=== PATIENT | female | born 1990 | race Caucasian/White ===

== ENCOUNTER 2017-11-25 13:31 | Inpatient (IN) | payer MEDICARE, MEDICAID ==
[2017-11-25] MEDS ORDERED: LORazepam 2 MG/ML INJ IV STA (14:03)
[2017-11-25] MEDS ORDERED: SODIUM CHLORIDE 0.9% 1,000 ML IV STA (14:04)
[2017-11-25] MEDS ORDERED: SODIUM CHLORIDE 0.9% 500 ML IV STA (14:04)
[2017-11-25] MEDS ORDERED: IBUPROFEN 800 MG TAB PO STA (14:05)
[2017-11-25] MEDS ORDERED: ACETAMINOPHEN TAB 500 MG TAB PO STA (14:05)
[2017-11-25 14:10] LABS: Appearance,Urine Cloudy (Clear); Bacteria,Urine Occasional /hpf; Bilirubin,Urine Negative (Negative); Blood,Urine Negative (Negative); Color,Urine Yellow; Glucose,Urine (UA) Negative (Negative); Ketones,Urine 3+ (Negative); Leukocyte Esterase,Urine Moderate (Negative); Mucus,Urine Many /hpf; Nitrite,Urine Negative (Negative); PH, Urine 6.5 (5.0-8.0); Protein,Urine 2+ (Negative); Specific Gravity,Urine 1.017 (1.001-1.035); Squamous Epithelial Cell,Urine 14 /hpf (0-4); WBC,Urine 30 /hpf (0-5)
[2017-11-25 14:17] LABS: Amphetamine Screen,Urine Not Detected (NotDetected); Benzodiazepines Screen,Urine Not Detected (NotDetected); Cocaine Screen,Urine Not Detected (NotDetected); Methadone Screen, Urine Not Detected (NotDetected); Opiate Screen,Urine Not Detected (NotDetected); Phencyclidine Screen,Urine Not Detected (NotDetected); Tricyclic Antidepressant,Urine Not Detected (NotDetected); Urn Cannabinoid Scrn Not Detected (NotDetected)
[2017-11-25 14:18] LABS: Barbiturate Screen,Urine Not Detected (NotDetected); Oxycodone Screen, Urine Not Detected (NotDetected)
[2017-11-25 14:22] LABS: Basophils % (A) 0 %; Eosinophils # (A) 0.1 k/uL (0-0.7); Eosinophils % (A) 1 %; HCT 38.1 % (34.0-46.0); Lymphocytes % (A) 21 %; MCH 32.3 pg (25.0-35.0); MCHC 34.1 g/dL (31.0-37.0); MCV 94.7 fL (80.0-100.0); Mean Platelet Volume 7.1; Monocytes # (A) 0.8 k/uL (0-1.0); Monocytes % (A) 8 %; Neutrophils # (A) 6.6 k/uL (1.3-7.7); Neutrophils % (A) 69 %; Platelet Count 186 k/uL (150-450); RBC 4.03 m/uL (3.80-5.40); RDW 14.2 % (11.5-15.5); WBC 9.6 k/uL (3.8-10.6)
--- NOTE | 2017-11-25 14:23 | ED ---
General Adult HPI - General Source: patient, RN notes reviewed, old records reviewed Mode of arrival: ambulatory Limitations: no limitations <Jones Corrigan - Last Filed: 11/25/17 14:22> <Tre Washburn - Last Filed: 11/25/17 18:25> - General Chief complaint: Psychiatric Symptoms Stated complaint: Mental health Time Seen by Provider: 11/25/17 13:36 - History of Present Illness Initial comments: This is a 19-year-old female to the ER for evaluation. She presents today for evaluation of psychiatric illness, patient was found at [facility] earlier today wandering around with very pressured speech and altered mental state, not acting appropriate. Patient's brought in by her former counselor at [facility] as she has never seen in this behavior before. Patient's poor strain secondary to current clinical condition (Jones Corrigan) - Related Data Home Medications Medication Instructions Recorded Confirmed No Known Home Medications [No 11/25/17 11/25/17 Known Home Medications] Allergies Allergy/AdvReac Type Severity Reaction Status Date / Time bee pollen Allergy Unknown Verified 11/25/17 14:28 ciprofloxacin [From Cipro] Allergy Unknown Verified 11/25/17 14:28 ciprofloxacin HCl Allergy Unknown Verified 11/25/17 14:28 [From Cipro] lactose Allergy Unknown Verified 11/25/17 14:28 latex Allergy Rash/Hives Verified 11/25/17 14:28 Review of Systems ROS Other: All systems not noted in ROS Statement are negative. <Jones Corrigan - Last Filed: 11/25/17 14:22> ROS Other: All systems not noted in ROS Statement are negative. <Tre Washburn - Last Filed: 11/25/17 18:25> ROS Statement: Those systems with pertinent positive or pertinent negative responses have been documented in the HPI. Past Medical History Past Medical History: Asthma History of Any Multi-Drug Resistant Organisms: None Reported Past Surgical History: No Surgical Hx Reported Additional Past Surgical History / Comment(s): Myringotomy with tube placement Past Psychological History: ADD/ADHD, Anxiety, Depression, Schizoaffective Disorder Smoking Status: Current every day smoker Past Alcohol Use History: Occasional Past Drug Use History: None Reported - Past Family History Father Family Medical History: Hypertension <Jones Corrigan - Last Filed: 11/25/17 14:22> General Exam Limitations: no limitations General appearance: alert, in no apparent distress Head exam: Present: atraumatic, normocephalic, normal inspection Eye exam: Present: normal appearance, PERRL, EOMI. Absent: scleral icterus, conjunctival injection, periorbital swelling ENT exam: Present: normal exam, mucous membranes moist Neck exam: Present: normal inspection. Absent: tenderness, meningismus, lymphadenopathy Respiratory exam: Present: normal lung sounds bilaterally. Absent: respiratory distress, wheezes, rales, rhonchi, stridor Cardiovascular Exam: Present: regular rate, normal rhythm, normal heart sounds. Absent: systolic murmur, diastolic murmur, rubs, gallop, clicks GI/Abdominal exam: Present: soft, normal bowel sounds. Absent: distended, tenderness, guarding, rebound, rigid Extremities exam: Present: normal inspection, full ROM, normal capillary refill. Absent: tenderness, pedal edema, joint swelling, calf tenderness Back exam: Present: normal inspection Neurological exam: Present: alert, oriented X3, CN II-XII intact Psychiatric exam: Present: normal affect, normal mood Skin exam: Present: warm, dry, intact, normal color. Absent: rash <Jones Corrigan - Last Filed: 11/25/17 14:22> Vital Signs 11/25/17 11/25/17 13:38 16:58 Temperature 100.3 F H 99.2 F Pulse Rate 128 H 92 Respiratory 18 18 Rate Blood Pressure 158/70 138/64 O2 Sat by Pulse 99 99 Oximetry Medical Decision Making <Jones Corrigan - Last Filed: 11/25/17 14:22> - Lab Data Result diagrams: 11/25/17 14:10 11/25/17 14:10 <Tre Washburn - Last Filed: 11/25/17 18:25> - Medical Decision Making Patient evaluated by EPS, she does meet inpatient psychiatric treatment. She will be admitted to this institution. Patient's urine does have signs of infection, this is contaminated urine. Urine culture will be obtained. Patient is started on Keflex that she is currently . Patient is uncertain how far along she was provided ultrasound will be obtained. She denies any vaginal bleeding or vaginal discharge. Ultrasound shows 12 week 3 day gestation, no complications. Patient will be admitted for inpatient psychiatric care. (Tre Washburn) - Lab Data Lab Results 11/25/17 11/25/17 11/25/17 Range/Units 13:48 13:48 13:48 WBC (3.8-10.6) k/uL RBC (3.80-5.40) m/uL Hgb (11.4-16.0) gm/dL Hct (34.0-46.0) % MCV (80.0-100.0) fL MCH (25.0-35.0) pg MCHC (31.0-37.0) g/dL RDW (11.5-15.5) % Plt Count (150-450) k/uL Neutrophils % % Lymphocytes % % Monocytes % % Eosinophils % % Basophils % % Neutrophils # (1.3-7.7) k/uL Lymphocytes # (1.0-4.8) k/uL Monocytes # (0-1.0) k/uL Eosinophils # (0-0.7) k/uL Basophils # (0-0.2) k/uL Sodium (137-145) mmol/L Potassium (3.5-5.1) mmol/L Chloride (98-107) mmol/L Carbon Dioxide (22-30) mmol/L Anion Gap mmol/L BUN (7-17) mg/dL Creatinine (0.52-1.04) mg/dL Est GFR (MDRD) Af Amer (>60 ml/min/1.73 sqM) Est GFR (MDRD) Non-Af (>60 ml/min/1.73 sqM) Glucose (74-99) mg/dL Calcium (8.4-10.2) mg/dL Total Bilirubin (0.2-1.3) mg/dL AST (14-36) U/L ALT (9-52) U/L Alkaline Phosphatase (38-126) U/L Total Protein (6.3-8.2) g/dL Albumin (3.5-5.0) g/dL Urine Color Yellow Urine Appearance Cloudy H (Clear) Urine pH 6.5 (5.0-8.0) Ur Specific [place] 1.017 (1.001-1.035) Urine Protein 2+ H (Negative) Urine Glucose (UA) Negative (Negative) Urine Ketones 3+ H (Negative) Urine Blood Negative (Negative) Urine Nitrite Negative (Negative) Urine Bilirubin Negative (Negative) Urine Urobilinogen 2.0 (<2.0) mg/dL Ur Leukocyte Esterase Moderate H (Negative) Urine WBC 30 H (0-5) /hpf Ur Squamous Epith Cells 14 H (0-4) /hpf Urine Bacteria Occasional H (None) /hpf Urine Mucus Many H (None) /hpf Urine HCG, Qual Detected (Not Detectd) Salicylates mg/dL Urine Opiates Screen Not Detected (NotDetected) Ur Oxycodone Screen Not Detected (NotDetected) Urine Methadone Screen Not Detected (NotDetected) Ur Propoxyphene Screen Not Detected (NotDetected) Acetaminophen ug/mL Ur Barbiturates Screen Not Detected (NotDetected) U Tricyclic Antidepress Not Detected (NotDetected) Ur Phencyclidine Scrn Not Detected (NotDetected) Ur Amphetamines Screen Not Detected (NotDetected) U Methamphetamines Scrn Not Detected (NotDetected) U Benzodiazepines Scrn Not Detected (NotDetected) Urine Cocaine Screen Not Detected (NotDetected) U Marijuana (THC) Screen Not Detected (NotDetected) Serum Alcohol mg/dL 11/25/17 11/25/17 11/25/17 Range/Units 14:10 14:10 14:10 WBC 9.6 (3.8-10.6) k/uL RBC 4.03 (3.80-5.40) m/uL Hgb 13.0 (11.4-16.0) gm/dL Hct 38.1 (34.0-46.0) % MCV 94.7 (80.0-100.0) fL MCH 32.3 (25.0-35.0) pg MCHC 34.1 (31.0-37.0) g/dL RDW 14.2 (11.5-15.5) % Plt Count 186 (150-450) k/uL Neutrophils % 69 % Lymphocytes % 21 % Monocytes % 8 % Eosinophils % 1 % Basophils % 0 % Neutrophils # 6.6 (1.3-7.7) k/uL Lymphocytes # 2.0 (1.0-4.8) k/uL Monocytes # 0.8 (0-1.0) k/uL Eosinophils # 0.1 (0-0.7) k/uL Basophils # 0.0 (0-0.2) k/uL Sodium 137 (137-145) mmol/L Potassium 3.9 (3.5-5.1) mmol/L Chloride 106 (98-107) mmol/L Carbon Dioxide 20 L (22-30) mmol/L Anion Gap 11 mmol/L BUN 8 (7-17) mg/dL Creatinine 0.65 (0.52-1.04) mg/dL Est GFR (MDRD) Af Amer >60 (>60 ml/min/1.73 sqM) Est GFR (MDRD) Non-Af >60 (>60 ml/min/1.73 sqM) Glucose 87 (74-99) mg/dL Calcium 9.4 (8.4-10.2) mg/dL Total Bilirubin 0.4 (0.2-1.3) mg/dL AST 36 (14-36) U/L ALT 26 (9-52) U/L Alkaline Phosphatase 47 (38-126) U/L Total Protein 6.7 (6.3-8.2) g/dL Albumin 3.8 (3.5-5.0) g/dL Urine Color Urine Appearance (Clear) Urine pH (5.0-8.0) Ur Specific [place] (1.001-1.035) Urine Protein (Negative) Urine Glucose (UA) (Negative) Urine Ketones (Negative) Urine Blood (Negative) Urine Nitrite (Negative) Urine Bilirubin (Negative) Urine Urobilinogen (<2.0) mg/dL Ur Leukocyte Esterase (Negative) Urine WBC (0-5) /hpf Ur Squamous Epith Cells (0-4) /hpf Urine Bacteria (None) /hpf Urine Mucus (None) /hpf Urine HCG, Qual (Not Detectd) Salicylates <1.0 mg/dL Urine Opiates Screen (NotDetected) Ur Oxycodone Screen (NotDetected) Urine Methadone Screen (NotDetected) Ur Propoxyphene Screen (NotDetected) Acetaminophen <10.0 ug/mL Ur Barbiturates Screen (NotDetected) U Tricyclic Antidepress (NotDetected) Ur Phencyclidine Scrn (NotDetected) Ur Amphetamines Screen (NotDetected) U Methamphetamines Scrn (NotDetected) U Benzodiazepines Scrn (NotDetected) Urine Cocaine Screen (NotDetected) U Marijuana (THC) Screen (NotDetected) Serum Alcohol <10 mg/dL Disposition <Jones Corrigan - Last Filed: 11/25/17 14:22> Decision to Admit Reason: Admit from EC Decision Date: 11/25/17 Decision Time: 17:24 <Tre Washburn - Last Filed: 11/25/17 18:25> Clinical Impression: Psychosis, Acute psychosis Disposition: ADMITTED IP TO THIS HOSP
[2017-11-25 14:34] LABS: Acetaminophen <10.0 ug/mL; Alcohol <10 mg/dL; Salicylate <1.0 mg/dL
[2017-11-25] MEDS ORDERED: CEPHALEXIN 500 MG CAP PO STA (17:28)
[2017-11-25 17:50] LABS: ALT 26 U/L (9-52); AST 36 U/L (14-36); Albumin 3.8 g/dL (3.5-5.0); Alkaline Phosphatase 47 U/L (38-126); Anion Gap 11 mmol/L; Blood Urea Nitrogen 8 mg/dL (7-17); Calcium 9.4 mg/dL (8.4-10.2); Carbon Dioxide 20 mmol/L (22-30); Chloride 106 mmol/L (98-107); Glucose 87 mg/dL (74-99); Potassium 3.9 mmol/L (3.5-5.1); Sodium 137 mmol/L (137-145); Total Bilirubin 0.4 mg/dL (0.2-1.3); Total Protein 6.7 g/dL (6.3-8.2)
--- NOTE | 2017-11-25 18:20 | US ---
EXAMINATION TYPE: US OB <= 14 wk fetus DATE OF EXAM: 11/25/2017 COMPARISON: NONE CLINICAL HISTORY: Pain. EXAM PERFORMED: Transabdominal (TA) EXAM MEASUREMENTS: GESTATIONAL AGE / DATING Physician Established: Not yet established Dates by LMP: (12 weeks/5 days) EDC: 06/04/2018 Dates by First Scan: No previous this is first scan Dates by Current Scan for: (12 weeks/3 days) EDC: 06/06/2018 MATERNAL ANATOMY Uterus: 13.6 x 8.0 x 9.9 cm Right Ovary: 2.1 x 1.6 x 2.1 cm Left Ovary: 3.2 x 1.5 x 2.1 cm Post CDS / Adnexa: wnl Presence of free fluid: no Presence of corpus luteal cyst: no Presence of subchorionic bleed: no GESTATION / SURVEY CRL: 5.9cm (12 weeks/3 days) Heart Rate: 168 bpm Rhythm: Normal IUP: Viable IUP Date of LMP: 08/28/2017 Beta HcG (if available): Not available at this time Viable IUP 12w3d KAREN 06/06/2018 HR 168 BPM IMPRESSION: No complicating process seen. This is the first exam.
[2017-11-25] MEDS ORDERED: ACETAMINOPHEN TAB 325 MG TAB PO PRN (22:38)
[2017-11-25] MEDS ORDERED: SODIUM CHLORIDE 0.9% 1,000 ML IV SCH (22:45)
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
[2017-11-26] MEDS: CEPHALEXIN 500 MG CAP PO SCH ×2 (08:46→20:28)
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
[2017-11-26] MEDS ORDERED: DOCUSATE 100 MG CAP PO PRN (10:23)
[2017-11-26] MEDS ORDERED: CALCIUM CARBONATE 500 MG CHEWABLE PO PRN (10:23)
[2017-11-26] MEDS: ARIPiprazole 10 MG TAB PO SCH (10:44)
--- NOTE | 2017-11-26 11:15 | P.PN ---
Subjective Progress Note Date: 11/26/17 Principal diagnosis: Patient is a 27-year-old female who is and is seen on the psychiatric unit after being referred from [facility] for abnormal behaviors. In the ER she was found to have a positive urine test and dates by ultrasound show 12 weeks 3 days, dates by last period showed 12 weeks 5 days. Also found to have a urinary tract infection with fever and tachycardia. Tachycardia may be due more to her than actual sepsis. She clinically does not appear septic. Patient seen and examined. She would not leave the hallway to talk or be seen. She is having word salad and jumping thought process. Her thinking is tangential and she is unable to answer questions. She is demonstrating palilalia. We are unable to have a meaningful conversation. Objective - Vital Signs Vital signs: Vital Signs Temp 98.3 F 11/26/17 07:14 Pulse 87 11/26/17 07:14 Resp 16 11/26/17 07:14 BP 119/56 11/26/17 07:14 Pulse Ox 99 11/25/17 16:58 Intake & Output 11/25/17 11/26/17 11/26/17 18:59 06:59 18:59 Intake Total 1000 Balance 1000 Weight 99.79 kg 97.1 kg Intake: IV 1000 Invasive Line 1 1000 - Exam General: non toxic, no distress, appears at stated age Derm: warm, dry Head: atraumatic, normocephalic, symmetric Eyes: EOMI, no lid lag, anicteric sclera Cardiovascular: S1S2 reg, no murmur Psych: Alert, oriented to self, anxious, flight of ideas - Labs CBC & Chem 7: 11/25/17 14:10 11/25/17 14:10 Labs: Abnormal Lab Results - Last 24 Hours (Table) 11/25/17 11/25/17 Range/Units 13:48 14:10 Carbon Dioxide 20 L (22-30) mmol/L Urine Appearance Cloudy H (Clear) Urine Protein 2+ H (Negative) Urine Ketones 3+ H (Negative) Ur Leukocyte Esterase Moderate H (Negative) Urine WBC 30 H (0-5) /hpf Ur Squamous Epith Cells 14 H (0-4) /hpf Urine Bacteria Occasional H (None) /hpf Urine Mucus Many H (None) /hpf Microbiology - Last 24 Hours (Table) 11/25/17 14:10 Urine Culture - Preliminary Urine,Voided Assessment and Plan Assessment: Intrauterine 12 weeks 3 days - vitamin - will need to see an UNDERGROUND [facility]ER after discharge, may need MFM with use of antipsychotics Probable UTI - Keflex - Await urine culture Psychosis - your psych management Will plan to follow urine culture daily, will attempt to re-eval once more coherent to determine plan of care for .
[2017-11-26] MEDS: PRENATAL VIT-IRON-FOLIC ACID 1 EACH CAP PO SCH (12:00)
[2017-11-27] MEDS: CEPHALEXIN 500 MG CAP PO SCH ×2 (09:52→21:33)
[2017-11-27] MEDS: ARIPiprazole 10 MG TAB PO SCH (09:52)
[2017-11-27] MEDS: PRENATAL VIT-IRON-FOLIC ACID 1 EACH CAP PO SCH (12:56)
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
[2017-11-28] MEDS: CEPHALEXIN 500 MG CAP PO SCH ×2 (09:51→21:41)
[2017-11-28] MEDS: ARIPiprazole 10 MG TAB PO SCH (09:51)
--- NOTE | 2017-11-28 10:54 | P.PN ---
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 She then said "Sorry I can't do this". Said sorry multiple times and walked away with tears. Then in the kline speaking nonsensically. Will attempt to follow-up again in a few days. If she is unable to converse about this may need to have social work d/w family about pernatal care. Nayely Medina, DO
[2017-11-28] MEDS ORDERED: diphenhydrAMINE 50 MG CAP PO PRN (13:01)
[2017-11-28] MEDS: PRENATAL VIT-IRON-FOLIC ACID 1 EACH CAP PO SCH (13:31)
--- NOTE | 2017-11-28 15:24 | PN ---
PROGRESS NOTE DATE OF SERVICE: 11/28/2017 INTERVAL HISTORY: Patient is seen in cross coverage today for Dr. Lord. She is seen with female nursing staff present. Her thought processes are very disorganized during the session. She was seen earlier during the day on the unit banging against the nurses station door. MENTAL STATUS EXAM: She is alert, cooperative with coming to the interview room with nursing staff. Her thought processes are very disorganized and tangential. She does not make any statements about harm to self or others. She does not show any significant agitation during this time. She does make motions with her hands. PLAN: Will maintain Abilify as current. Monitor for any medication side effects. Monitor her ongoing response. Benadryl p.r.n. has been ordered in case there is any significant agitation. Dr. Lord to resume care of this patient starting tomorrow. MMNELIL / IJFelix: [id number] /
[2017-11-29] MEDS: ARIPiprazole 10 MG TAB PO SCH (08:26)
[2017-11-29] MEDS ORDERED: ARIPiprazole 5 MG TAB PO ONE (10:54)
--- NOTE | 2017-11-29 10:59 | P.PN ---
Progress Note - Text Interval history: The patient is found in the hallway she follows me to an interview room. She is seated in the chair but frequently moves. She has frequent odd gesturing of her hands and arms. She has spontaneous speech that is pressured and her thought process is quite disorganized. She does not answer any questions in a linear fashion. Staff report that the patient remains confused and demonstrated symptoms of edward and psychosis. Mental status exam: The patient is a female appearing her stated age. She is wearing eyeglasses. She is dressed in hospital gowns. She continues to demonstrate symptoms of edward with psychosis. Insight and judgment are poor. She demonstrates no verbal or physical aggressiveness. Eventually she is directable in the session. She answers no questions regarding cognitive testing. A full psychiatric review of systems could not be completed. Plan: The patient has been compliant with the Abilify we will titrate to 15 mg daily. Vital signs reviewed. Internal medicine has attempted to meet with the patient. We will continue to monitor the patient for safety we will monitor her by mouth intake. She requires continued psychiatric hospitalization due to her symptoms of edward and psychosis. She requires use of an antipsychotic medication to stabilize her symptoms.
[2017-11-29] MEDS: PRENATAL VIT-IRON-FOLIC ACID 1 EACH CAP PO SCH (12:43)
[2017-11-29] MEDS ORDERED: diphenhydrAMINE 50 MG CAP PO PRN (17:17)
[2017-11-29] MEDS: diphenhydrAMINE 50 MG/ML 1 ML VIAL IM PRN (17:19)
[2017-11-30] MEDS: diphenhydrAMINE 50 MG/ML 1 ML VIAL IM PRN (06:30)
[2017-11-30] MEDS: ARIPiprazole 15 MG TAB PO SCH (09:11)
[2017-11-30] MEDS: PRENATAL VIT-IRON-FOLIC ACID 1 EACH CAP PO SCH (11:17)
--- NOTE | 2017-11-30 12:01 | P.PN ---
Progress Note - Text Interval history: The patient is found in her room she follows me to an interview room. Staff reports that the patient had difficulty sleeping last night she has demonstrated some agitated behavior being physically aggressive with staff. The patient's is seated in the chair she has nonstop speech. She demonstrates flight of ideas. She answers no questions in a relevant fashion. Metal status exam: The patient is an alert female she seated in the chair she is wrapped in a blanket. She has a disheveled appearance. Eye contact is staring in nature. Speech is fluent spontaneous and is pressured. She does not speak in a loud tone during our session. Thought process demonstrates flight of ideas. There is no discernible link between topics she discusses. She speaks of paranoid and persecutory themes. Insight and judgment are poor. She does not answer any questions regarding cognitive testing. Plan: The patient remains manic with symptoms of psychosis. We have increased the Abilify. She did receive Benadryl last evening for agitation. Vital signs reviewed. We will continue to monitor her for safety and encourage appropriate participation in the milieu. Reality orientation is provided when possible. She requires continued hospitalization.
[2017-11-30] MEDS ORDERED: CALCIUM CARBONATE 500 MG CHEWABLE PO ONE (23:52)
[2017-12-01] MEDS ORDERED: HALOPERIDOL LACTATE 5 MG/ML 1 ML VIAL ONE ×2 (01:57→02:00)
[2017-12-01] MEDS: ARIPiprazole 15 MG TAB PO SCH (09:15)
[2017-12-01] MEDS: PRENATAL VIT-IRON-FOLIC ACID 1 EACH CAP PO SCH (09:15)
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
--- NOTE | 2017-12-01 15:56 | US ---
EXAMINATION TYPE: US OB <= 14 wk fetus DATE OF EXAM: 12/01/2017 COMPARISON: NONE CLINICAL HISTORY: Viability due to possible vaginal bleeding. . bleeding, no pain EXAM PERFORMED: Transabdominal (TA) EXAM MEASUREMENTS: GESTATIONAL AGE / DATING Dates by LMP: (13 weeks/4 days) EDC: 06/04/2018 Dates by Current Scan for: (13 weeks/5 days) EDC: 06/03/2018 MATERNAL ANATOMY Uterus: 13.6 x 10.1 x 7.8 cm Right Ovary: 2.9 x 2.2 x 2.2 cm Left Ovary: Not visualized Post CDS / Adnexa: wnl, no free fluid Presence of free fluid: no Presence of corpus luteal cyst: right ovarian hypoechoic lesion with internal debris = 1.9 x 1.6 x 1. 6 cm Presence of subchorionic bleed: Hypoechoic lesion seen in fundal region at tip of placenta = 3.4 x 3. 8 x 1.2 cm GESTATION / SURVEY CRL: 7.7 cm (13 weeks/5 days) MSD: Seen, not measured Yolk Sac (normal less than 6mm): Not seen Heart Rate: 149 bpm Rhythm: Normal IUP: Viable IUP Date of LMP: 08/28/2017 Live single IUP measuring 13 weeks 5 days. IMPRESSION: Single viable intrauterine corresponding to an ultrasound age of 13 weeks 5 days with estim ated date of delivery 06/03/2018. There is a probable subchorionic hemorrhage as described.
[2017-12-01] MEDS ORDERED: diphenhydrAMINE 50 MG CAP PO SCH (19:00)
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
[2017-12-02] MEDS: PRENATAL VIT-IRON-FOLIC ACID 1 EACH CAP PO SCH (11:13)
[2017-12-02] MEDS: diphenhydrAMINE 50 MG CAP PO SCH (19:19)
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
[2017-12-03 10:13] LABS: HCT 37.7 % (34.0-46.0); HGB 12.9 gm/dL (11.4-16.0); MCH 31.9 pg (25.0-35.0); MCHC 34.1 g/dL (31.0-37.0); MCV 93.4 fL (80.0-100.0); Mean Platelet Volume 6.8; Platelet Count 212 k/uL (150-450); RBC 4.04 m/uL (3.80-5.40); WBC 9.3 k/uL (3.8-10.6)
[2017-12-03 11:24] LABS: Lymphocytes # (M) 1.95 k/uL (1.0-4.8); Monocytes # (M) 0.19 k/uL (0-1.0); Neutrophils # (M) 7.25 k/uL (1.3-7.7); Neutrophils % (M) 78 %; Nucleated Red Blood Cells 0 /100 WBC (0-0); Total Cells Counted 200
[2017-12-03] MEDS: PRENATAL VIT-IRON-FOLIC ACID 1 EACH CAP PO SCH (11:45)
--- NOTE | 2017-12-03 12:25 | PN ---
PROGRESS NOTE DATE OF SERVICE: 12/03/2017 CHIEF COMPLAINT: The patient was admitted due to edward with psychosis. She had pressured speech, incoherent thoughts, mood swings, and disorganized thoughts. INTERVAL HISTORY: Patient has been doing fair. She had a quiet evening last night. She slept 5 hours. Today she has been up. She wanders about. She has not been taking her Abilify. She did have some difficulty yesterday and received Benadryl which seemed to help calm her. She has not been attending groups. Mostly she wanders the unit. She will make odd statements. Her mood is moderately elevated. She has disorganized thoughts. She was seen by Dr. Whiteside for OB consultation. She was assessed as a 14-week intrauterine with a small subchronic bleed that was clinically stable. There were no further recommendations from her general OB status. She had been tolerating her psychotropic medication. MENTAL STATUS: Patient was wandering. She made a few comments that were disconnected. She had a faint smile on her face. Her affect was constricted. Her mood appeared somewhat elevated. It was difficult to say if she was distressed. ASSESSMENT: I will continue the current diagnosis and treatment plan. We will continue to encourage her to get restarted on Abilify. Will continue to focus on stabilization and discharge planning. STONEL / LITON: [id number] /
[2017-12-03 17:40] LABS: HIV AB P24 Non-Reactive (Non-Reactive); HIV P24 AG Non-Reactive (Non-Reactive)
[2017-12-03] MEDS: diphenhydrAMINE 50 MG CAP PO SCH (19:11)
[2017-12-04] MEDS ORDERED: HALOPERIDOL 5 MG TAB PO SCH (11:00)
[2017-12-04] MEDS: PRENATAL VIT-IRON-FOLIC ACID 1 EACH CAP PO SCH (11:14)
--- NOTE | 2017-12-04 13:08 | PN ---
PROGRESS NOTE DATE OF SERVICE: 12/04/2017 CHIEF COMPLAINT: The patient was admitted due to edward with psychosis. She had pressured speech, incoherent thoughts, mood swings and disorganized thoughts. INTERVAL HISTORY: The patient has been doing fair. She wandered about last evening. She slept about 5 hours. She said she did not sleep very well last night. She wanders about the unit. She will interact a little with others. She continues to be disorganized in her thoughts. She will make random comments to people around her. She does not attend groups. She says she has been having problems with anxiety. She continues to have disorganized thoughts and intense and racing thoughts at times, flight of ideas, elevated mood. She has been refusing to take Abilify which had been prescribed. She is focused on medications that Dr. Allen had prescribed through [facility]. She has not had change in her general health. She tolerates her psychotropic medications. MENTAL STATUS: Patient gave fair eye contact. She was restless. She tended to ramble. Her thoughts at times were disorganized. Her affect was somewhat intense, her mood expansive. It was difficult to say if she was distressed. ASSESSMENT: I will continue the current diagnosis and treatment plan. I had an extensive discussion with the patient regarding treatment options. It is noted that she previously had been on Prolixin Decanoate 25 mg IM back in August. I discussed use of first generation versus second generation antipsychotics. The patient was willing to get restarted on an anti-psychotic/anti-manic medication. I will start the patient on Zyprexa 5 mg 3 times a day. I would reference 2 journal articles relating to antipsychotics in . The first is J Alcoholism and Drug Dependency, reference 13. J Psychiatry PRACT noting that olanzapine, risperidone and quetiapine are the 3 most common anti-psychotic medications prescribed in . The second reference BMJ 20 Mar 2015; a study of 52,000 women with 1323 women on anti-psychotic medications which noted no significant increase in -related problems with use of second generation anti-psychotics. MMODL / IJN: [id number] / MTDD
[2017-12-04] MEDS: OLANZapine 5 MG TAB PO SCH ×2 (16:45→21:45)
[2017-12-04] MEDS: diphenhydrAMINE 50 MG CAP PO SCH (18:59)
[2017-12-05] MEDS: OLANZapine 5 MG TAB PO SCH ×3 (08:11→20:48)
[2017-12-05] MEDS: PRENATAL VIT-IRON-FOLIC ACID 1 EACH CAP PO SCH (12:29)
--- NOTE | 2017-12-05 13:12 | PN ---
PROGRESS NOTE DATE OF SERVICE: 12/05/2017. CHIEF COMPLAINT: The patient was admitted due to edward with psychosis. She had pressured speech and coherent thoughts, mood swings and disorganized thoughts. She is with date of LMP 08/28/2017. INTERVAL HISTORY: Patient has been doing fair. She had a quiet evening last night. She slept fair today. She has been up early in the morning. She was quite distressed, was not exactly clear what was bothering her. She was making statements about the paperwork and court issues. She seemed a little disorganized in her thoughts. As the morning went on that seemed to clear and her mood evened out. She says that she does tend to have some down mood in the morning time that typically seems to go better as the day goes on. When I saw her she had a calm manner. She was interactive. She was out in the day area. She continues to make some odd statements and is a little disconnected from things going on around her. She has not had change in her general health. She tolerates her psychotropic medications. MENTAL STATUS: Patient gave fair eye contact. Psychomotor activity was a little restless. Speech was generally clear though her thoughts were vague and somewhat tangential. Her affect was a little constricted. She smiled some. Her mood was quiet. She did not appear to be distressed. ASSESSMENT: I will continue the current diagnosis and treatment plan. I will continue psychotropic medications the same. We will focus on stabilization and discharge planning. ADIS / MICHELL: [id number] /
[2017-12-05] MEDS: diphenhydrAMINE 50 MG CAP PO SCH (18:20)
[2017-12-06] MEDS: OLANZapine 5 MG TAB PO SCH ×3 (10:27→21:52)
[2017-12-06] MEDS: PRENATAL VIT-IRON-FOLIC ACID 1 EACH CAP PO SCH (12:11)
--- NOTE | 2017-12-06 13:56 | PN ---
PROGRESS NOTE DATE OF SERVICE: 12/06/2017 CHIEF COMPLAINT: The patient was admitted due to edward with psychosis. She had pressured speech, incoherent thoughts, mood swings and disorganized thoughts. She is with a date of LMP 08/28/2017. INTERVAL HISTORY: Patient has been doing fair. She had a quiet evening last night. She slept fairly well today. She has been up. Staff note that overall she seems to be clearer in her thoughts. She communicates more appropriately. She has been able to talk about some discharge issues with clear thoughts and appropriate planning. She tends to wonder about the unit in the day. She will interact a little with others, though mostly keeps to herself. She goes to group activities sporadically. She does say that she feels better in her mood. She also says that her thoughts seem more organized. She was able to talk about needing to get in touch with the landlord and work out a plan for returning to her apartment. She has not had change in her general health. She tolerates his psychotropic medications. MENTAL STATUS: Patient gave good eye contact. Psychomotor activity was a little restless. Her speech was clear. She answered questions with direct responses. She was just mildly loosen some of her associations. Her affect was in a reasonable range. Her mood was somewhat expansive. She did not appear to be distressed. ASSESSMENT: I will continue the current diagnosis and treatment plan, continue psychotropic medications the same. Patient appears to be making progress. We will aim to discharge the patient hopefully by the end of the week. MMPJ / LITON: [id number] /
[2017-12-06] MEDS: diphenhydrAMINE 50 MG CAP PO SCH (19:01)
[2017-12-07] MEDS: OLANZapine 5 MG TAB PO SCH ×3 (09:28→21:23)
[2017-12-07] MEDS: PRENATAL VIT-IRON-FOLIC ACID 1 EACH CAP PO SCH (11:56)
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
[2017-12-07 15:55] VITALS: BMI 34.0
[2017-12-07] MEDS: diphenhydrAMINE 50 MG CAP PO SCH (21:24)
[2017-12-08] MEDS: OLANZapine 5 MG TAB PO SCH ×3 (09:42→21:39)
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
[2017-12-08] MEDS: PRENATAL VIT-IRON-FOLIC ACID 1 EACH CAP PO SCH (11:13)
[2017-12-08] MEDS: diphenhydrAMINE 50 MG CAP PO SCH (18:19)
[2017-12-09] MEDS: OLANZapine 5 MG TAB PO SCH ×3 (08:46→21:19)
--- NOTE | 2017-12-09 11:11 | P.PN ---
Progress Note - Text Interval history: The patient is found in her room she follows me to an interview room. She reports that she is stabilizing her mood is improving. She feels that her thinking is more clear. Staff report that the patient is in fact improving each day. She does have court scheduled for tomorrow and we again discussed the reasons for the hearing and her questions were answered. She continues to comply with the Zyprexa. She asks that the Benadryl no longer be scheduled in the afternoon and that we just keep it as needed. Mental status exam: The patient is alert she is dressed in her own clothing hygiene grooming is adequate. She is pleasant and cooperative she is directable. Her symptoms of edward continue to improve each day. She is no longer pressured she is verbose but is easily directable in the conversation. She is reporting no suicidal or homicidal ideation intent or plan. She is endorsing no auditory or visual hallucinations she is endorsing no specific delusions. Her thinking does appear to be much more objective. She still is circumstantial at times less frequently tangential. She demonstrates no loose associations or flight of ideas today. She demonstrates no verbal or physical aggressiveness. She demonstrates no abnormal involuntary movements. Plan: The patient will continue on her current medication we will monitor her for safety. We will consider possibly discharging her in the next 1-2 days depending on her continued clinical progress/stability. She does have a court hearing scheduled for tomorrow. Vital signs reviewed.
[2017-12-09] MEDS: PRENATAL VIT-IRON-FOLIC ACID 1 EACH CAP PO SCH (11:52)
[2017-12-10 06:34] VITALS: BP 102/51; PULSE 81; RESP 16; TEMP 98.6
[2017-12-10] MEDS: OLANZapine 5 MG TAB PO SCH (08:32)
[2017-12-10] MEDS: PRENATAL VIT-IRON-FOLIC ACID 1 EACH CAP PO SCH (10:41)
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
== END 2017-12-10 14:04 | disposition home or self-care (01) | DRG 781 ==
LOC: EC 13:31 → 3MHU 18:14
PROVIDERS: ADMIT Psychiatry & Neurology Psychiatry; ATTEND Psychiatry & Neurology Psychiatry
DX: O99.341 Other mental disorders complicating pregnancy, first trimester (principal); F25.0 Schizoaffective disorder, bipolar type; O23.41 Unspecified infection of urinary tract in pregnancy, first trimester; F23 Brief psychotic disorder; J45.909 Unspecified asthma, uncomplicated; R45.1 Restlessness and agitation; F11.11 Opioid abuse, in remission; O34.81 Maternal care for other abnormalities of pelvic organs, first trimester; O99.331 Smoking (tobacco) complicating pregnancy, first trimester; F17.210 Nicotine dependence, cigarettes, uncomplicated; N83.10 Corpus luteum cyst of ovary, unspecified side; O99.511 Diseases of the respiratory system complicating pregnancy, first trimester; F41.9 Anxiety disorder, unspecified; F90.9 Attention-deficit hyperactivity disorder, unspecified type; R00.0 Tachycardia, unspecified; R48.8 Other symbolic dysfunctions; Z71.41 Alcohol abuse counseling and surveillance of alcoholic; Z3A.12 12 weeks gestation of pregnancy; Z82.49 Family history of ischemic heart disease and other diseases of the circulatory system; Z91.5 Personal history of self-harm; Z91.030 Bee allergy status; Z91.040 Latex allergy status; Z91.011 Allergy to milk products; Z88.1 Allergy status to other antibiotic agents; Z79.899 Other long term (current) drug therapy; Z71.51 Drug abuse counseling and surveillance of drug abuser
CPT/HCPCS: 36415; 76801; 80053; 80306; 80320; 81001; 81025; 82075; 83520; 84443; 85025; 86762; 86780; 86850; 86900; 86901; 87086; 87340; 87390; 96361; 96374; 99285

== ENCOUNTER 2017-12-16 00:06 | Inpatient (IN) | payer MEDICARE, MEDICAID ==
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
[2017-12-16 01:27] LABS: Amphetamine Screen,Urine Not Detected (NotDetected); Barbiturate Screen,Urine Not Detected (NotDetected); Benzodiazepines Screen,Urine Not Detected (NotDetected); Cocaine Screen,Urine Not Detected (NotDetected); Methadone Screen, Urine Not Detected (NotDetected); Opiate Screen,Urine Not Detected (NotDetected); Oxycodone Screen, Urine Not Detected (NotDetected); Phencyclidine Screen,Urine Not Detected (NotDetected); Tricyclic Antidepressant,Urine Not Detected (NotDetected); Urn Cannabinoid Scrn Not Detected (NotDetected)
[2017-12-16] MEDS ORDERED: OLANZapine ODT 10 MG TAB PO STA (02:04)
[2017-12-16] MEDS ORDERED: MAG HYDROX/AL HYDROX/SIMETH 30 ML CUP PO PRN (02:58)
[2017-12-16] MEDS ORDERED: MAGNESIUM HYDROXIDE 2,400 MG/10 ML CUP PO PRN (02:58)
[2017-12-16] MEDS ORDERED: ACETAMINOPHEN TAB 325 MG TAB PO PRN (02:58)
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
[2017-12-16] MEDS: PRENATAL VIT-IRON-FOLIC ACID 1 EACH CAP PO SCH (09:19)
[2017-12-16] MEDS: OLANZapine ODT 5 MG TAB PO SCH ×3 (09:30→21:47)
[2017-12-16] MEDS ORDERED: diphenhydrAMINE 50 MG CAP PO PRN (09:51)
[2017-12-16] MEDS ORDERED: diphenhydrAMINE 50 MG/ML 1 ML VIAL IM PRN (09:52)
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
[2017-12-17] MEDS: OLANZapine ODT 5 MG TAB PO SCH ×2 (09:15→22:12)
[2017-12-17] MEDS: PRENATAL VIT-IRON-FOLIC ACID 1 EACH CAP PO SCH (09:15)
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
[2017-12-17] MEDS ORDERED: HALOPERIDOL LACTATE 5 MG/ML 1 ML VIAL IM STA (21:52)
[2017-12-18] MEDS: PRENATAL VIT-IRON-FOLIC ACID 1 EACH CAP PO SCH (09:10)
--- NOTE | 2017-12-18 11:54 | P.PN ---
Progress Note - Text interval history: The patient is found in the hallway she follows me to an interview room. Staff and forming last evening the patient was refusing her scheduled dose of Zyprexa. She subsequently received an injection of Haldol as she is on a court order. Staff reported the patient did seem to get more agitated in the evening even before bedtime. Previously she had responded well to receiving Benadryl around dinnertime. Vital signs reviewed. The patient continues to have some disorganization of her thought. She is hoping to be discharged soon. Mental status exam: The patient is alert she is dressed in her own clothing she is wearing her eyeglasses. She has a disheveled appearance. She has spontaneous speech she is verbose. She is directable during the session. She demonstrates tangential thinking and loose associations. She is reporting no suicidal or homicidal ideation. She does continue to have features of edward. She does appear to have some disorganized delusional thoughts. She demonstrates no verbal or physical aggressiveness with me. There is some lability of affect as she is smiling throughout the session and then becomes tearful. Insight and judgment are impaired. Plan: The patient will continue on the prescribed dose of Zyprexa. She is encouraged to comply with the medication as written. As she is on a court order she will receive an injection if she refuses oral medication. She is encouraged to participate in the milieu we provide reality orientation when possible. She requires continued psychiatric hospitalization.
[2017-12-18] MEDS: OLANZapine ODT 5 MG TAB PO SCH (20:54)
[2017-12-19] MEDS: PRENATAL VIT-IRON-FOLIC ACID 1 EACH CAP PO SCH (08:38)
--- NOTE | 2017-12-19 12:16 | P.PN ---
Progress Note - Text Interval history: The patient is found in her room she follows me to an interview room. She did comply with the Zyprexa last evening and is taking her vitamin. She states that she is feeling better. She voices a willingness to comply with the medication further. She asks relevant questions regarding her participation in a community mental health intake appointment here on the mental health unit. She has no questions or concerns regarding medication. Mental status exam: The patient is alert she is dressed in her own clothing eye contact is appropriate speech is fluent spontaneous nonpressured. Her thought process is more organized today. She can be tangential at times but there was no evidence of loose associations or flight of ideas during our session. She is reporting no suicidal or homicidal ideation. She reports feeling safe here in the hospital. He spontaneously discusses some of her concerns regarding future planning after discharge. She demonstrates no abnormal involuntary movements. Affect is constricted but demonstrate some limited range. Plan: The patient will be continued on her current medication we will monitor her for safety. She is encouraged to fully participate in the milieu. As she continues to stabilize anticipate she will be appropriate for discharge sometime this week.
[2017-12-19] MEDS: OLANZapine ODT 5 MG TAB PO SCH (20:27)
[2017-12-20] MEDS: PRENATAL VIT-IRON-FOLIC ACID 1 EACH CAP PO SCH (09:48)
--- NOTE | 2017-12-20 09:49 | P.PN ---
Progress Note - Text Interval history: The patient is found at the telephone. She follows me to an interview room. She complied with the Zyprexa last evening and continues to take the vitamin. She reports that her thought process is becoming more organized. She expresses concern for her father whom she believes is that [facility] and her mother who was also medically ill. The patient reports she is eating well she states she slept well last night staff recorded she slept 8 hours. We discussed the importance of compliance with the Zyprexa and she is agreeable. She is scheduled to have an intake with [facility] here on the mental health unit today. Mental status exam: The patient is alert she is dressed in her own clothing she seated calmly. Eye contact is appropriate. Speech is fluent she is verbose but nonpressured and she is easily directed in the session. It appears that her thought process is becoming more organized each day. She is reporting no suicidal or homicidal ideation intent or plan. She is endorsing no auditory or visual hallucinations or specific delusions. Insight and judgment improving. She is oriented to person place and date. She demonstrates no verbal or physical aggressiveness she demonstrates no abnormal involuntary movements. Affect is congruent to reported mood and she demonstrates an appropriate range. Circumstantial thinking is reducing she demonstrates no tangential thinking loose associations or flight of ideas. Plan: The patient will continue on her current medications. I will anticipate discharging her tomorrow if she demonstrates continued stability and improvement. Again compliance with medication was emphasized. We will monitor her for safety. She will undergo the [facility] intake today.
[2017-12-20] MEDS: OLANZapine ODT 5 MG TAB PO SCH (20:35)
[2017-12-21 06:02] VITALS: BP 99/48; PULSE 56; RESP 14; TEMP 98.7
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
[2017-12-21] MEDS: PRENATAL VIT-IRON-FOLIC ACID 1 EACH CAP PO SCH (12:50)
== END 2017-12-21 12:50 | disposition home or self-care (01) | DRG 781 ==
LOC: EC 00:06 → 3MHU 02:20
PROVIDERS: ADMIT Psychiatry & Neurology Psychiatry; ATTEND Psychiatry & Neurology Psychiatry
DX: O99.342 Other mental disorders complicating pregnancy, second trimester (principal); F25.0 Schizoaffective disorder, bipolar type; F30.9 Manic episode, unspecified; F90.9 Attention-deficit hyperactivity disorder, unspecified type; O99.332 Smoking (tobacco) complicating pregnancy, second trimester; O26.892 Other specified pregnancy related conditions, second trimester; O99.512 Diseases of the respiratory system complicating pregnancy, second trimester; J45.909 Unspecified asthma, uncomplicated; F12.90 Cannabis use, unspecified, uncomplicated; Z3A.15 15 weeks gestation of pregnancy; Z72.89 Other problems related to lifestyle; Z79.899 Other long term (current) drug therapy; Z88.8 Allergy status to other drugs, medicaments and biological substances; Z88.1 Allergy status to other antibiotic agents; Z91.030 Bee allergy status
CPT/HCPCS: 80306; 81025; 82075; 99285

== ENCOUNTER 2018-05-22 17:35 | Outpatient (CLI) | payer MEDICARE, OTHER ==
[2018-05-22 18:50] VITALS: BP 124/76; PULSE 74; RESP 16; TEMP 97.9
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
== END 2018-05-22 18:16 | disposition home or self-care (01) ==
LOC: FBPOP 17:35
PROVIDERS: ATTEND Obstetrics & Gynecology
DX: Z33.1 Pregnant state, incidental (principal)
CPT/HCPCS: 59025; G0463; 99213

== ENCOUNTER 2018-05-25 16:41 | Outpatient (CLI) | payer MEDICARE, OTHER ==
[2018-05-25 17:40] VITALS: BP 129/85; PULSE 69; RESP 16; TEMP 97.3
--- NOTE | 2018-06-08 19:32 | P.MSEPDOC ---
Presenting Problems - Arrival Data Date of Arrival on Unit: 05/25/18 Time of Arrival on Unit: 16:45 Mode of Transport: Wheelchair - Complaint OB-Reason for Admission/Chief Complaint: NST Comment: sent from office for nst r/t low baseline and nonreactive nst in office Medical History - Information : 2 Para: 1 Term: 1 : 0 Abortions: Spontaneous or Elective: 0 Number of Living Children: 1 - Gestational Age Gestational Age by KAREN (wks/days): 38 Weeks and 4 Days - History Complications: Smoker Review of Systems - Review of Systems Constitutional: No problems Breast: No problems ENT: No problems Cardiovascular: No problems Respiratory: No problems Gastrointestinal: No problems Genitourinary: No problems Musculoskeletal: No problems Neurological: No problems Skin: No problems Vital Signs - Temperature Temperature: 97.3 F Temperature Source: Temporal Artery Scan - Pulse Right Brachial Pulse Rate: 69 Pulse Assessment Method: Automatic Cuff - Respirations Respiratory Rate: 16 Oxygen Delivery Method: Room Air - Blood Pressure Right Arm Blood Pressure: 129/85 Blood Pressure Mean: 99 Blood Pressure Source: Automatic Cuff Medical Screen Scoring (Pre) - Cervical Exam Dilation: Exam Deferred Effacement: Exam Deferred - Uterine Contractions Frequency: N/A Duration: N/A Intensity: N/A - Maternal Vital Signs Maternal Temperature: N/A Maternal Blood Pressure: N/A Signs of Preeclampsia: N/A Maternal Respirations: N/A - Maternal Trauma Maternal Trauma: N/A - Assessment Baseline FHR: 120 Heart Rate - NICHD Category: Category I (Normal) = 0 NST: Reactive Position: N/A Station: N/A - Total Score Total Score (Pre): 0 - Level of Risk Level of Risk: Low (0-5) Physician Notification (Pre) - Physician Notified Physician Notified Date: 05/25/18 Physician Notified Time: 17:14 Physician/Practitioner Notifed:: anthony Spoke With: anthony New Order Received: Yes - Notification Comment Comment: if reactive in 20 minutes, pt may be discharged home Disposition - Disposition OB Disposition: Discharge to home Discharge Date: 05/25/18 Discharge Time: 17:40 I agree with the RN Medical Screening Exam: Yes Risk & Benefit of care provided described in d/c instruction: Yes Diagnosis: DECREASED MOVEMENTS, THIRD TRIMESTER, UNSP
== END 2018-05-25 17:40 | disposition home or self-care (01) ==
LOC: FBPOP 16:41
PROVIDERS: ATTEND Obstetrics & Gynecology Obstetrics
DX: O36.8130 Decreased fetal movements, third trimester, not applicable or unspecified (principal); Z3A.38 38 weeks gestation of pregnancy
CPT/HCPCS: 59025; G0463; 99213

== ENCOUNTER 2018-05-26 17:14 | Inpatient (IN) | payer MEDICARE, OTHER ==
[2018-05-26] MEDS ORDERED: TERBUTALINE 1 MG/ML VIAL SQ PRN (18:30)
[2018-05-26] MEDS ORDERED: PENICILLIN G POTASSIUM 5,000,000 UNIT in DEXTROSE 5% IN WATER 100 ML IVPB STA ×2 (18:30)
[2018-05-26] MEDS ORDERED: OXYTOCIN 10 UNIT/ML 1 ML VIAL IM PRN (18:30)
[2018-05-26] MEDS ORDERED: CARBOPROST TROMETHAMINE 250 MCG/ML 1 ML AMP IM PRN (18:30)
[2018-05-26] MEDS ORDERED: LIDOCAINE 1% (PF) 10 MG/ML (30 ML SDV) SQ PRN (18:30)
[2018-05-26] MEDS ORDERED: METHYLERGONOVINE 0.2 MG/ML 1 ML AMP IM PRN (18:30)
[2018-05-26] MEDS ORDERED: OXYTOCIN 20 UNITS/1000 ML NS 1,000 ML IV SCH (18:30)
[2018-05-26 19:13] LABS: Basophils % (A) 0 %; Eosinophils # (A) 0.1 k/uL (0-0.7); Eosinophils % (A) 1 %; HCT 39.5 % (34.0-46.0); HGB 13.8 gm/dL (11.4-16.0); Lymphocytes # (A) 2.9 k/uL (1.0-4.8); Lymphocytes % (A) 23 %; MCH 34.1 pg (25.0-35.0); MCV 97.5 fL (80.0-100.0); Monocytes # (A) 0.5 k/uL (0-1.0); Monocytes % (A) 4 %; Neutrophils # (A) 8.7 k/uL (1.3-7.7); Neutrophils % (A) 70 %; Platelet Count 252 k/uL (150-450); RBC 4.05 m/uL (3.80-5.40); RDW 13.6 % (11.5-15.5); WBC 12.4 k/uL (3.8-10.6)
[2018-05-26] MEDS: LACTATED RINGERS 1,000 ML IV SCH ×2 (19:21→21:11)
[2018-05-26 19:34] VITALS: BMI 37.4
[2018-05-26] MEDS ORDERED: fentaNYL (PF) 50 MCG/ML 5 ML AMP ONE (20:39)
[2018-05-26] MEDS ORDERED: SODIUM CHLORIDE 0.9% 100 ML BAG ONE (20:39)
[2018-05-26] MEDS ORDERED: ROPIVACAINE 5MG/ML 20ML VIAL ONE (20:39)
[2018-05-27] MEDS ORDERED: SIMETHICONE 80 MG CHEWABLE PO PRN ×2 (04:57→07:01)
[2018-05-27] MEDS ORDERED: BENZOCAINE/MENTHOL SPRAY 1 GM/SPRAY AEROSOL TOPICAL PRN ×2 (04:57→07:01)
[2018-05-27] MEDS ORDERED: HYDROCORTISONE 2.5% RECTAL CREAM 30 GM TUBE RECTAL PRN ×2 (04:57→07:01)
[2018-05-27] MEDS ORDERED: diphenhydrAMINE 50 MG/ML 1 ML VIAL IVP PRN ×4 (04:57→07:01)
[2018-05-27] MEDS ORDERED: LANOLIN CREAM 5 GM TUBE TOPICAL PRN ×2 (04:57→07:01)
[2018-05-27] MEDS ORDERED: diphenhydrAMINE 25 MG CAP PO PRN ×2 (04:57→07:01)
[2018-05-27] MEDS ORDERED: diphenhydrAMINE 50 MG CAP PO PRN ×2 (04:57→07:01)
[2018-05-27] MEDS ORDERED: ZOLPIDEM 5 MG TAB PO PRN ×2 (04:57→07:01)
[2018-05-27] MEDS ORDERED: WITCH HAZEL 1 EACH MED..PAD TOPICAL PRN ×2 (04:57→07:01)
[2018-05-27] MEDS ORDERED: Rhogam IMMUNE GLOBULIN 1,500 UNIT/1 ML IM ONE (04:57)
[2018-05-27] MEDS ORDERED: OXYTOCIN 20 UNITS/1000 ML NS 1,000 ML IV SCH (05:00)
[2018-05-27] MEDS: PENICILLIN G POTASSIUM 2,500,000 UNIT in DEXTROSE 5% IN WATER 100 ML IVPB SCH ×2 (05:10)
[2018-05-27] MEDS ORDERED: ACETAMINOPHEN TAB 325 MG TAB PO PRN (07:01)
[2018-05-27] MEDS ORDERED: IBUPROFEN 600 MG TAB PO PRN (07:01)
[2018-05-27] MEDS ORDERED: SENNOSIDES-DOCUSATE SODIUM 1 EACH TAB PO SCH (08:00)
[2018-05-27] MEDS: IBUPROFEN 600 MG TAB PO PRN ×2 (08:14→17:27)
[2018-05-27] MEDS: SENNOSIDES-DOCUSATE SODIUM 1 EACH TAB PO SCH ×2 (08:15→23:56)
[2018-05-27] MEDS: ACETAMINOPHEN TAB 325 MG TAB PO PRN (21:38)
[2018-05-28 00:35] LABS: Amphetamine Screen,Urine Not Detected (NotDetected); Barbiturate Screen,Urine Not Detected (NotDetected); Benzodiazepines Screen,Urine Not Detected (NotDetected); Cocaine Screen,Urine Not Detected (NotDetected); Methadone Screen, Urine Not Detected (NotDetected); Opiate Screen,Urine Not Detected (NotDetected); Oxycodone Screen, Urine Not Detected (NotDetected); Phencyclidine Screen,Urine Not Detected (NotDetected); Tricyclic Antidepressant,Urine Not Detected (NotDetected); Urn Cannabinoid Scrn Not Detected (NotDetected)
[2018-05-28] MEDS: ACETAMINOPHEN TAB 325 MG TAB PO PRN ×2 (05:17→08:19)
[2018-05-28 07:57] LABS: Basophils % (A) 0 %; Eosinophils # (A) 0.1 k/uL (0-0.7); Eosinophils % (A) 1 %; HGB 12.2 gm/dL (11.4-16.0); Lymphocytes # (A) 2.9 k/uL (1.0-4.8); Lymphocytes % (A) 33 %; MCH 33.3 pg (25.0-35.0); MCV 97.9 fL (80.0-100.0); Mean Platelet Volume 7.2; Monocytes # (A) 0.5 k/uL (0-1.0); Monocytes % (A) 6 %; Neutrophils % (A) 57 %; Platelet Count 235 k/uL (150-450); RBC 3.67 m/uL (3.80-5.40); RDW 13.5 % (11.5-15.5); WBC 8.7 k/uL (3.8-10.6)
[2018-05-28 08:26] VITALS: BP 128/68; PULSE 59; RESP 16; TEMP 98.4
--- NOTE | 2018-05-28 09:10 | P.DS ---
Providers Date of admission: 05/26/18 18:18 Expected date of discharge: 05/28/18 Attending physician: Sreedhar Smith Primary care physician: Stated None Hospital Course: This is a 27 -year-old 2 para 1001 EDC 06/04/2018 at 38-5/7 weeks' gestation. Patient presents with spontaneous amniorrhexis, clear fluid. She was judged to be in active labor and admitted. history is significant for maternal history of psychotic disorder and schizophrenia, stable on medications at home. Blood type O-, rubella status immune, group B strep cultures positive. Please see dictated history and physical for details. Patient progressed through labor and went on to deliver vaginally a liveborn female infant with scores of 9 and 9 at one and 5 minutes respectively. Infant weighed 6 lbs. 9 oz. or 2965 g. No lacerations were encountered, no suturing necessary. Please see dictated delivery note for details. resident services supervisor consult has been obtained and is following the case. His morning the patient is doing well, she is voiding, and bleeding, passing flatus. Lochia rubra is minimal to moderate. Pain is well-controlled. Breast- feeding is going well. Patient has no psychotic disorders or signs or symptoms this morning, she is well oriented and alert and appropriate. In my judgment she is in good condition for discharge home. She is reminded no intercourse, tampons or douching. She will call the office with any fevers shakes or chills, foul smelling or copious lochia, with the passage of large blood clots, with any pain not alleviated by [id number] products, or indeed with any difficulties issues or concerns. She will resume her home medication. resident services supervisor will make a decision regarding status. I briefly discussed with her options for contraception and she will discuss this further with Dr. Smith in the office. Patient Condition at Discharge: Good Plan - Discharge Summary Discharge Rx Participant: No New Discharge Prescriptions: No Action Yea-Agst-Fhbct Acid [-U Capsule (formulary)] 1 cap PO DAILY OLANZapine [ZyPREXA] 15 mg PO HS #30 tablet Discharge Medication List Wcj-Vvjy-Akxxn Acid [-U Capsule (formulary)] 1 cap PO DAILY 06/25 [History] OLANZapine [ZyPREXA] 15 mg PO HS #30 tablet 12/21/17 [Rx] Follow up Appointment(s)/Referral(s): Sreedhar Smiht MD [STAFF PHYSICIAN] - 6 Weeks
== END 2018-05-28 10:45 | disposition home or self-care (01) | DRG 775 ==
LOC: FBPOP 17:14 → 4FBP 18:18
PROVIDERS: ADMIT Obstetrics & Gynecology; ATTEND Obstetrics & Gynecology
PROC: 00HU33Z Insertion of Infusion Device into Spinal Canal, Percutaneous Approach (ICD-10-PCS; principal; 2018-05-26)
PROC: 10E0XZZ Delivery of Products of Conception, External Approach (ICD-10-PCS; 2018-05-26)
PROC: 3E0R3NZ Introduction of Analgesics, Hypnotics, Sedatives into Spinal Canal, Percutaneous Approach (ICD-10-PCS; 2018-05-26)
PROC: 10D07Z8 Extraction of Products of Conception, Other, Via Natural or Artificial Opening (ICD-10-PCS; 2018-05-26)
DX: O69.89X0 Labor and delivery complicated by other cord complications, not applicable or unspecified (principal); O99.334 Smoking (tobacco) complicating childbirth; Z37.0 Single live birth; F17.210 Nicotine dependence, cigarettes, uncomplicated; O99.344 Other mental disorders complicating childbirth; F20.9 Schizophrenia, unspecified; O99.824 Streptococcus B carrier state complicating childbirth; F29 Unspecified psychosis not due to a substance or known physiological condition; Z3A.38 38 weeks gestation of pregnancy; Z79.899 Other long term (current) drug therapy
CPT/HCPCS: 59025; 80306; 85025; 85461; 99213

== ENCOUNTER 2018-07-12 21:04 | Inpatient (IN) | payer MEDICARE, MEDICAID ==
[2018-07-13 03:00] LABS: Basophils # (A) 0.1 k/uL (0-0.2); Basophils % (A) 1 %; Eosinophils # (A) 0.2 k/uL (0-0.7); Eosinophils % (A) 3 %; HCT 38.9 % (34.0-46.0); HGB 13.3 gm/dL (11.4-16.0); Lymphocytes # (A) 2.8 k/uL (1.0-4.8); Lymphocytes % (A) 46 %; MCH 33.9 pg (25.0-35.0); MCHC 34.2 g/dL (31.0-37.0); MCV 99.1 fL (80.0-100.0); Mean Platelet Volume 6.9; Monocytes # (A) 0.3 k/uL (0-1.0); Monocytes % (A) 5 %; Neutrophils # (A) 2.5 k/uL (1.3-7.7); Neutrophils % (A) 41 %; Platelet Count 273 k/uL (150-450); RBC 3.93 m/uL (3.80-5.40); RDW 12.5 % (11.5-15.5); WBC 6.1 k/uL (3.8-10.6)
[2018-07-13 03:10] LABS: Anion Gap 17 mmol/L; Blood Urea Nitrogen 9 mg/dL (7-17); Calcium 9.3 mg/dL (8.4-10.2); Carbon Dioxide 16 mmol/L (22-30); Chloride 107 mmol/L (98-107); Glucose 56 mg/dL (74-99); Potassium 3.9 mmol/L (3.5-5.1); Sodium 140 mmol/L (137-145)
[2018-07-13 03:18] LABS: Amphetamine Screen,Urine Not Detected (NotDetected); Barbiturate Screen,Urine Not Detected (NotDetected); Benzodiazepines Screen,Urine Not Detected (NotDetected); Cocaine Screen,Urine Not Detected (NotDetected); Methadone Screen, Urine Not Detected (NotDetected); Opiate Screen,Urine Not Detected (NotDetected); Oxycodone Screen, Urine Not Detected (NotDetected); Phencyclidine Screen,Urine Not Detected (NotDetected); Tricyclic Antidepressant,Urine Not Detected (NotDetected); Urn Cannabinoid Scrn Not Detected (NotDetected)
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
[2018-07-13] MEDS ORDERED: HALOPERIDOL LACTATE 5 MG/ML 1 ML VIAL IM STA (18:10)
[2018-07-13] MEDS ORDERED: diphenhydrAMINE 50 MG/ML 1 ML VIAL IM STA (18:10)
[2018-07-13] MEDS ORDERED: LORazepam 2 MG/ML INJ IM STA (18:11)
[2018-07-14] MEDS ORDERED: MAG HYDROX/AL HYDROX/SIMETH 30 ML CUP PO PRN (12:13)
[2018-07-14] MEDS ORDERED: LORazepam 1 MG TAB PO PRN (12:13)
[2018-07-14] MEDS ORDERED: MAGNESIUM HYDROXIDE 2,400 MG/10 ML CUP PO PRN (12:13)
[2018-07-14] MEDS ORDERED: ZIPRASIDONE 20 MG VIAL IM PRN (12:13)
[2018-07-14] MEDS ORDERED: ACETAMINOPHEN TAB 325 MG TAB PO PRN (12:13)
--- NOTE | 2018-07-14 15:23 | P.HP ---
Psychiatric H&P - . H&P Date: 07/14/18 History & Physical: Allergies Allergy/AdvReac Type Severity Reaction Status Date / Time bee pollen Allergy Unknown Verified 07/12/18 22:06 ciprofloxacin [From Cipro] Allergy Unknown Verified 07/12/18 22:06 ciprofloxacin HCl Allergy Unknown Verified 07/12/18 22:06 [From Cipro] Vital Signs Temp 97.8 F 07/13/18 02:46 Pulse 70 07/14/18 12:05 Resp 16 07/14/18 12:05 BP 126/74 07/14/18 12:05 Pulse Ox 98 07/14/18 12:05 IDENTIFYING DATA: The patient is 28-year-old single female admitted to the psychiatric unit involuntarily. She is on a one year and a involuntary treatment order. HISTORY OF PRESENT ILLNESS: She was unable to explain the reason for this hospitalization. She alleged that she was outside playing with her daughter on the lawn and somebody "became concerned" and called the police. According to the EPS nurse the EMS brought her to the emergency room accompanied by police. The police received several complaints regarding the care of her 6-week-old daughter. The neighbors observed her baby holding the baby in a swing with the baby's neck supported and the baby naked and facedown on the grass while the patient was pouring water over the baby to "calm her down ". The neighbor also alleged to have seen the patient strangling the baby. She was also observed trying to feed the baby with a straw. She is enrolled with the ACT program under a one-year involuntary treatment order due to chronic problems with noncompliance with mental health treatment. The ACT team does not believe that she has been taking her psychiatric medication and she told the EPS nurse the last time she took the medication was "when I felt like I needed them." Her management in the ER required IM medications and one episode of restraint due to severity of her agitation. She denied feeling depressed, anxious or having thoughts of or suicide. She denied use of alcohol or drugs. She denied all psychotic symptoms including auditory, visual or olfactory hallucinations, ideas reference, thought insertion, thought broadcasting or thought control. PAST PSYCHIATRIC HISTORY: This is her third admission to this psychiatric unit. She had to 6 days apart and December 2017. Her first admission was 2017 through 12/10/17. She was readmitted on 12/16/2017. According to discharge summary she did not obtain her discharge prescription of olanzapine 5 mg 3 times a day and rapidly decompensated. According to the last admission history she has had 6 or 7 other psychiatric admissions. She has no known history of suicide attempts but history of self-injurious behaviors in the form cutting. She been treated with multiple other psychotropic medications include Abilify, Seroquel, Celexa and trazodone.. PAST MEDICAL HISTORY: She has no chronic medical illnesses ALLERGIES: Ciprofloxacin. SUBSTANCE USE HISTORY: She denied a history of alcohol or drug use. Urine drug screen was negative. His history of past use of alcohol and marijuana. FAMILY PSYCHIATRIC/SUBSTANCE USE HISTORY: Unknown. LEGAL HISTORY: She denied history of legal problems. SOCIAL HISTORY: She gave a disjointed answers to questions about her social history an upbringing. She graduated high school. She alleged that she lives alone in an apartment with her son and infant. While the record indicates that older child is in foster care. She is unemployed and receives supplemental income. MENTAL STATUS EXAM: She presented as a casually groomed 28-year-old female who was pleasant on approach. She made eye contact and appeared to attend to interview. She had no distinguishing features or prominent physical abnormalities. She had a blunted facial expression. She is alert and oriented to person, place and time. She showed psychomotor retardation but no abnormal movements. She had long delays and response to questions. Her speech was not spontaneous and had decreased rate and rhythm. She had no articulation difficulties. Her affect was blunted but stable and appropriate. She appeared confused or perplexed. She denied suicidal ideation or wishes. She denied homicidal ideation. She denied feelings of hopelessness, helplessness or worthlessness. She ruminated about the circumstances that led to this hospitalization. She did not express clear ideas reference paranoid ideation or delusions. Her thinking was not organized, coherent or goal directed. Her answers to questions were tangential. Although she denied hallucinations she appeared to be responding to internal stimuli. Global impression of intellect is average. She has limited understanding of her illness and need for mental health treatment. STRENGTHS: Good physical health, engagement with assertive mental health treatment. WEAKNESSES: Poor compliance with psychiatric medications, lack of insight or understanding of need for mental health treatment. IMPRESSION: She is a 28-year-old female who has a history of a schizophrenia. She is on a one-year probate order for involuntary mental health treatment due to history of poor compliance with mental health care. Her community treatment team report a gradual decline in her functioning. Neighbors called the police concerned about the appropriateness of her care of her 6-week-old . She has no insight or understanding of her illness or the reason for this psychiatric hospitalization. She denies all mental health symptoms but her thinking is not organized. She has difficulty comprehending simple questions and appears to be responding to internal stimuli. Her community mental health team suspects that she has not been compliant with oral medications. She should be treated inpatient basis with combination of multimodal therapy and antipsychotic medications. Consider transitioning to a long-acting injectable antipsychotic. PRINCIPLE DIAGNOSIS: Schizophrenia, poor compliance with psychotropic medications RECOMMENDATION: Admitted to the inpatient psychiatric unit. Consult medicine for initial physical exam and medical history. social service worker completed initial psychosocial assessment. Resume olanzapine 10 mg at bedtime and monitor for compliance. Lorazepam 1 mg 3 times a day when necessary for agitation or anxiety and Geodon 20 mg IM twice a day when necessary for agitation acute psychosis. Obtain medical records from [facility]. Encourage participation in therapeutic groups and activities. Evaluate clinical status and response to treatment daily basis. Laboratory Last Values WBC 6.1 k/uL (3.8-10.6) 07/13/18 02:41 RBC 3.93 m/uL (3.80-5.40) 07/13/18 02:41 Hgb 13.3 gm/dL (11.4-16.0) 07/13/18 02:41 Hct 38.9 % (34.0-46.0) 07/13/18 02:41 MCV 99.1 fL (80.0-100.0) 07/13/18 02:41 MCH 33.9 pg (25.0-35.0) 07/13/18 02:41 MCHC 34.2 g/dL (31.0-37.0) 07/13/18 02:41 RDW 12.5 % (11.5-15.5) 07/13/18 02:41 Plt Count 273 k/uL (150-450) 07/13/18 02:41 Neutrophils % 41 % 07/13/18 02:41 Lymphocytes % 46 % 07/13/18 02:41 Monocytes % 5 % 07/13/18 02:41 Eosinophils % 3 % 07/13/18 02:41 Basophils % 1 % 07/13/18 02:41 Neutrophils # 2.5 k/uL (1.3-7.7) 07/13/18 02:41 Lymphocytes # 2.8 k/uL (1.0-4.8) 07/13/18 02:41 Monocytes # 0.3 k/uL (0-1.0) 07/13/18 02:41 Eosinophils # 0.2 k/uL (0-0.7) 07/13/18 02:41 Basophils # 0.1 k/uL (0-0.2) 07/13/18 02:41 Sodium 140 mmol/L (137-145) 07/13/18 02:41 Potassium 3.9 mmol/L (3.5-5.1) 07/13/18 02:41 Chloride 107 mmol/L (98-107) 07/13/18 02:41 Carbon Dioxide 16 mmol/L (22-30) L 07/13/18 02:41 Anion Gap 17 mmol/L 07/13/18 02:41 BUN 9 mg/dL (7-17) 07/13/18 02:41 Creatinine 0.70 mg/dL (0.52-1.04) 07/13/18 02:41 Est GFR (CKD-EPI)AfAm >90 (>60 ml/min/1.73 sqM) 07/13/18 02:41 Est GFR (CKD-EPI)NonAf >90 (>60 ml/min/1.73 sqM) 07/13/18 02:41 Glucose 56 mg/dL (74-99) L 07/13/18 02:41 Calcium 9.3 mg/dL (8.4-10.2) 07/13/18 02:41 Urine HCG, Qual Not Detected (Not Detectd) 07/12/18 21:53 Urine Opiates Screen Not Detected (NotDetected) 07/12/18 21:53 Ur Oxycodone Screen Not Detected (NotDetected) 07/12/18 21:53 Urine Methadone Screen Not Detected (NotDetected) 07/12/18 21:53 Ur Propoxyphene Screen Not Detected (NotDetected) 07/12/18 21:53 Ur Barbiturates Screen Not Detected (NotDetected) 07/12/18 21:53 U Tricyclic Antidepress Not Detected (NotDetected) 07/12/18 21:53 Ur Phencyclidine Scrn Not Detected (NotDetected) 07/12/18 21:53 Ur Amphetamines Screen Not Detected (NotDetected) 07/12/18 21:53 U Methamphetamines Scrn Not Detected (NotDetected) 07/12/18 21:53 U Benzodiazepines Scrn Not Detected (NotDetected) 07/12/18 21:53 Urine Cocaine Screen Not Detected (NotDetected) 07/12/18 21:53 U Marijuana (THC) Screen Not Detected (NotDetected) 07/12/18 21:53 07/14/18 15:00
[2018-07-14] MEDS: OLANZapine 10 MG TAB PO SCH (20:20)
[2018-07-15 13:33] LABS: Hemoglobin A1C 5.3 % (4.0-6.0)
--- NOTE | 2018-07-15 14:16 | P.MDCNMH ---
History of Present Illness H&P Date: 07/15/18 Chief Complaint: Acute psychosis Patient is a [age] female with a known history of asthma, schizophrenia noncompliance with medications and currently everyday smoker was brought to the hospital by ambulance for psychiatric evaluation.Police had been called to investigate possible child endangerment. It was reported that they found Mrs. Marquez engaged and possible dangerous behavior for the child. It was reported that the child had been placed in a swing that was age inappropriate, and that the child's head was not supported and was lolling forward and backward with the swinging. The child had also been placed facedown on the grass and Ms. Marquez was pouring water on the child's back. The baby is one month and 16 days of age. Ms. Marquez denies any intent to harm the child. Patient says that she's been wrongly diagnosed with schizophrenia. Patient has not been taking her medications at all. Otherwise denied any chest pain or shortness of breath. No nausea vomiting or abdominal pain. No headache or dizziness or lightheadedness. No dysuria or hematuria. No other active issues otherwise. Patient continues smoking everyday. Review of Systems Constitutional: Patient denies any fever or chills . No generalized weakness or weight loss. Abdomen: Patient denied nausea vomiting and diarrhea and abdominal pain. Cardiovascular: Patient denies any chest pain or short of breath no palpitations. Respiratory: patient denied any cough is from production. No shortness of breath Neurologic: Patient denied any numbness or tingling headache. Musculoskeletal: Patient denies any complaints of joint swelling or deformity. Skin: Negative Psychiatric: Denied suicidal ideation Endocrine: No heat or cold intolerance. No recent weight gain. Genitourinary: No dysuria or hematuria. All other 14 point ROS negative except the above Past Medical History Past Medical History: Asthma History of Any Multi-Drug Resistant Organisms: None Reported Past Surgical History: No Surgical Hx Reported Additional Past Surgical History / Comment(s): Myringotomy with tube placement Smoking Status: Current every day smoker - Past Family History Father Family Medical History: Hypertension Medications and Allergies Home Medications Medication Instructions Recorded Confirmed Type OLANZapine [ZyPREXA] 10 mg PO HS 07/12/18 07/12/18 History Allergies Allergy/AdvReac Type Severity Reaction Status Date / Time bee pollen Allergy Unknown Verified 07/12/18 22:06 ciprofloxacin [From Cipro] Allergy Unknown Verified 07/12/18 22:06 ciprofloxacin HCl Allergy Unknown [facility]12[facility]18 [facility] Physical Exam Vitals: Vital Signs Temp Pulse Resp BP Pulse Ox 07/15/18 07:20 97.6 F 72 18 102/53 98 PHYSICAL EXAMINATION: Patient is lying in the bed comfortably, no acute distress, awake alert and oriented.. HEENT: Normocephalic. Neck is supple. Pupils reactive. Nostrils clear. Oral cavity is moist. Ears reveal no drainage. Neck reveals no JVD, carotid bruits, or thyromegaly. CHEST EXAMINATION: Trachea is central. Symmetrical expansion. Lung mcgee clear to auscultation and percussion. CARDIAC: Normal S1, S2 with no gallops. No murmurs ABDOMEN: Soft. Bowel sounds normal. No organomegaly. No abdominal bruits. Extremities: reveal no edema. No clubbing or cyanosis Neurologically awake, alert, oriented x3 with well-coordinated movements. No focal deficits noted Skin: No rash or skin lesions. Psychiatric: Coperative. Blunt affect Musculoskeletal: No joint swelling or deformity. Normal range of motion. Cranial Nerve Examination - Cranial Nerves Cranial Nerve I- Olfactory: Intact Cranial Nerve II- Optic: Intact Cranial Nerve III- Oculomotor: Intact Cranial Nerve IV- Trochlear: Intact Cranial Nerve V- Trigeminal: Intact Cranial Nerve - Abducens: Intact Cranial Nerve VII- Facial: Intact Cranial Nerve VIII- Auditory: Intact Cranial Nerve IX- Glossopharyngeal: Intact Cranial Nerve X- Vagus: Intact Cranial Nerve XI- Accessory: Intact Cranial Nerve XII- Hypoglossal: Intact Results CBC & Chem 7: 07/13/18 02:41 07/13/18 02:41 Assessment and Plan Assessment: Acute psychosis with non-compliance with medications use Asthma stable. Currently everyday smoker. Smoking cessation has been counseled extensively DVT prophylaxis with early ambulation Plan: Patient will be continued on current psychiatric medications. Albuterol inhalation 2 puffs every 6 when necessary for shortness of breath. We will continue to follow closely and further recommendations based on the clinical course. Thank you for your consult Past Medical History: Asthma History of Any Multi-Drug Resistant Organisms: None Reported Past Surgical History: No Surgical Hx Reported Additional Past Surgical History / Comment(s): Myringotomy with tube placement Smoking Status: Current every day smoker - Past Family History Father Family Medical History: Hypertension Medications and Allergies Time with Patient: Greater than 30
--- NOTE | 2018-07-15 15:39 | P.PN ---
Progress Note - Text Progress Note Date: 07/15/18 Clinical Problems: Schizophrenia, poor compliance with psychotropic medications Interim history: I reviewed the medical record, interviewed the patient and discussed her treatment and treatment plan during team meeting. Medical consultation appreciated. Her only concern was discharge. She stated that she is "feeling much better" and wishes to return home. She clarified that her 2 children are in foster care and she expects to have the children return to her when she is discharged from the hospital. She denied such psychotic symptoms such as auditory, visual or olfactory hallucinations, ideas of reference, thought insertion etc. She denied feeling depressed or having thoughts of or suicide. She denied subjective and somatic symptoms of anxiety. She has been compliant with olanzapine 10 mg at bedtime. Mental status exam: She presented as a casually groomed 28-year-old female who was pleasant on approach. She made eye contact and attended the interview. She had a blunted but bright facial expression. She showed slight psychomotor retardation but no abnormal movements. Her speech was spontaneous with normal rate and rhythm. She had difficulty concentrating and attending to the interview. Her affect was blunted but bright, stable and appropriate. She denied suicidal ideations, wishes or homicidal ideation. She denied such depressive cognitions as hopelessness, helplessness or worthlessness. She did not express ideas reference, paranoid ideation or delusional beliefs. Her thinking was concrete and Associates at times not appeared logical coherent. She denied hallucinations but at times appeared to be responding to internal stimuli. Assessment: She is chronically and severely mentally ill and appears much improved from admission. Plan: Continue inpatient hospitalization. Continue safety precautions. Continue olanzapine 10 mg at bedtime. Coordinate discharge and aftercare with the ACT team. Encourage continued participation in therapeutic groups and activities. Evaluate clinical status response to treatment daily basis.
[2018-07-15] MEDS: OLANZapine 10 MG TAB PO SCH (20:16)
--- NOTE | 2018-07-16 14:31 | P.PN ---
Progress Note - Text Progress Note Date: 07/16/18 Interval history: Patient seen in [facility] today. She does not voice any adverse side effects with the Zyprexa. Says she slept approximately 8 hours last night. Her appetite seems to be doing well. Mental status exam: She is alert and cooperative with the interview. Her answers are pretty brief. She does show some range of affect. She seems to describe her mood is doing well. She denies any thoughts of harm to self or others. She does not verbalize any tc delusions. She denies any hallucinations. She does not show any agitation. Plan: We'll maintain current psychotropic medication regimen. Continue to monitor for any psychotropic medication side effects and monitor her ongoing her ongoing response to treatment. We'll continue to cover this patient through the weekend.
[2018-07-16] MEDS: OLANZapine 10 MG TAB PO SCH (20:26)
--- NOTE | 2018-07-17 11:43 | P.PN ---
Progress Note - Text Progress Note Date: 07/17/18 Interval history: Patient is seen in cross coverage today. She says she slept the whole night. She does not voice any adverse psychotropic medication side effects. She has not been needing to take the Ativan. She seems to be eating fine. Mental status exam: She is alert and cooperative with the interview. Her affect does show range. Her mood seems to be doing well. She denies any thoughts of harm to self or others. She does not verbalize any hallucinations or tc delusional thoughts. She does not show any agitation. Plan: Patient will be maintained on current psychotropic medication regimen. Continue to monitor for any medication side effects monitor her ongoing response to treatment
[2018-07-17] MEDS: OLANZapine 10 MG TAB PO SCH (21:15)
--- NOTE | 2018-07-18 15:42 | P.PN ---
Progress Note - Text Progress Note Date: 07/18/18 Clinical Problems: Schizophrenia, poor compliance with psychotropic medications. Interim history: I reviewed the medical record, interviewed the patient and discussed her treatment and treatment plan during team meeting. She was without complaint and only concern was discharge. She denied side effects to olanzapine. She denied that she had been noncompliant with the medication. She continues to maintain that this admission was a result of a misunderstanding. She appeared unconcerned about the status of her 2 children. She is unaware whether she will lose parental rights of the infant. She maintained that "all is good" with regard to the children. She alleges that she becomes "too anxious" in the group setting and therefore avoids therapeutic groups and activities. Mental status exam: She presented as neatly dressed and casually groomed young female who is moderately obese. She made eye contact and attended to the interview. She was superficially pleasant and cooperative. She was guarded and suspicious and often question the purpose of our interview. She denied all symptoms and denied the need for continued hospitalization. Her speech was spontaneous with normal rate and rhythm. She had no articulation difficulties. She was anxious. She denied suicidal ideation or wishes. She denied feeling hopeless, helpless or worthless. She did not express clear ideas reference, paranoid ideation or delusions. Her thinking was concrete. Associations were not fully coherent, logical goal-directed. She did not appear to be responding to internal stimuli. She has limited insight or understanding of her illness and need for treatment. Assessment: She is compliant with prescribed medications and denies all psychiatric symptoms. However she is guarded, suspicious and anxious. She has no insight or understanding of her mental illness. Plan: Continue inpatient hospitalization. Continue safety precautions. Continue Zyprexa 10 mg daily. graphic pre press trades worker to call coordinate discharge and aftercare. She will follow up with the ACT team after discharge. Encourage participation as tolerated with therapeutic groups and activities. Evaluate clinical status response to treatment daily basis.
[2018-07-18] MEDS: OLANZapine 10 MG TAB PO SCH (20:43)
--- NOTE | 2018-07-19 14:33 | P.PN ---
Progress Note - Text Progress Note Date: 07/19/18 Clinical Problems: Schizophrenia, poor compliance with mental health treatment Interim history: I reviewed the medical record, interviewed the patient and discussed her treatment and treatment plan during team meeting. She denied problems or concerns other than discharge. She denied side effects to the current dose of olanzapine. She denied experiencing psychotic symptoms such as hallucinations, ideas reference, thought insertion etc. She did not appear as guarded and suspicious as she did during prior interviews. I asked about her daughter because nursing staff informed the treatment team that the has been admitted to [facility] for evaluation of a brain bleed. Kristin stated that her daughter was referred to the hospital for "additional tests" and "all is well." She alleged that her daughter was an injured and the medical evaluations proved that she had not been injured. However, she is unaware of her daughter's current whereabouts. Mental status exam: She presented as a casually dressed and groomed young female who was pleasant on approach. She made eye contact and appeared to attend to the interview. She had a bright facial expression. She showed slight psychomotor retardation but no abnormal movements. Her speech was spontaneous with normal rate and rhythm. She demonstrated poverty of content speech. Her affect was blunted but stable and appropriate. She denied suicidal ideation, wishes or homicidal ideation. She denied feeling hopeless, helpless or worthless. She expressed no phobias, ideas reference, paranoid ideation or clear to occasional thoughts. Her thinking was concrete but her associations appeared coherent. He did not demonstrate perseverations or neologisms. She appeared to have some thought blocking. She denied hallucinations and did not appear to be responding to internal stimuli. Assessment: Overall she appears moderately mentally ill and markedly improve from admission. He questioned whether she may face charges of child abuse for child endangerment. Plan: Continue inpatient hospitalization. Continue safety precautions. Continue olanzapine 10 mg daily. Consider an alternate antipsychotic medication that is available is a long acting injectable. farrowing worker to coordinate discharge and aftercare services. Encouraged continued participation in therapeutic groups and activities tolerated. Evaluate clinical status response to treatment daily basis.
[2018-07-19] MEDS: OLANZapine 10 MG TAB PO SCH (20:44)
--- NOTE | 2018-07-20 12:10 | P.PN ---
Progress Note - Text Progress Note Date: 07/20/18 Interim history: I reviewed the medical record, interviewed the patient and discussed her treatment and treatment plan during team meeting. She denied problems or concerns other than discharge. She denied side effects to the current dose of olanzapine. She denied experiencing psychotic symptoms such as hallucinations, ideas reference, thought insertion etc. She did not appear as guarded and suspicious as she did during prior interviews. I asked about her daughter because nursing staff informed the treatment team that the has been admitted to [facility] for evaluation of a brain bleed. Kristin stated that her daughter was referred to the hospital for "additional tests" and "all is well." She alleged that her daughter was an injured and the medical evaluations proved that she had not been injured. However, she is unaware of her daughter's current whereabouts. Mental status exam: She presented as a casually dressed and groomed young female who was pleasant on approach. She made eye contact and appeared to attend to the interview. She had a bright facial expression. She showed slight psychomotor retardation but no abnormal movements. Her speech was spontaneous with normal rate and rhythm. She demonstrated poverty of content speech. Her affect was blunted but stable and appropriate. She denied suicidal ideation, wishes or homicidal ideation. She denied feeling hopeless, helpless or worthless. She expressed no phobias, ideas reference, paranoid ideation or clear to occasional thoughts. Her thinking was concrete but her associations appeared coherent. He did not demonstrate perseverations or neologisms. She appeared to have some thought blocking. She denied hallucinations and did not appear to be responding to internal stimuli. Assessment: Overall she appears moderately mentally ill and markedly improve from admission. He questioned whether she may face charges of child abuse for child endangerment. Plan: Continue inpatient hospitalization. Continue safety precautions. [facility] wants the patient on prolixin and deconate before she is discharged. Consider an alternate antipsychotic medication that is available is a long acting injectable. day care worker to coordinate discharge and aftercare services. Encouraged continued participation in therapeutic groups and activities tolerated. Evaluate clinical status response to treatment daily basis. RECOMMENDATION: Admitted to the inpatient psychiatric unit. day care worker completed initial psychosocial assessment. [facility] wants to stop olanzapine 10 mg at bedtime and change to 2 mg po prolixin and monitor for compliance. Lorazepam 1 mg 3 times a day when necessary for agitation or anxiety and Geodon 20 mg IM twice a day when necessary for agitation acute psychosis. Encourage participation in therapeutic groups and activities. Evaluate clinical status and response to treatment daily basis.
--- NOTE | 2018-07-21 10:40 | P.PN ---
Progress Note - Text Progress Note Date: 07/21/18 Progress Note - Text Progress Note Date: 07/21/18 Interim history: I reviewed the medical record, interviewed the patient and discussed her treatment and treatment plan during team meeting. She denied problems or concerns other than discharge. She denied experiencing psychotic symptoms such as hallucinations, ideas reference, thought insertion etc. She did not appear as guarded and suspicious as she did during prior interviews.Highly guarded. I asked about her infant daughter because nursing staff informed the treatment team that the infant has been admitted to [facility] for evaluation of a brain bleed. Kristin stated that her daughter was referred to the hospital for "additional tests" and "all is well." She alleged that her daughter was an injured and the medical evaluations proved that she had not been injured. However, she is aware of her daughter's current whereabouts. Mental status exam: She presented as a casually dressed and groomed young female who was pleasant on approach. She made eye contact and appeared to attend to the interview. She had a bright facial expression. She showed slight psychomotor retardation but no abnormal movements. Her speech was spontaneous with normal rate and rhythm. She demonstrated poverty of content speech. Her affect was blunted but stable and appropriate. She denied suicidal ideation, wishes or homicidal ideation. She denied feeling hopeless, helpless or worthless. She expressed no phobias, ideas reference, paranoid ideation or clear to occasional thoughts. Her thinking was concrete but her associations appeared coherent. He did not demonstrate perseverations or neologisms. She appeared to have some thought blocking. She denied hallucinations and did not appear to be responding to internal stimuli. Assessment: Overall she appears moderately mentally ill and markedly improve from admission. He questioned whether she may face charges of child abuse for child endangerment. Plan: Continue inpatient hospitalization. Continue safety precautions. [facility] wants the patient on prolixin and deconate before she is discharged. Consider an alternate antipsychotic medication that is available is a long acting injectable. aircraft layout worker to coordinate discharge and aftercare services. Encouraged continued participation in therapeutic groups and activities tolerated. Evaluate clinical status response to treatment daily basis. RECOMMENDATION: Admitted to the inpatient psychiatric unit. aircraft layout worker completed initial psychosocial assessment. [facility] wants to stop olanzapine 10 mg at bedtime and change to 4 mg po prolixin and monitor for compliance. Lorazepam 1 mg 3 times a day when necessary for agitation or anxiety and Geodon 20 mg IM twice a day when necessary for agitation acute psychosis. Encourage participation in therapeutic groups and activities. Evaluate clinical status and response to treatment daily basis. Possible discharge Wednesday. Encouraged to go social work group, recreational group and interacting with nursing staff. Plan is to one more day increase of Prolixin and will start Prolixin Decanoate. She tolerates this well on Wednesday she will be discharged on Wednesday morning.
--- NOTE | 2018-07-22 12:13 | P.PN ---
Progress Note - Text Progress Note Date: 07/22/18 Interim history: I reviewed the medical record, interviewed the patient and discussed her treatment and treatment plan during team meeting. She denied experiencing psychotic symptoms such as hallucinations, ideas reference, thought insertion etc. She did not appear as guarded and suspicious as she did during prior interviews.Highly guarded. I asked about her daughter because nursing staff informed the treatment team that the has been admitted to [facility] for evaluation of a brain bleed. Kristin stated that her daughter was referred to the hospital for "additional tests" and "all is well." She alleged that her daughter was an injured and the medical evaluations proved that she had not been injured. However, she is aware of her daughter's current whereabouts. Mental status exam: She presented as a casually dressed and groomed young female who was pleasant on approach. She made eye contact and appeared to attend to the interview. She had a bright facial expression. She showed slight psychomotor retardation but no abnormal movements. Her speech was spontaneous with normal rate and rhythm. She demonstrated poverty of content speech. Her affect was blunted but stable and appropriate. She denied suicidal ideation, wishes or homicidal ideation. She denied feeling hopeless, helpless or worthless. She expressed no phobias, ideas reference, paranoid ideation or clear to occasional thoughts. Her thinking was concrete but her associations appeared coherent. He did not demonstrate perseverations or neologisms. She appeared to have some thought blocking. She denied hallucinations and did not appear to be responding to internal stimuli. Assessment: schizoaffective disorder Plan: Continue inpatient hospitalization. Continue safety precautions. [facility] wants the patient on prolixin and deconate before she is discharged. Consider an alternate antipsychotic medication that is available is a long acting injectable. acid conditioning worker to coordinate discharge and aftercare services. Encouraged continued participation in therapeutic groups and activities tolerated. Evaluate clinical status response to treatment daily basis. RECOMMENDATION: Admitted to the inpatient psychiatric unit. [facility] wants to stop olanzapine 10 mg at bedtime and change to 5 mg po prolixin and monitor for compliance. Lorazepam 1 mg 3 times a day when necessary for agitation or anxiety and Geodon 20 mg IM twice a day when necessary for agitation acute psychosis. Encourage participation in therapeutic groups and activities. Evaluate clinical status and response to treatment daily basis. Possible discharge Wednesday. Encouraged to go social work group, recreational group and interacting with nursing staff. Plan is to one more day increase of Prolixin and will start Prolixin Decanoate. She tolerates this well on Wednesday and Wednesday with prolixin 12.5 mg deconate she will be discharged on Wednesday morning if there no side effects face to face 20 minutes
--- NOTE | 2018-07-23 19:40 | PN ---
PROGRESS NOTE The patient is seen, interviewed in detail. The patient gave a detailed account of how she ended up here. She reports she was petitioned here by police and she said she was doing nothing wrong. She was out wandering with her baby. She said she is concerned about her well-being and she denies hearing voices, seeing things. She reports that she has been off her medication, which were prescribed by Dr. Allen and she was getting a little confused, but denies having any auditory or visual hallucinations. She reports that she has been diagnosed with schizoaffective disorder. Lately, her mood has been better. She is back on medications. Denies any side effects from the medications. Did sleep good last night. Behavior well controlled. MENTAL STATUS EXAM: Patient alert and oriented x4. Has fair eye contact. Speech few word sentences. Mood euthymic. Flat affect. Denies suicidal or homicidal ideation. No symptoms of psychosis seen other than some thought blocking. Attention was somewhat poor. Insight and judgment improving slowly and gradually. ASSESSMENT: Schizoaffective disorder, depressed type. PLAN: Continue to adjust medications accordingly. Encouraged to attend groups and meetings. Support therapy provided. MMNELIL / MICHELL: [id number] /
[2018-07-24] MEDS ORDERED: fluPHENAZine DECANOATE 25 MG/ML 5ML MDV IM ONE (09:00)
--- NOTE | 2018-07-24 13:17 | PN ---
PROGRESS NOTE The patient is seen, interviewed. She reports she is doing a lot better. She did receive Prolixin intramuscular shot today. It did not hurt. She said she wants to stay on the shot so that she should stay stable on her medication. She denies hearing voices, seeing things. She is concerned about her children. Behavior well controlled. Going to groups and meetings. MENTAL STATUS EXAMINATION: Patient is alert, oriented x4. Has fair eye contact. Speech few word sentences. Mood euthymic with flat affect. Denies suicidal ideation. I did not see her responding to internal stimuli. No paranoid delusions. Insight, judgment improving slowly and gradually. ASSESSMENT: Schizoaffective disorder, depressed type. PLAN: Continue to adjust medications accordingly. Encouraged to attend groups and meetings. Possible discharge home in couple of days. MMODL / IJN: [id number] /
--- NOTE | 2018-07-25 11:43 | P.PN ---
Progress Note - Text Progress Note Date: 07/25/18 Interim history: I reviewed the medical record, interviewed the patient and discussed her treatment and treatment plan during team meeting. She denied experiencing psychotic symptoms such as hallucinations, ideas reference, thought insertion etc. She did not appear as guarded and suspicious as she did during prior interviews.Highly guarded. I asked about her daughter because nursing staff informed the treatment team that the has been admitted to [facility] for evaluation of a brain bleed. However, she is not aware of her daughter's current whereabouts. Mental status exam: She presented as a casually dressed and groomed young female who was pleasant on approach. She made eye contact and appeared to attend to the interview. She had a bright facial expression. She showed slight psychomotor retardation but no abnormal movements. Her speech was spontaneous with normal rate and rhythm. She demonstrated poverty of content speech. Her affect was blunted but stable and appropriate. She denied suicidal ideation, wishes or homicidal ideation. She denied feeling hopeless, helpless or worthless. She expressed no phobias, ideas reference, paranoid ideation or clear to occasional thoughts. Her thinking was concrete but her associations appeared coherent. He did not demonstrate perseverations or neologisms. She appeared to have some thought blocking. She denied hallucinations and did not appear to be responding to internal stimuli. Assessment: schizoaffective disorder, mild Plan: Continue inpatient hospitalization. Continue safety precautions. [facility] wants the patient on prolixin and deconate before she is discharged. Consider an alternate antipsychotic medication that is available is a long acting injectable. hot mill worker to coordinate discharge and aftercare services. Encouraged continued participation in therapeutic groups and activities tolerated. Evaluate clinical status response to treatment daily basis. RECOMMENDATION: Admitted to the inpatient psychiatric unit. [facility] wants to stop olanzapine 10 mg at bedtime and change to 5 mg po prolixin and monitor for compliance which has been completed today. Lorazepam 1 mg 3 times a day when necessary for agitation or anxiety and Geodon 20 mg IM twice a day when necessary for agitation acute psychosis. Encourage participation in therapeutic groups and activities. Evaluate clinical status and response to treatment daily basis. Possible discharge Wednesday. Encouraged to go social work group, recreational group and interacting with nursing staff. Plan is to one more day increase of Prolixin and will start Prolixin Decanoate. She tolerates this well on Wednesday and Wednesday with prolixin 12.5 mg deconate she will be discharged on Wednesday morning if there no side effects. So far at 11:40 am. face to face 20 minutes
--- NOTE | 2018-07-25 15:06 | P.DS ---
Providers Date of admission: 07/14/18 11:48 Expected date of discharge: 07/25/18 Attending physician: Kevin Askew DO Consults: 07/14/18 12:13 Consult Physician Routine Consulting Provider: Keily Powers Consult Reason/Comments: History and physical Do you want consulting provider notified?: Yes Primary care physician: Ken Howe Charbal - Discharge Diagnosis(es) (1) Acute psychosis Current Visit: Yes Status: Acute Priority: Low (2) Manic episode Current Visit: Yes Status: Acute Priority: Low Hospital Course: IDENTIFYING DATA: The patient is 28-year-old single female admitted to the psychiatric unit involuntarily. She is on a one year and a involuntary treatment order. HISTORY OF PRESENT ILLNESS: She was unable to explain the reason for this hospitalization. She alleged that she was outside playing with her daughter on the lawn and somebody "became concerned" and called the police. She was taken off her previous medication placed on Prolixin titrated to an injectable 12.5 mg injection on 07/25/2018. She has a typical schizotypal affect were distant interactions with other patients on the unit. She was evaluated her hospitalization including initial psychiatric and interaction with mental health worker clue that we have appropriate medications would be helpful to her. Evaluation was done by internal medicine and no acute medical concerns were seen. Evaluation of CBC CMP and urine. Drug screen without abnormalities. She appears to be at baseline and functioning and stable. Risk factor is what happened her child and she has not communicated with her mother regarding. There may be other consequences waiting for when she is discharged Mental status exam: She presented as a casually dressed and groomed young female who was pleasant on approach. She made eye contact and appeared to attend to the interview. She had a bright facial expression. She showed slight psychomotor retardation but no abnormal movements. Her speech was spontaneous with normal rate and rhythm. She demonstrated poverty of content speech. Her affect was blunted but stable and appropriate. She denied suicidal ideation, wishes or homicidal ideation. She denied feeling hopeless, helpless or worthless. She expressed no phobias, ideas reference, paranoid ideation or clear to occasional thoughts. Her thinking was concrete but her associations appeared coherent. He did not demonstrate perseverations or neologisms. She appeared to have some thought blocking. She denied hallucinations and did not appear to be responding to internal stimuli. Assessment: schizoaffective disorder, mild Plan: Discharge hospitalization. [facility] wants the patient on prolixin and deconate before she is discharged. car worker helper to coordinate discharge and aftercare services. Encouraged continued participation in therapeutic groups and activities tolerated. RECOMMENDATION: Admitted to the inpatient psychiatric unit. [facility] wants to stop olanzapine 10 mg at bedtime and change to 5 mg po prolixin and monitor for compliance which has been completed today. Encourage participation in therapeutic groups and activities. Evaluate clinical status and response to treatment daily basis. Possible discharge Wednesday. Encouraged to go social work group, recreational group and interacting with nursing staff. Plan is to one more day increase of Prolixin and will start Prolixin Decanoate. She tolerates this well on Wednesday and Wednesday with prolixin 12.5 mg deconate she will be discharged on 07/25/2018. She was given Prolixin 12.5 mg decanoate this morning she's had no abnormal adverse reactions to it will be discharged to [facility] a prescription for Prolixin until she gets into [facility]. Patient Condition at Discharge: Stable Plan - Discharge Summary Discharge Rx Participant: No New Discharge Prescriptions: New fluPHENAZine [Prolixin] 5 mg PO HS tab Discontinued OLANZapine [ZyPREXA] 10 mg PO HS Discharge Medication List fluPHENAZine [Prolixin] 5 mg PO HS tab 07/25/18 [Rx] Follow up Appointment(s)/Referral(s): Rosemarie Rogers MD [Primary Care Provider] - 1-2 days Discharge Disposition: HOME SELF-CARE
[2018-07-26 06:43] VITALS: BP 100/59; PULSE 55; RESP 20; TEMP 97.9
[2018-07-26] MEDS ORDERED: fluPHENAZine DECANOATE 25 MG/ML 5ML MDV IM ONE (14:37)
== END 2018-07-26 15:06 | disposition home or self-care (01) | DRG 885 ==
LOC: EC 21:04 → 3MHU 07-14 11:48
PROVIDERS: ADMIT Psychiatry & Neurology Psychiatry; ATTEND Psychiatry & Neurology Psychiatry
DX: F25.1 Schizoaffective disorder, depressive type (principal); F17.200 Nicotine dependence, unspecified, uncomplicated; Z82.49 Family history of ischemic heart disease and other diseases of the circulatory system; Z91.19 Patient's noncompliance with other medical treatment and regimen; Z88.1 Allergy status to other antibiotic agents; Z91.030 Bee allergy status; Z78.1 Physical restraint status
CPT/HCPCS: 36415; 80048; 80061; 80306; 81025; 82075; 83036; 84443; 85025; 96372; 99285

== ENCOUNTER 2020-01-17 15:21 | Inpatient (IN) | payer MEDICARE, MEDICAID ==
--- NOTE | 2020-01-17 16:15 | ED ---
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 please excuse any grammatical, word or spelling errors. Chief Complaint: 29-year-old female brought in by [facility] for petition. History of Present Illness: He-year-old female she was brought in by [facility] for petition. Patient denies any suicidal or homicidal thoughts. Patient reports that she is paranoid. She is a limited historian. He has any pain complaints. No shortness of breath. She does not know why she is here today. The ROS documented in this emergency department record has been reviewed and confirmed by me. Those systems with pertinent positive or negative responses have been documented in the HPI. All other systems are other negative and/or noncontributory. PHYSICAL EXAM: General Impression: Alert and oriented x3, not in acute distress HEENT: Normocephalic atraumatic, extra-ocular movements intact, pupils equal and reactive to light bilaterally, mucous membranes moist. Cardiovascular: Heart regular rate and rhythm, S1&S2 audible, no murmurs, rubs or gallops Chest: Bilateral breath sounds Musculoskeletal: no peripheral edema Motor: no focal deficits noted Neurological: CN II-XII grossly intact, no focal motor or sensory deficits noted Skin: Intact with no visualized rashes Psych: Tangential speech ED course: 29 yo Female presents with petition by [facility]. As upon arrival are within acceptable limits. Patient is psychiatric history denies. Admitted to psychiatric. Patient has a history of schizophrenia. Patient has no medical complaints. Patient clear for EPS evaluation.Patient has positive test. Patient given vitamins. Patient will be admitted to inpatient psychiatry. Patient allegedly knows about her . She is uncooperative, and when asked she says "it's none of your business." - Related Data Previous Rx's Medication Instructions Recorded fluPHENAZine DECANOATE [Prolixin 12.5 mg IM ONCE 1 Days #1 ml 07/26/18 Decanoate] fluPHENAZine [Prolixin 5MG] 5 mg PO DAILY 30 Days #30 tablet 07/26/18 Allergies Allergy/AdvReac Type Severity Reaction Status Date / Time bee pollen Allergy Unknown Verified 01/17/20 15:33 ciprofloxacin [From Cipro] Allergy Unknown Verified 01/17/20 15:33 ciprofloxacin HCl Allergy Unknown Verified 01/17/20 15:33 [From Cipro] Review of Systems ROS Statement: Those systems with pertinent positive or pertinent negative responses have been documented in the HPI. ROS Other: All systems not noted in ROS Statement are negative. Past Medical History Past Medical History: No Reported History History of Any Multi-Drug Resistant Organisms: None Reported Past Surgical History: No Surgical Hx Reported Additional Past Surgical History / Comment(s): Myringotomy with tube placement Past Psychological History: ADD/ADHD, Anxiety, Depression, Schizoaffective Disorder Smoking Status: Current every day smoker Past Alcohol Use History: Occasional Past Drug Use History: None Reported - Past Family History Father Family Medical History: Hypertension General Exam Limitations: no limitations Course Vital Signs 01/17/20 15:30 Temperature 98.6 F Pulse Rate 89 Respiratory 18 Rate Blood Pressure 115/81 O2 Sat by Pulse 98 Oximetry Medical Decision Making - Lab Data Lab Results 01/17/20 01/17/20 Range/Units 18:11 18:11 Urine HCG, Qual Detected (Not Detectd) Urine Opiates Screen Not Detected (NotDetected) Ur Oxycodone Screen Not Detected (NotDetected) Urine Methadone Screen Not Detected (NotDetected) Ur Propoxyphene Screen Not Detected (NotDetected) Ur Barbiturates Screen Not Detected (NotDetected) U Tricyclic Antidepress Not Detected (NotDetected) Ur Phencyclidine Scrn Not Detected (NotDetected) Ur Amphetamines Screen Not Detected (NotDetected) U Methamphetamines Scrn Not Detected (NotDetected) U Benzodiazepines Scrn Not Detected (NotDetected) Urine Cocaine Screen Not Detected (NotDetected) U Marijuana (THC) Screen Not Detected (NotDetected) Disposition Clinical Impression: Psychosis, Disposition: ADMITTED IP TO THIS HOSP Decision Time: 20:46
[2020-01-17 18:56] LABS: Amphetamine Screen,Urine Not Detected (NotDetected); Barbiturate Screen,Urine Not Detected (NotDetected); Benzodiazepines Screen,Urine Not Detected (NotDetected); Cocaine Screen,Urine Not Detected (NotDetected); Methadone Screen, Urine Not Detected (NotDetected); Opiate Screen,Urine Not Detected (NotDetected); Oxycodone Screen, Urine Not Detected (NotDetected); Phencyclidine Screen,Urine Not Detected (NotDetected); Tricyclic Antidepressant,Urine Not Detected (NotDetected); Urn Cannabinoid Scrn Not Detected (NotDetected)
[2020-01-17] MEDS ORDERED: PRENATAL VIT-IRON-FOLIC ACID 1 EACH CAP PO STA (19:23)
[2020-01-17] MEDS ORDERED: ZIPRASIDONE 20 MG VIAL IM PRN (20:35)
[2020-01-17 20:57] LABS: Appearance,Urine Cloudy (Clear); Bacteria,Urine Occasional /hpf; Bilirubin,Urine Negative (Negative); Blood,Urine Negative (Negative); Color,Urine Yellow; Glucose,Urine (UA) Negative (Negative); Ketones,Urine 2+ (Negative); Leukocyte Esterase,Urine Large (Negative); Mucus,Urine Rare /hpf; Nitrite,Urine Negative (Negative); PH, Urine 5.5 (5.0-8.0); Protein,Urine Negative (Negative); RBC,Urine 3 /hpf (0-5); Specific Gravity,Urine 1.009 (1.001-1.035); Squamous Epithelial Cell,Urine 4 /hpf (0-4); Urobilinogen,Urine <2.0 mg/dL (<2.0); WBC,Urine 23 /hpf (0-5)
[2020-01-18] MEDS: PRENATAL VIT-IRON-FOLIC ACID 1 EACH CAP PO SCH (08:26)
[2020-01-18] MEDS ORDERED: HALOPERIDOL LACTATE 5 MG/ML 1 ML VIAL IM PRN (10:41)
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
[2020-01-18] MEDS: NICOTINE POLACRILEX 2 MG GUM BUCCAL PRN ×2 (14:17→19:08)
[2020-01-18] MEDS: CEPHALEXIN 500 MG CAP PO SCH ×2 (20:23→20:53)
[2020-01-18] MEDS: risperiDONE ODT 2 MG TAB PO SCH (20:53)
[2020-01-18] MEDS: MELATONIN 3 MG TABLET PO SCH (20:53)
[2020-01-18] MEDS ORDERED: risperiDONE ODT 1 MG TAB PO SCH (21:00)
--- NOTE | 2020-01-18 23:26 | CONS ---
CONSULTATION DATE OF SERVICE: 01/18/2020 REASON FOR CONSULTATION: Advice regarding opportunistic infection and other multiple medical issues, requested by Psychiatry. HISTORY OF PRESENT ILLNESS: This 29-year-old woman with a past medical history of multiple medical problems, including history of ADD, ADHD, anxiety, depression, suicidal disorder, apparently was not compliant with medications. Patient follows with Dr. Rsos in the outpatient setting. The patient is complaining of some cough at this time. There is no significant sputum, no history of fever, rigor or chills. No history of headache, , nausea or sore throat, either. No history of recent travel or any history of contact with any infected person, either. The patient was also found to have a test positive in the ER apparently. PAST MEDICAL HISTORY: History of ADD, ADHD, history of anxiety, depression, schizoaffective disorder. History of nicotine dependence. MEDICATIONS: Medications prior to admission include vitamins. ALLERGIES: BEE POLLEN, CIPRO. FAMILY HISTORY: History of hypertension in the family. SOCIAL HISTORY: History of smoking, continued, ongoing. REVIEW OF SYSTEMS: ENT: As mentioned earlier. CARDIOVASCULAR SYSTEM: No angina or palpitations. RESPIRATORY SYSTEM: As mentioned earlier. GI: No nausea, vomiting. : No dysuria, retention. NERVOUS SYSTEM: No numbness or weakness. ALLERGY/IMMUNOLOGY: No asthma or hayfever. MUSCULOSKELETAL: As mentioned earlier. HEMATOLOGY/ONCOLOGY: No history of anemia. ENDOCRINE: No diabetes or hypothyroidism. CONSTITUTIONAL: As mentioned earlier. DERMATOLOGY: Negative. RHEUMATOLOGIC: Negative. PSYCHIATRIC: As mentioned earlier. PHYSICAL EXAMINATION: Alert and oriented times three. Pulse 89, blood pressure 127/86, respirations 16, temperature 98.6, pulse ox 98% on room air. HEENT: Conjunctivae normal. NECK: No jugular venous distention. CARDIOVASCULAR: S1, S2 muffled. No S3. No S4. RESPIRATORY: Breath sounds diminished in the bases. No rhonchi. No crackles. ABDOMEN: Soft, nontender. No mass palpable. LEGS: No edema, no swelling. NERVOUS SYSTEM: No focal deficit. Higher functions, cranial nerves II to XII grossly intact. Eye movements are full in all directions. No nystagmus. No diplopia. No asymmetry of the face. Moves all 4 limbs. Gait normal. Power is normal. No sensory abnormalities. LYMPHATICS: No lymph node palpable in neck, axillae or groin. JOINTS: No active deforming arthropathy. LABS: Labs at this time show UA with possible UTI. ASSESSMENT: 1. Possible opportunistic infection. 2. Possible urinary tract infection, present on admission. 3. Attention deficit disorder, attention deficit hyperactivity disorder. 4. Anxiety and depression. 5. Schizoaffective disorder. 6. History of continued ongoing nicotine dependence. RECOMMENDATIONS AND DISCUSSION: In this 29-year-old woman who presented with multiple medical issues, at this time I recommend to continue the current medications, continue with symptomatic treatment. I recommend a course of antibiotics. Otherwise, I recommend repeat labs. Baseline lines. Resume the home medications. Will follow the patient closely with you. Patient may be asked to follow up with Dr. Rogers regarding the above-mentioned multiple medical issues. Further recommendations to follow. AUTHORIZATION REP evaluation also has been sought. Thank you, Martin, for letting us participate in the care of this patient. MMODL / IJN: [id number] / [email or web address]
[2020-01-19] MEDS: CEPHALEXIN 500 MG CAP PO SCH ×3 (08:57→22:21)
[2020-01-19] MEDS: PRENATAL VIT-IRON-FOLIC ACID 1 EACH CAP PO SCH (08:58)
[2020-01-19] MEDS: risperiDONE ODT 2 MG TAB PO SCH (08:58)
[2020-01-19] MEDS ORDERED: HALOPERIDOL LACTATE 5 MG/ML 1 ML VIAL IM PRN (11:07)
--- NOTE | 2020-01-19 11:20 | P.PN ---
Progress Note - Text Progress Note Date: 01/19/20 Interval History: Patient was seen [wandering the hallways] and was directable and agreeable to speak with feature writer in the office. Patient initially was calm and polite and continues to minimize her symptoms. Patient began being argumentative and confrontational as soon as feature writer asked patient about her medications and how she is refusing them. Patient states that feature writer is not an "expert on " and goes on to tell him that "you don't know what the court order is". Patient continues to have poor insight and judgment and is irritable. She continues to claim that she will refuse medications even though she is court ordered. Patient claims that her mood is "fine" however she has an incongruent angry affect and labile. She is continuing to focus on discharge and is guarded/evasive. Patient did not sleep well last night and has fair energy. At this time patient denies any suicidal or homical ideations, intent or plan. Patient denies any auditory, visual hallucinations and denies any paranoia or delusions. Mental Status Exam: General Appearance: Patient appears to be stated age is alert, hostile confrontational and paranoid. Patient appears to have poor hygiene and grooming. Behavior: Patient is seated without any agitated behavior. Hostile/argumentative and paranoid. Speech: Patient's speech is fluent and nonpressured. Mood/Affect: Patient reports their mood is "fine", affect is incongruent and labile. Suicidality/Homicidality: Patient denies having any homicidal ideation intent or plan. Denies any suicidal ideations intent or plan Perceptions: Patient denies any visual hallucinations and denies any auditory hallucinations Though content/process: Patient is paranoid and hostile/argumentative. Guarded and evasive. Memory and concentration: AOX3, grossly intact for the purposes of this session. Can spell "WORLD" backwards Judgment and insight: poor/impulsive Assessment Schizoaffective disorder, bipolar type Nicotine dependence Plan: -Patient is admitted to MHU for stabilization of psychiatric symptoms and safety. Patient is currently on a court order treatment which expires in 03/21/2020. Patient refused to sign for medication consent and was placed in patient's chart. -Medications: We'll continue with Risperdal 1 mg twice a day for psychosis/mood stabilization. As patient is under court order, If patient refuses by mouth Risperdal then she is to receive IM Haldol. We'll attempt to minimize psychiatric medication as best as possible and explained to patient the risks versus benefits of treatment for psychosis as she is currently and the possible risks to the fetus. The plan will be to transition patient onto long- acting injection as the risks of patient being noncompliant and psychotic outweigh the risks of possible teratogenicity to the baby. -Awaiting DIETARY INTERNSHIP consult and will appreciate recommendations. Patient is declining blood work at this time. -NRT - Guru wade -SW on board for discharge planning. Encouraged the patient to participate in milieu. Informatics Specialist spoke with Dr. Allen yesterday over the phone who claims that patient did not receive her long-acting Abilify injection since October that patient has gradually deteriorated and is now . He recommended that patient be placed back on a long-acting injection to ensure compliance as patient has decompensated significantly and has a significant history of poor insight judgment and impulsivity which do require medication/treatment.
--- NOTE | 2020-01-19 11:49 | P.CON ---
Consult Note - . Consult date: 01/19/20 Assessment/Plan:: This is a 29-year-old white female 3 para 2001 who was admitted on 01/17/2020 with a diagnosis of schizophrenia and psychosis to the psychiatric floor of our hospital. Patient was found to have a positive test, and an obstetrical consultation was requested. She denies vaginal bleeding or spotting. She does not know the first day of her last menstrual period, but states that she believes her due date is in June. She is feeling movement. The father of this baby is her current partner with whom she states she has a good relationship. He is a different father from her previous children. Past medical history is significant for mental health issues. Past surgical history eustachian tubes in the ears as a child. ALLERGIES bee stings, no known medical ALLERGIES reviewed Current medications melatonin daily, Nicorette gum daily, risperidone ordered, but patient is refusing to take. Social history patient is single, she does not work, she is a tobacco smoker but denies alcohol or drug use. Obstetric history is significant for normal spontaneous vaginal deliveries, 2, on remarkable. On exam patient is 5 foot 6 inches, 170 pounds, vital signs are stable and she is afebrile. The general physical exam is within normal limits. The patient is slightly confused upon history taking, she is rather argumentative and is basically refusing full physical examination. She is consenting to ultrasound exam. The fundus appears to be at approximately the umbilical level. Extremities reveal no edema. Chest is clear in all mcgee. Impression: 3 para 2 with unknown dates, approximately 20+ weeks gestation, currently admitted for psychiatric care. Plan: At this time I will order all labs. We will obtain an ultrasound to verify patient's EDC. She states she does not plan on delivering at this hospital but is unclear as to whether she might proceed with her obstetrical care. Thank you for the consultation.
[2020-01-19] MEDS: risperiDONE ODT 1 MG TAB PO SCH ×2 (11:52→21:20)
[2020-01-19] MEDS: NICOTINE POLACRILEX 2 MG GUM BUCCAL PRN ×2 (12:35→19:15)
--- NOTE | 2020-01-19 16:05 | US ---
EXAMINATION TYPE: US OB >= 14 wk fetus DATE OF EXAM: 01/19/2020 COMPARISON: None CLINICAL HISTORY: anatomy and EDC TECHNIQUE: Transabdominal (TA) GESTATIONAL AGE / DATING Physician Established: Not yet established Dates by LMP: Unknown Dates by First Scan: No previous Dates by Current Scan: (16 weeks/0 days) EDC: 07/05/20 Beta HCG (if available): SURVEY IUP: Single PLACENTA: Posterior PREVIA: No Previa DARRICK: wnl cm CERVICAL LENGTH (transabdominal: norm > 3.0cm): 3.8 cm BIOMETRY PRESENTATION: Vertex LIE: Longitudinal BPD: 3.3 cm 16 weeks / 2 days HC: 11.6 cm 15 weeks / 5 days AC: 9.7 cm 15 weeks / 6 days FL: 2.1 cm 16 weeks / 1 days ESTIMATED WEIGHT IN GRAMS: 140.3 grams ESTIMATED WEIGHT IN LBS/OZ: lbs. 5 oz. WEIGHT PERCENTAGE BASED ON ESTABLISHED DATES: Not obtained HC/AC: 1.2 Normal FL/AC: 21.1 Normal HEART RATE: 133 bpm RHYTHM: Normal IMPRESSION: Limited exam. Exam abruptly terminated by patient who stated she no longer felt comfortab le having an ultrasound. In the visualized portions of the exam there is a single live intrauterine p regnancy with a sonographic age of 16 weeks and 0 days and estimated date of delivery of 07/05/2020.
[2020-01-19] MEDS: MELATONIN 3 MG TABLET PO SCH (21:21)
[2020-01-20] MEDS: PRENATAL VIT-IRON-FOLIC ACID 1 EACH CAP PO SCH ×2 (08:37→08:39)
[2020-01-20] MEDS: CEPHALEXIN 500 MG CAP PO SCH ×3 (08:37→21:29)
[2020-01-20] MEDS: risperiDONE ODT 1 MG TAB PO SCH ×2 (08:37→21:29)
--- NOTE | 2020-01-20 12:08 | P.PN ---
Progress Note - Text Progress Note Date: 01/20/20 Interval History: Patient was seen [wandering the hallways] and was directable and agreeable to speak with scientific technical writer in the office. Patient initially was calm and polite during the interview and continues to be superficially cooperative. She continues to minimize her symptoms and has poor insight and judgment. Patient read about different goals that she has when she leaves the hospital and then includes to go get paperwork filed a [employer] and to go to several appointments. Patient spoke about taking her medications now and states that her RECORDIST doctor approved of it. Patient continues to be focused on discharge. She states that she slept around 3-4 hours last night and has not been taking her melatonin was encouraged to do so. Patient claims that her mood is "fine" and appeared to be calmer today. Patient has fair energy. At this time patient denies any suicidal or homical ideations, intent or plan. Patient denies any auditory, visual hallucinations and denies any paranoia or delusions. Mental Status Exam: General Appearance: Patient appears to be stated age is alert, less c onfrontational and paranoid. Patient appears to have improving hygiene and grooming. Behavior: Patient is seated without any agitated behavior. Superficially cooperative. Speech: Patient's speech is fluent and nonpressured. Mood/Affect: Patient reports their mood is "fine", affect is incongruent Suicidality/Homicidality: Patient denies having any homicidal ideation intent or plan. Denies any suicidal ideations intent or plan Perceptions: Patient denies any visual hallucinations and denies any auditory hallucinations Though content/process: Goal oriented, poverty of content. Logical and more organized today. Memory and concentration: AOX3, grossly intact for the purposes of this session. Can spell "WORLD" backwards Judgment and insight: Chronically poor, mildly improving. Assessment Schizoaffective disorder, bipolar type Nicotine dependence Plan: -Patient is admitted to MHU for stabilization of psychiatric symptoms and safety. Patient is currently on a court order treatment which expires in 03/21/2020. Patient refused to sign for medication consent and was placed in patient's chart. -Medications: We'll continue with Risperdal 1 mg twice a day for psychosis/mood stabilization. As patient is under court order, If patient refuses by mouth Risperdal then she is to receive IM Haldol. We'll attempt to minimize psychiatric medication as best as possible and explained to patient the risks versus benefits of treatment for psychosis as she is currently and the possible risks to the fetus. The plan will be to transition patient onto long- acting injection as the risks of patient being noncompliant and psychotic outweigh the risks of possible teratogenicity to the baby. -RECORDIST consult completed inpatient recommendations. Patient had ultrasound done yesterday which was a limited study and showed a 16 week intrauterine , likely due date and of June. We'll attempt to confirm with RECORDIST about antipsychotic medication and whether patient is a good candidate for long-acting injection. -NRT - Nicorette gum -SW on board for discharge planning. Encouraged the patient to participate in milieu.
[2020-01-20] MEDS: NICOTINE POLACRILEX 2 MG GUM BUCCAL PRN (13:35)
[2020-01-20] MEDS: MELATONIN 3 MG TABLET PO SCH (23:00)
[2020-01-21] MEDS: PRENATAL VIT-IRON-FOLIC ACID 1 EACH CAP PO SCH (10:02)
[2020-01-21] MEDS: CEPHALEXIN 500 MG CAP PO SCH ×3 (10:03→20:45)
[2020-01-21] MEDS: risperiDONE ODT 1 MG TAB PO SCH ×2 (10:04→20:45)
--- NOTE | 2020-01-21 10:20 | P.PN ---
Progress Note - Text Progress Note Date: 01/21/20 Interval History: Patient was seen wandering the hallways and was directable and agreeable to sp eak with senior grant writer in the office. Patient was calmer today and more polite with senior grant writer during interview. Patient claims that she feels the medication is helping her feel calmer and helping her mood. Patient was less argumentative with senior grant writer today. Spread Cutter spoke about patient's ultrasound results and patient appeared to be happy that she will be expecting the baby in late June. She continues to minimize her symptoms and has poor insight and judgment however patient has been taking her medications at this time and following unit protocol. Patient continues to be focused on discharge. She states that she slept around 3-4 hours last night and offered no complaints. Patient claims that her mood is "fine" today. Patient has fair energy. At this time patient denies any suicidal or homical ideations, intent or plan. Patient denies any auditory, visual hallucinations and denies any paranoia or delusions. Mental Status Exam: General Appearance: Patient appears to be stated age is alert, less confrontational. Patient appears to have improving hygiene and grooming. Behavior: Patient is seated without any agitated behavior. More cooperative. Speech: Patient's speech is fluent and nonpressured. Mood/Affect: Patient reports their mood is "fine", affect is incongruent Suicidality/Homicidality: Patient denies having any homicidal ideation intent or plan. Denies any suicidal ideations intent or plan Perceptions: Patient denies any visual hallucinations and denies any auditory hallucinations Though content/process: Goal oriented, poverty of content. Logical and more organized today. Memory and concentration: AOX3, grossly intact for the purposes of this session. Can spell "WORLD" backwards Judgment and insight: Chronically poor, mildly improving. Assessment Schizoaffective disorder, bipolar type Nicotine dependence Plan: -Patient is admitted to MHU for stabilization of psychiatric symptoms and safety. Patient is currently on a court order treatment which expires in 03/21/2020. Patient refused to sign for medication consent and was placed in patient's chart. -Medications: We'll continue with Risperdal 1 mg twice a day for psychosis/mood stabilization. As patient is under court order, If patient refuses by mouth Risperdal then she is to receive IM Haldol. We'll attempt to minimize psychiatric medication as best as possible and explained to patient the risks versus benefits of treatment for psychosis as she is currently and the possible risks to the fetus. The plan will be to transition patient onto long- acting injection as the risks of patient being noncompliant and psychotic outweigh the risks of possible teratogenicity to the baby. -FISHERMAN HELPER consult completed inpatient recommendations. Patient had ultrasound done on 01/20/2020 which was a limited study and showed a 16 week intrauterine , likely due date and of June. -We'll attempt to confirm with FISHERMAN HELPER about antipsychotic medication and whether patient is a good candidate for long-acting injection. -NRT - Nicorette gum -SW on board for discharge planning. Encouraged the patient to participate in milieu. Likely discharge sometime this coming week once housing is confirmed and patient is placed on long-acting injection.
--- NOTE | 2020-01-21 11:13 | P.PN ---
Progress Note - Text Progress Note Date: 01/21/20 Late entry from 01/20/2020: I reviewed with the patient her limited obstetrical ultrasound. She has an estimated due date of 07/05/2020 which makes her 16 weeks . The patient terminated the exam in the ultrasound unit prior to having a full anatomic survey completed. Today she reports she is feeling well but also tells me she does not specifically want to speak about her . I did provide her with her due date and wrote that down for her. She is uncertain who she will seek care with following discharge from the hospital. She is encouraged to follow up at [facility] for her care if she is unable to establish somewhere else. She again indicated she was not comfortable speaking about the on the unit when I attempted to give her some basic counseling regarding healthy habits, her current medications etc. I would recommend close obstetrical evaluation and follow-up following discharge from the hospital within 1-2 weeks. Please state contact me should she have any further questions regarding her care.
[2020-01-21] MEDS: NICOTINE POLACRILEX 2 MG GUM BUCCAL PRN ×2 (11:18→16:22)
[2020-01-21] MEDS: MELATONIN 3 MG TABLET PO SCH (21:33)
[2020-01-22] MEDS: risperiDONE ODT 1 MG TAB PO SCH (08:33)
[2020-01-22] MEDS: PRENATAL VIT-IRON-FOLIC ACID 1 EACH CAP PO SCH (08:34)
[2020-01-22] MEDS: NICOTINE POLACRILEX 2 MG GUM BUCCAL PRN ×2 (08:35→22:18)
--- NOTE | 2020-01-22 12:08 | P.PN ---
Progress Note - Text Progress Note Date: 01/22/20 Interval History: Patient was seen wandering the hallways and was directable and agreeable to sp eak with technical proposal writer in the office. Patient was initially calmer today and more polite with technical proposal writer during interview. Patient answered most questions appropriately however appear to show disorganized thinking and continued poor judgment and insight. Patient was argumentative with technical proposal writer today about her medications and continues to be focused on discharge. She states that she has been going to some groups however feels that "the unit is not a good environment for me" and spoke about the "lack of stimulation". She states that she slept around 4 hours last night and offered no complaints. Patient claims that her mood is "fine" today however had an incongruent affect and began to be more argumentative as interview progressed. Patient did state that she was okay with being put on a long-acting antipsychotic as per the court order. Patient has fair energy. At this time patient denies any suicidal or homical ideations, intent or plan. Patient denies any auditory, visual hallucinations and denies any paranoia or delusions. Mental Status Exam: General Appearance: Patient appears to be stated age is alert, confrontational and argumentative. Patient appears to have improving hygiene and grooming. Behavior: Patient is seated without any agitated behavior. Argumentative today. Speech: Patient's speech is fluent and nonpressured. Mood/Affect: Patient reports their mood is "fine", affect is incongruent and superficial. Suicidality/Homicidality: Patient denies having any homicidal ideation intent or plan. Denies any suicidal ideations intent or plan Perceptions: Patient denies any visual hallucinations and denies any auditory hallucinations Though content/process: Goal oriented, poverty of content. Logical and more organized today. Poor insight and judgment. Focused on her medication and discharged. Memory and concentration: AOX3, grossly intact for the purposes of this session. Can spell "WORLD" backwards Judgment and insight: Chronically poor, mildly improving. Assessment: Schizoaffective disorder, bipolar type Nicotine dependence Plan: -Patient is admitted to MHU for stabilization of psychiatric symptoms and safety. Patient is currently on a court order treatment which expires in 03/21/2020. Patient refused to sign for medication consent and was placed in patient's chart. -Medications: We'll continue with Risperdal 1 mg twice a day for psychosis/mood stabilization and consider increasing dose. As patient is under court order, If patient refuses by mouth Risperdal then she is to receive IM Haldol. We'll attempt to minimize psychiatric medication as best as possible and explained to patient the risks versus benefits of treatment for psychosis as she is currently and the possible risks to the fetus. The plan will be to transition patient onto long-acting injection as the risks of patient being noncompliant and psychotic outweigh the risks of possible teratogenicity to the baby. Currently attempting to coordinate with pharmacy and FISCAL ECONOMIST for best suited/least risk of teratogenicity long-acting antipsychotic for the patient. -FISCAL ECONOMIST consult completed inpatient recommendations. Patient had ultrasound done on 01/20/2020 which was a limited study and showed a 16 week intrauterine , likely due date and of June. -We'll attempt to confirm with FISCAL ECONOMIST about antipsychotic medication and whether patient is a good candidate for long-acting injection. -NRT - Nicorette gum -SW on board for discharge planning. Encouraged the patient to participate in milieu. Likely discharge sometime this coming week once housing is confirmed and patient is placed on long-acting injection.
[2020-01-22] MEDS ORDERED: PALIPERIDONE IM 234 MG/1.5 ML SYG IM STA (13:51)
[2020-01-22] MEDS ORDERED: risperiDONE ODT 2 MG TAB PO SCH (21:00)
[2020-01-22] MEDS: MELATONIN 3 MG TABLET PO SCH (22:10)
[2020-01-23] MEDS ORDERED: risperiDONE ODT 1 MG TAB PO SCH (09:00)
[2020-01-23] MEDS: PRENATAL VIT-IRON-FOLIC ACID 1 EACH CAP PO SCH (09:31)
[2020-01-23 12:11] LABS: Basophils % (A) 0 %; Eosinophils # (A) 0.2 k/uL (0-0.7); Eosinophils % (A) 2 %; HCT 37.6 % (34.0-46.0); HGB 12.7 gm/dL (11.4-16.0); Lymphocytes # (A) 1.6 k/uL (1.0-4.8); Lymphocytes % (A) 15 %; MCH 32.6 pg (25.0-35.0); MCHC 33.9 g/dL (31.0-37.0); MCV 96.3 fL (80.0-100.0); Mean Platelet Volume 7.7; Monocytes # (A) 0.4 k/uL (0-1.0); Monocytes % (A) 4 %; Neutrophils # (A) 8.1 k/uL (1.3-7.7); Neutrophils % (A) 77 %; Platelet Count 196 k/uL (150-450); RDW 12.6 % (11.5-15.5); WBC 10.5 k/uL (3.8-10.6)
[2020-01-23 12:15] LABS: ALT 11 U/L (4-34); AST 17 U/L (14-36); African American GFR (CKD) >90 (>60 ml/min/1.73 sqM); Albumin 3.3 g/dL (3.5-5.0); Alkaline Phosphatase 39 U/L (38-126); Anion Gap 3 mmol/L; Blood Urea Nitrogen 13 mg/dL (7-17); Carbon Dioxide 24 mmol/L (22-30); Chloride 106 mmol/L (98-107); Glucose 77 mg/dL (74-99); Non-African American GFR(CKD) >90 (>60 ml/min/1.73 sqM); Potassium 4.2 mmol/L (3.5-5.1); Sodium 133 mmol/L (137-145); Total Bilirubin 0.2 mg/dL (0.2-1.3); Total Protein 5.8 g/dL (6.3-8.2)
[2020-01-23] MEDS: NICOTINE POLACRILEX 2 MG GUM BUCCAL PRN ×2 (13:22→21:31)
--- NOTE | 2020-01-23 14:06 | P.PN ---
Progress Note - Text Progress Note Date: 01/23/20 Interval History: Patient was seen coming out of her room this morning and was directable and ag reeable to speak with data analyst report writer in the office. Patient appeared to be lethargic and was coughing and say that she had a sore throat. She denied any fevers at all or any chills. She states that she slept well last night however continues to cough. She states that she was not sure about taking her Risperdal at 2 mg at night and did not know why it was increased. Director Of Database Marketing explained why and that patient will be titrated off by mouth Risperdal as she is getting switched onto Invega Sustenna long-acting. Patient was calmer today and more polite with data analyst report writer during interview. Patient answered most questions appropriately and appeared to have slightly improved judgment and insight today. Patient was more onboard with her treatment plan today. She states that she has been going to some groups however continues to focus on discharge. Patient claims that her mood is "good" today. At this time patient denies any suicidal or homical ideations, intent or plan. Patient denies any auditory, visual hallucinations and denies any paranoia or delusions. Mental Status Exam: General Appearance: Patient appears to be stated age is alert, less confrontational/argumentative today. Patient appears to have improving hygiene and grooming. Behavior: Patient is seated without any agitated behavior. More cooperative Today. Speech: Patient's speech is fluent and nonpressured. Mood/Affect: Patient reports their mood is "alright", affect is congruent and superficial. Suicidality/Homicidality: Patient denies having any homicidal ideation intent or plan. Denies any suicidal ideations intent or plan Perceptions: Patient denies any visual hallucinations and denies any auditory hallucinations Though content/process: Goal oriented. Logical and more organized today. Improving insight and judgment. Focused on discharged. Memory and concentration: AOX3, grossly intact for the purposes of this session. Can spell "WORLD" backwards Judgment and insight: Chronically poor, mildly improving. Assessment: Schizoaffective disorder, bipolar type Nicotine dependence Plan: -Patient is admitted to MHU for stabilization of psychiatric symptoms and safety. Patient is currently on a court order treatment which expires in 03/21/2020. Patient refused to sign for medication consent and was placed in patient's chart. -Medications: We'll continue with Risperdal 1 mg twice a day for psychosis/mood stabilization and gradually titrate patient off this week. Patient received Invega Sustenna 234 mg IM on 01/22/2020 and tolerated well. As patient is under court order, If patient refuses by mouth Risperdal then she is to receive IM Haldol. We'll attempt to minimize psychiatric medication as best as possible and explained to patient the risks versus benefits of treatment for psychosis as she is currently and the possible risks to the fetus. Continue with transition patient onto long-acting injection as the risks of patient being noncompliant and psychotic outweigh the risks of possible teratogenicity to the baby. Spoke with Dr. Whiteside FOREIGN LANGUAGE STENOGRAPHER about patient's medication and Invega Sustenna is a category C for and therefore the benefits outweigh the risks at this time. -FOREIGN LANGUAGE STENOGRAPHER consult completed inpatient recommendations. Patient had ultrasound done on 01/20/2020 which was a limited study and showed a 16 week intrauterine , likely due date and of June. -NRT - Nicorette gum -SW on board for discharge planning. Encouraged the patient to participate in milieu. Likely discharge Wednesday after patient receives her second dose of Invega Sustenna. Social work to confirm patient's housing situation.
[2020-01-23] MEDS: risperiDONE ODT 1 MG TAB PO SCH (21:31)
[2020-01-23] MEDS: MELATONIN 3 MG TABLET PO SCH (21:35)
[2020-01-24 01:52] VITALS: TEMP 98.3
[2020-01-24] MEDS: PRENATAL VIT-IRON-FOLIC ACID 1 EACH CAP PO SCH ×2 (08:17→08:19)
[2020-01-24] MEDS: risperiDONE ODT 1 MG TAB PO SCH (08:17)
[2020-01-24] MEDS: NICOTINE POLACRILEX 2 MG GUM BUCCAL PRN ×2 (08:18→17:14)
--- NOTE | 2020-01-24 10:20 | P.PN ---
Progress Note - Text Progress Note Date: 01/24/20 Interval History: Patient was seen laying in her bed in her room this morning and was directable and agreeable to speak with telegraphic typewriter operator chief in the office. Patient appeared to be continuing to cough this morning however states that her cough and cold symptoms have improved since yesterday. She states that she had a difficult time sleeping last night due to her symptoms initially and states that she woke up late this morning. She denied any fevers at all or any chills, patient does not have a white count at this time and no fever, vitals reviewed. Patient appeared to be more cooperative and polite with telegraphic typewriter operator chief and more future oriented. Patient was logical and appropriate during conversation. She is continuing to be agreeable to take the second long-acting injection on Wednesday and be discharged after. Patient appeared to have slightly improved judgment and insight today. She states that she has been going to some groups however continues to focus on discharge. Patient claims that her mood is "good" today. At this time patient denies any suicidal or homical ideations, intent or plan. Patient denies any auditory, visual hallucinations and denies any paranoia or delusions. Mental Status Exam: General Appearance: Patient appears to be stated age is alert, more cooperative today. Patient appears to have improving hygiene and grooming. Behavior: Patient is seated without any agitated behavior. More cooperative Speech: Patient's speech is fluent and nonpressured. Mood/Affect: Patient reports their mood is "good", affect is congruent and superficial. Suicidality/Homicidality: Patient denies having any homicidal ideation intent or plan. Denies any suicidal ideations intent or plan Perceptions: Patient denies any visual hallucinations and denies any auditory hallucinations Though content/process: Goal oriented. Logical and more organized today. Improving insight and judgment. Memory and concentration: AOX3, grossly intact for the purposes of this session. Can spell "WORLD" backwards Judgment and insight: Chronically poor, mildly improving. Assessment: Schizoaffective disorder, bipolar type Nicotine dependence Plan: -Patient is admitted to MHU for stabilization of psychiatric symptoms and safety. Patient is currently on a court order treatment which expires in . Patient refused to sign for medication consent and was placed in patient's chart. -Medications: We'll continue decreasing Risperdal 1 mg daily for psychosis/mood stabilization and gradually titrate patient off this week. Patient received Invega Sustenna 234 mg IM on 01/22/2020 and tolerated well and will be due for her next dose of 156 mg on Wednesday. As patient is under court order, If patient refuses by mouth Risperdal then she is to receive IM Haldol. We'll attempt to minimize psychiatric medication as best as possible and explained to patient the risks versus benefits of treatment for psychosis as she is currently and the possible risks to the fetus. Continue with transition patient onto long-acting injection as the risks of patient being noncompliant and psychotic o utweigh the risks of possible teratogenicity to the baby. Spoke with Dr. Whiteside OCCUPATIONAL HEALTH PROFESSIONAL about patient's medication and Invega Sustenna is a category C for and therefore the benefits outweigh the risks at this time. -OCCUPATIONAL HEALTH PROFESSIONAL consult completed inpatient recommendations. Patient had ultrasound done on 01/20/2020 which was a limited study and showed a 16 week intrauterine , likely due date and of June. -NRT - Nicorette gum -SW on board for discharge planning. Encouraged the patient to participate in milieu. Likely discharge Wednesday after patient receives her second dose of Invega Sustenna. Social work to confirm patient's housing situation.
[2020-01-24 13:20] VITALS: BMI 28.3
[2020-01-24] MEDS: MELATONIN 3 MG TABLET PO SCH (17:14)
[2020-01-25] MEDS: NICOTINE POLACRILEX 2 MG GUM BUCCAL PRN ×3 (05:10→18:16)
[2020-01-25 05:17] VITALS: BP 116/57; PULSE 77; RESP 14
[2020-01-25] MEDS ORDERED: risperiDONE ODT 1 MG TAB PO SCH (09:00)
[2020-01-25] MEDS: PRENATAL VIT-IRON-FOLIC ACID 1 EACH CAP PO SCH (10:10)
--- NOTE | 2020-01-25 10:28 | P.PN ---
Progress Note - Text Progress Note Date: 01/25/20 Interval History: Patient was seen laying in her bed in her room this morning and was directable and agreeable to speak with feature writer. Patient appeared to be more awake this morning and claims that she is feeling better. She states that she was able to sleep throughout the night and claims that her cough has been getting better. She offered no particular complaints and states that she has been going to groups and trying to work on her coping skills. She continues to be focused on discharge however was more polite today to feature writer and continues to be on board with the plan to receive her second injection dose tomorrow prior to discharge. She states that she spoke with her landlord and claims that she is excited to go home tomorrow. She denied any fevers at all or any chills, patient does not have a white count at this time and no fever, vitals reviewed. Patient was logical and appropriate during conversation. Patient claims that her mood is "alright" today. At this time patient denies any suicidal or homical ideations, intent or plan. Patient denies any auditory, visual hallucinations and denies any paranoia or delusions. Mental Status Exam: General Appearance: Patient appears to be stated age is alert, more cooperative today. Patient appears to have improving hygiene and grooming. Behavior: Patient is seated without any agitated behavior. More cooperative/polite. Speech: Patient's speech is fluent and nonpressured. Mood/Affect: Patient reports their mood is "alright", affect is congruent and superficial. Suicidality/Homicidality: Patient denies having any homicidal ideation intent or plan. Denies any suicidal ideations intent or plan Perceptions: Patient denies any visual hallucinations and denies any auditory hallucinations Though content/process: Goal oriented. Logical and more organized today. Improving insight and judgment. Memory and concentration: AOX3, grossly intact for the purposes of this session. Can spell "WORLD" backwards Judgment and insight: Chronically poor, mildly improving. Assessment: Schizoaffective disorder, bipolar type Nicotine dependence Plan: -Patient is admitted to MHU for stabilization of psychiatric symptoms and safety. Patient is currently on a court order treatment which expires in 03/21/2020. Patient refused to sign for medication consent and was placed in patient's chart. -Medications: We'll discontinue Risperdal by mouth for tomorrow. Patient received Invega Sustenna 234 mg IM on 01/22/2020 and tolerated well and will be due for her next dose of 156 mg tomorrow. As patient is under court order, If patient refuses by mouth Risperdal then she is to receive IM Haldol. We'll attempt to minimize psychiatric medication as best as possible and explained to patient the risks versus benefits of treatment for psychosis as she is currently and the possible risks to the fetus. Continue with transition patient onto long-acting injection as the risks of patient being noncompliant and psychotic outweigh the risks of possible teratogenicity to the baby. Spoke with Dr. Whiteside FLAKER TENDER about patient's medication and Invega Sustenna is a category C for and therefore the benefits outweigh the risks at this time. -FLAKER TENDER consult completed inpatient recommendations. Patient had ultrasound done on 01/20/2020 which was a limited study and showed a 16 week intrauterine , likely due date and of June. -NRT - Nicorette gum -SW on board for discharge planning. Encouraged the patient to participate in milieu. Likely discharge Wednesday after patient receives her second dose of Invega Sustenna, scheduled for the morning. Social work to confirm patient's housing situation.
[2020-01-25 11:24] LABS: African American GFR (CKD) >90 (>60 ml/min/1.73 sqM); Anion Gap 3 mmol/L; Blood Urea Nitrogen 11 mg/dL (7-17); Calcium 9.2 mg/dL (8.4-10.2); Carbon Dioxide 27 mmol/L (22-30); Chloride 106 mmol/L (98-107); Glucose 76 mg/dL (74-99); Non-African American GFR(CKD) >90 (>60 ml/min/1.73 sqM); Potassium 4.3 mmol/L (3.5-5.1); Sodium 136 mmol/L (137-145)
[2020-01-25] MEDS ORDERED: PERMETHRIN 1% CREME RINSE 59 ML LIQUID TOPICAL ONE (19:35)
[2020-01-25] MEDS: MELATONIN 3 MG TABLET PO SCH (21:00)
[2020-01-26] MEDS ORDERED: PALIPERIDONE IM 156 MG/ML SYG IM ONE (09:00)
[2020-01-26] MEDS: PRENATAL VIT-IRON-FOLIC ACID 1 EACH CAP PO SCH (09:57)
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
== END 2020-01-26 12:35 | disposition home or self-care (01) | DRG 833 ==
LOC: EC 15:21 → 3MHU 20:31
PROVIDERS: ADMIT Psychiatry & Neurology Psychiatry; ATTEND Psychiatry & Neurology Psychiatry
DX: O99.342 Other mental disorders complicating pregnancy, second trimester (principal); F25.0 Schizoaffective disorder, bipolar type; Z3A.16 16 weeks gestation of pregnancy; O99.332 Smoking (tobacco) complicating pregnancy, second trimester; B85.0 Pediculosis due to Pediculus humanus capitis; F17.200 Nicotine dependence, unspecified, uncomplicated; F41.9 Anxiety disorder, unspecified; F90.9 Attention-deficit hyperactivity disorder, unspecified type; J00 Acute nasopharyngitis [common cold]; O99.512 Diseases of the respiratory system complicating pregnancy, second trimester; Z82.49 Family history of ischemic heart disease and other diseases of the circulatory system; Z91.14 Patient's other noncompliance with medication regimen; Z91.19 Patient's noncompliance with other medical treatment and regimen; Z88.1 Allergy status to other antibiotic agents; Z91.030 Bee allergy status
CPT/HCPCS: 76805; 80048; 80053; 80306; 81001; 81025; 82075; 85025; 87502; 99285

== ENCOUNTER 2020-03-20 19:17 | Inpatient (IN) | payer MEDICARE, MEDICAID ==
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
[2020-03-20 20:37] LABS: Appearance,Urine Clear (Clear); Bacteria,Urine Rare /hpf; Bilirubin,Urine Negative (Negative); Blood,Urine Negative (Negative); Color,Urine Yellow; Glucose,Urine (UA) Negative (Negative); Ketones,Urine Negative (Negative); Leukocyte Esterase,Urine Trace (Negative); Mucus,Urine Occasional /hpf; Nitrite,Urine Negative (Negative); Protein,Urine Negative (Negative); RBC,Urine 1 /hpf (0-5); Specific Gravity,Urine 1.017 (1.001-1.035); Squamous Epithelial Cell,Urine 8 /hpf (0-4); Urobilinogen,Urine <2.0 mg/dL (<2.0); WBC,Urine 4 /hpf (0-5)
[2020-03-20 20:48] LABS: Amphetamine Screen,Urine Not Detected (NotDetected); Barbiturate Screen,Urine Not Detected (NotDetected); Benzodiazepines Screen,Urine Not Detected (NotDetected); Cocaine Screen,Urine Not Detected (NotDetected); Methadone Screen, Urine Not Detected (NotDetected); Opiate Screen,Urine Not Detected (NotDetected); Oxycodone Screen, Urine Not Detected (NotDetected); Phencyclidine Screen,Urine Not Detected (NotDetected); Tricyclic Antidepressant,Urine Not Detected (NotDetected); Urn Cannabinoid Scrn Not Detected (NotDetected)
[2020-03-20] MEDS ORDERED: ZIPRASIDONE 20 MG VIAL IM PRN (23:34)
[2020-03-20] MEDS ORDERED: MAGNESIUM HYDROXIDE 2,400 MG/10 ML CUP PO PRN (23:34)
[2020-03-20] MEDS ORDERED: MAG HYDROX/AL HYDROX/SIMETH 30 ML CUP PO PRN (23:34)
[2020-03-20] MEDS ORDERED: ACETAMINOPHEN TAB 325 MG TAB PO PRN (23:34)
[2020-03-21] MEDS ORDERED: PERMETHRIN 1% CREME RINSE 59 ML LIQUID TOPICAL ONE
[2020-03-21] MEDS ORDERED: PALIPERIDONE IM 234 MG/1.5 ML SYG IM SCH ×2 (09:30→11:00)
--- NOTE | 2020-03-21 12:28 | P.HP ---
Psychiatric H&P - . H&P Date: 03/21/20 History & Physical: IDENTIFYING DATA: She is a 29-year-old single female who has a history of a schizoaffective disorder. HISTORY OF PRESENT ILLNESS: The police brought her to the emergency room and gave EPS nurse an envelope that purportedly contained a "pickup order". However, when the nurse or the envelope and only contained a copy of her continuing order that expires on 03/22/2020. She told the EPS nurse that the police brought her to the emergency room to have a doctor "see her" about her medications. The nurse reviewed records from [facility]. She missed her last injection of Invega on 03/14/2020. She told the nurse that "the temporary guardian or my associate attorney called and told me I could either take the injection are not so I chose not to." She made what appeared to be delusional statements to his nurse about her ID have been stolen and this person is someone who had received her last injection. The EPS nurse spoke with Caridad on the ACT team who informed her that the patient was "supposed to be on a pickup order". Caridad stated that she has not been compliant with medication, care, refusing food from the ACT team and has no insight or her need for mental health treatment. We has several telephone conversations with [facility]. Apparently, they did not submit a request for a "pickup order" or submit a request to probate Court in a timely manner to continue her involuntary tr eatment order. The patient denied problems or concerns. She stated that she signed a voluntary admission in the emergency room yesterday. She admitted that she did not keep her appointment for her last Invega injection but denied that she had not followed through with care. She alleged that her last visit was "a week or 2" prior to admission. She denied feeling depressed or having thoughts of or suicide. She denied homicidal ideation. She denied persistent or sustained anxiety that she feels unable to control. She denied experiencing auditory hallucinations, ideas reference, thought insertion, thought broadcasting or thought control. She denied use of alcohol or drugs. Her UDS was negative for drugs of abuse. Her breath alcohol level was 0. PAST PSYCHIATRIC HISTORY: She has had multiple psychiatric hospitalization and a well-established diagnosis of a schizoaffective disorder. Her last discharged from our psychiatric unit was in January 2020. The discharge recommendations include Invega Sustenna 150 mg IM and follow-up at [facility]. PAST MEDICAL HISTORY: She is approximately 24 weeks . According to medical record she has a past history of asthma. She was initially diagnosed with lice and initially treated as an outpatient. ALLERGIES: Ciprofloxacin SUBSTANCE USE HISTORY: She denied history of substance use or substance use problems FAMILY PSYCHIATRIC/SUBSTANCE USE HISTORY: Denied LEGAL HISTORY: She has a public guardian SOCIAL HISTORY: She is single. She does not have custody of her 2 children. She graduated from high school. She lives in a room and board. She receives Social Security disability. MENTAL STATUS EXAM: She presented as a casually groomed 29-year-old female with long dark hair. She made eye contact and attended to the interview. She had no distinction features are prominent physical abnormalities. She had a blunted but bright facial expression. She was alert and oriented to person, place and time. She showed no abnormality of psychomotor activity. She had no abnormal involuntary movements. Her speech was spontaneous with decreased rate and rhythm. She had no articulation difficulties. Affect was blunted, stable and appropriate. She denied suicidal ideation and wishes. She denied homicidal ideation. She denied feeling hopeless, helpless or worthless. She did not express ideas reference, paranoid ideation or delusional thoughts. Her thinking was concrete but her associations were coherent and logical. She denied hallucinations and did not appear to be responding to internal stimuli. Global impression of intellect is average. She has limited awareness or understanding of her mental illness. STRENGTHS: Good physical health, stable housing, stable income, engagement with intensive community mental health services WEAKNESSES: Lack of insight or understanding of her mental illness IMPRESSION: She is a 29-year-old single female who is 24 weeks pre gnant. She presented to the [facility] under a purported pickup order but the necessary documents were unavailable. On subsequent investigation we learned that community mental health was planning to but had not executed the order. The patient was pleasant and cooperative. She admitted not keeping the appointment for less Invega injection but alleged that she is been following through with care. She had no obvious mood, anxiety or psychotic symptoms with the exception of marked blunting of her affect. We will continue with the outpatient plan and receiving the injection of Invega Sustenna 234 mg IM and arrange for follow-up obstetrical care. PRINCIPLE DIAGNOSIS: Schizoaffective disorder bipolar type RECOMMENDATION: Obtained voluntary admission. 24-hour isolation due to lice infection. Plan for discharge on 03/22/2020. Invega Sustenna 234 mg IM today and every monthly. Consult C IRON WORKER. Encourage participation in therapeutic groups and activities. Evaluate clinical status response to treatment daily basis. Follow-up with [facility]. Allergies Allergy/AdvReac Type Severity Reaction Status Date / Time bee pollen Allergy Unknown Unknown Verified 03/21/20 02:03 ciprofloxacin HCl Allergy Unknown Unknown Verified 03/21/20 02:03 [From Cipro] ciprofloxacin [From Cipro] Allergy Unknown Verified 03/21/20 02:03 Vital Signs Temp 97.5 F L 03/21/20 01:34 Pulse 91 03/21/20 01:34 Resp 15 03/21/20 01:34 BP 114/60 03/21/20 01:34 Pulse Ox 100 03/21/20 01:34 Intake & Output 03/20/20 03/21/20 03/21/20 18:59 06:59 18:59 Weight 83.659 kg Laboratory Last Values Urine Color Yellow 03/20/20 19:54 Urine Appearance Clear (Clear) 03/20/20 19:54 Urine pH 6.0 (5.0-8.0) 03/20/20 19:54 Ur Specific [place] 1.017 (1.001-1.035) 03/20/20 19:54 Urine Protein Negative (Negative) 03/20/20 19:54 Urine Glucose (UA) Negative (Negative) 03/20/20 19:54 Urine Ketones Negative (Negative) 03/20/20 19:54 Urine Blood Negative (Negative) 03/20/20 19:54 Urine Nitrite Negative (Negative) 03/20/20 19:54 Urine Bilirubin Negative (Negative) 03/20/20 19:54 Urine Urobilinogen <2.0 mg/dL (<2.0) 03/20/20 19:54 Ur Leukocyte Esterase Trace (Negative) H 03/20/20 19:54 Urine RBC 1 /hpf (0-5) 03/20/20 19:54 Urine WBC 4 /hpf (0-5) 03/20/20 19:54 Ur Squamous Epith Cells 8 /hpf (0-4) H 03/20/20 19:54 Urine Bacteria Rare /hpf (None) H 03/20/20 19:54 Urine Mucus Occasional /hpf (None) H 03/20/20 19:54 Urine HCG, Qual Detected (Not Detectd) 03/20/20 19:54 Urine Opiates Screen Not Detected (NotDetected) 03/20/20 19:54 Ur Oxycodone Screen Not Detected (NotDetected) 03/20/20 19:54 Urine Methadone Screen Not Detected (NotDetected) 03/20/20 19:54 Ur Propoxyphene Screen Not Detected (NotDetected) 03/20/20 19:54 Ur Barbiturates Screen Not Detected (NotDetected) 03/20/20 19:54 U Tricyclic Antidepress Not Detected (NotDetected) 03/20/20 19:54 Ur Phencyclidine Scrn Not Detected (NotDetected) 03/20/20 19:54 Ur Amphetamines Screen Not Detected (NotDetected) 03/20/20 19:54 U Methamphetamines Scrn Not Detected (NotDetected) 03/20/20 19:54 U Benzodiazepines Scrn Not Detected (NotDetected) 03/20/20 19:54 Urine Cocaine Screen Not Detected (NotDetected) 03/20/20 19:54 U Marijuana (THC) Screen Not Detected (NotDetected) 03/20/20 19:54 03/21/20 11:33 03/21/20 12:25
--- NOTE | 2020-03-21 15:49 | P.MDCNMH ---
History of Present Illness H&P Date: 03/21/20 Chief Complaint: Acute psychosis Patient is a 29-year-old female with a known history of psychiatric disorder/schizophrenia currently at [facility] was brought to the hospital by police as the patient was petitioned due to noncompliance with her psychiatric treatment. Patient otherwise denied any complaints of chest pain or shortness of breath. Denied any suicidal or homicidal ideation. Patient has been noncompliant with her medications. Denied any drug use. Denied any marijuana use or cigarette smoking recently. Patient is also 24 week and is following with Dr. Noe/FINANCIAL SOLUTIONS ADVISOR as outpatient. No complains of cough or sputum production. No fever no chills. Patient does have head lice infection which is being treated this time. Review of Systems Constitutional: Patient denies any fever or chills . No generalized weakness or weight loss. Abdomen: Patient denied nausea vomiting and diarrhea and abdominal pain. Cardiovascular: Patient denies any chest pain or short of breath no palpitations. Respiratory: patient denied any cough is from production. No shortness of breath Neurologic: Patient denied any numbness or tingling headache. Musculoskeletal: Patient denies any complaints of joint swelling or deformity. Skin: Negative Psychiatric: Negative Endocrine: No heat or cold intolerance. No recent weight gain. Genitourinary: No dysuria or hematuria. All other 14 point ROS negative except the above Past Medical History Past Medical History: No Reported History History of Any Multi-Drug Resistant Organisms: None Reported Past Surgical History: No Surgical Hx Reported Additional Past Surgical History / Comment(s): Myringotomy with tube placement Smoking Status: Current every day smoker - Past Family History Father Family Medical History: Hypertension Medications and Allergies Home Medications Medication Instructions Recorded Confirmed Type Paliperidone IM [Invega Sustenna] 234 mg IM Q28D 03/20/20 03/21/20 History Allergies Allergy/AdvReac Type Severity Reaction Status Date / Time bee pollen Allergy Unknown Unknown Verified 03/21/20 02:03 ciprofloxacin HCl Allergy Unknown Unknown Verified 03/21/20 02:03 [From Cipro] ciprofloxacin [From Cipro] Allergy Unknown Verified 03/21/20 02:03 Physical Exam Vitals: Vital Signs Temp Pulse Pulse Resp BP BP Pulse Ox 03/21/20 01:34 97.5 F L 91 15 114/60 100 05/13/20 19:22 98.5 F 124 H 20 127/81 98 Intake and Output 03/20/20 03/21/20 03/21/20 22:59 06:59 14:59 Other: Weight 84.414 kg 83.659 kg PHYSICAL EXAMINATION: Patient is lying in the bed comfortably, no acute distress, awake alert and oriented.. HEENT: Normocephalic. Neck is supple. Pupils reactive. Nostrils clear. Oral cavity is moist. Ears reveal no drainage. Neck reveals no JVD, carotid bruits, or thyromegaly. CHEST EXAMINATION: Trachea is central. Symmetrical expansion. Lung mcgee clear to auscultation and percussion. CARDIAC: Normal S1, S2 with no gallops. No murmurs ABDOMEN: Soft. Bowel sounds normal. No organomegaly. No abdominal bruits. Extremities: reveal no edema. No clubbing or cyanosis Neurologically awake, alert, oriented x3 with well-coordinated movements. No focal deficits noted Skin: No rash or skin lesions. Psychiatric: Coperative. Nonsuicidal Musculoskeletal: No joint swelling or deformity. Normal range of motion. Cranial Nerve Examination - Cranial Nerves Cranial Nerve I- Olfactory: Intact Cranial Nerve II- Optic: Intact Cranial Nerve III- Oculomotor: Intact Cranial Nerve IV- Trochlear: Intact Cranial Nerve V- Trigeminal: Intact Cranial Nerve - Abducens: Intact Cranial Nerve VII- Facial: Intact Cranial Nerve VIII- Auditory: Intact Cranial Nerve IX- Glossopharyngeal: Intact Cranial Nerve X- Vagus: Intact Cranial Nerve XI- Accessory: Intact Cranial Nerve XII- Hypoglossal: Intact Results Labs: Abnormal Lab Results - Last 24 Hours (Table) 03/20/20 Range/Units 19:54 Ur Leukocyte Esterase Trace H (Negative) Ur Squamous Epith Cells 8 H (0-4) /hpf Urine Bacteria Rare H (None) /hpf Urine Mucus Occasional H (None) /hpf Assessment and Plan Assessment: Acute psychosis NOS. Head lice infection status post treatment 1 permethrin. Schizophrenia. Currently on invega IM and Geodon Noncompliant medications 24 week intrauterine DVT prophylaxis. Early ambulation. Plan: Patient will be continued on current antipsychotic medications and also treated with permethrin for head lice infection. Continue with multivitamins and FINANCIAL SOLUTIONS ADVISOR was consulted. Further recommendations based on the clinical course. Nexium Thank you for your consult.
[2020-03-22 07:02] VITALS: BP 107/55; PULSE 76; RESP 16; TEMP 98.5
[2020-03-22 08:04] LABS: Basophils # (A) 0.1 k/uL (0-0.2); Basophils % (A) 1 %; Eosinophils # (A) 0.3 k/uL (0-0.7); Eosinophils % (A) 3 %; HCT 39.8 % (34.0-46.0); HGB 12.7 gm/dL (11.4-16.0); Lymphocytes # (A) 2.7 k/uL (1.0-4.8); Lymphocytes % (A) 29 %; MCH 32.2 pg (25.0-35.0); MCHC 31.9 g/dL (31.0-37.0); MCV 101.1 fL (80.0-100.0); Mean Platelet Volume 7.2; Monocytes # (A) 0.5 k/uL (0-1.0); Monocytes % (A) 5 %; Neutrophils # (A) 5.6 k/uL (1.3-7.7); Neutrophils % (A) 59 %; Platelet Count 261 k/uL (150-450); RBC 3.94 m/uL (3.80-5.40); RDW 12.2 % (11.5-15.5); WBC 9.4 k/uL (3.8-10.6)
[2020-03-22 08:17] LABS: ALT 9 U/L (4-34); AST 17 U/L (14-36); African American GFR (CKD) >90 (>60 ml/min/1.73 sqM); Albumin 3.1 g/dL (3.5-5.0); Alkaline Phosphatase 46 U/L (38-126); Anion Gap 4 mmol/L; Blood Urea Nitrogen 10 mg/dL (7-17); Calcium 8.4 mg/dL (8.4-10.2); Carbon Dioxide 23 mmol/L (22-30); Chloride 106 mmol/L (98-107); Cholesterol 194 mg/dL (<200); Glucose 75 mg/dL (74-99); HDL Cholesterol 106 mg/dL (40-60); LDL Cholesterol,Calculated 61 mg/dL (0-99); Non-African American GFR(CKD) >90 (>60 ml/min/1.73 sqM); Potassium 4.4 mmol/L (3.5-5.1); Sodium 133 mmol/L (137-145); Total Bilirubin 0.2 mg/dL (0.2-1.3); Total Protein 5.9 g/dL (6.3-8.2); Triglycerides 134 mg/dL (<150)
--- NOTE | 2020-03-22 10:19 | P.DS ---
Providers Date of admission: 03/20/20 23:23 Attending physician: Manolo Ceja MD Consults: 03/21/20 02:19 Consult Physician Routine Consulting Provider: Keily Powers Consult Reason/Comments: Medical H and P Do you want consulting provider notified?: Yes 03/21/20 08:30 Consult Physician Routine Consulting Provider: Lizette Whiteside Consult Reason/Comments: Patient 24 weeks Do you want consulting provider notified?: Yes Primary care physician: Ken Howe Charbal - Discharge Diagnosis(es) (1) Schizoaffective disorder Current Visit: Yes Status: Chronic Priority: High (2) Current Visit: No Status: Acute Priority: Low Hospital Course: She is a 29-year-old single female who has a history of a schizoaffective disorder. The police brought her to the emergency room and gave EPS nurse an envelope that purportedly contained a "pickup order". However, when the nurse or the envelope and only contained a copy of her continuing order that expires on 03/22/2020. She told the EPS nurse that the police brought her to the emergency room to have a doctor "see her" about her medications. The nurse reviewed records from [facility]. She missed her last injection of Invega on 03/14/2020. She told the nurse that "the temporary guardian or my trademark attorney called and told me I could either take the injection are not so I chose not to." She made what appeared to be delusional statements to his nurse about her ID have been stolen and this person is someone who had received her last injection. The EPS nurse spoke with Caridad on the ACT team who informed her that the patient was "supposed to be on a pickup order". Caridad stated that she has not been compliant with medication, care, refusing food from the ACT team and has no insight or her need for mental health treatment. We has several telephone conversations with [facility]. Apparently, they did not submit a request for a "pickup order" or submit a request to probate Court in a timely manner to continue her involuntary treatment order. The patient denied problems or concerns. She stated that she signed a voluntary admission in the emergency room yesterday. She admitted that she did not keep her appointment for her last Invega injection but denied that she had not followed through with care. She alleged that her last visit was "a week or 2" prior to admission. She denied feeling depressed or having thoughts of or suicide. She denied homicidal ideation. She denied persistent or sustained anxiety that she feels unable to control. She denied experiencing auditory hallucinations, ideas reference, thought insertion, thought broadcasting or thought control. She denied use of alcohol or drugs. Her UDS was negative for drugs of abuse. Her breath alcohol level was 0. We admitted her to the psychiatric unit voluntarily under the care of this keno writer. We provided a comprehensive biopsychosocial assessment. The multi site leasing consultant supervisor pipeline completed initial physical exam and medical history and did not diagnoses of major medical condition. We clarified her legal status and the date of her last Invega injection. We administered Invega Sustenna 234 mg on 03/21/2020. She was on 24-hour isolation after permethrin treatment and treatment for head lice. She posed no management problem and had no episodes of by mouth dyscontrol. She cooperated with treatment. At time of discharge she presented as a casually groomed young female with long dark hair. She made eye contact and attended the interview. She had no distinguishing features or prominent physical abnormalities. She had a blunted but bright facial expression. She showed no abnormality of psychomotor activity. Her speech was not spontaneous and had normal rate and rhythm. Her affect was blunted but stable and appropriate. She denied suicidal ideation, wishes or homicidal ideation. She denied feeling hopeless, helpless or worthless. She did not express ideas reference, paranoid ideation or delusional thoughts. Thinking was concrete but his associations were coherent and goal directed. She denied hallucinations did not appear to be responding to internal stimuli. The plan is for her to return to her former address, follow-up with [facility] and continue with Invega 234 mg IM every 28 days. [facility] to decide whether to repeat addition probate court for a continued involuntary treatment order. Patient Condition at Discharge: Stable Plan - Discharge Summary New Discharge Prescriptions: New Paliperidone IM [Invega Sustenna] 234 mg IM Q30D syringe Continue Paliperidone IM [Invega Sustenna] 234 mg IM Q28D #1 ml Discharge Medication List Paliperidone IM [Invega Sustenna] 234 mg IM Q28D #1 ml 03/22/20 [Rx] Paliperidone IM [Invega Sustenna] 234 mg IM Q30D syringe 03/22/20 [Rx] Follow up Appointment(s)/Referral(s): Rosemarie Rogers MD [Primary Care Provider] - 1-2 days Patient Instructions/Handouts: Suicide Prevention (DC) Activity/Diet/Wound Care/Special Instructions: Activity and diet as tolerated. Avoid the use of street drugs and alcohol. Take all medications as prescribed, when you are in need of refills contact your medical doctor or outpatient psychiatrist. Please go to all scheduled outpatient appointments for aftercare treatment. If symptoms return or worsen you can call the crisis line at and/ or return to the nearest emergency room for evaluation. Discharge Disposition: HOME SELF-CARE
[2020-03-22 16:26] LABS: Hemoglobin A1C 4.7 % (4.0-6.0)
== END 2020-03-22 15:19 | disposition home or self-care (01) | DRG 833 ==
LOC: EC 19:17 → EEVIPCON 23:23 → 3MHU 23:23
PROVIDERS: ADMIT Psychiatry & Neurology Psychiatry; ATTEND Psychiatry & Neurology Psychiatry
DX: O99.342 Other mental disorders complicating pregnancy, second trimester (principal); F25.0 Schizoaffective disorder, bipolar type; O99.512 Diseases of the respiratory system complicating pregnancy, second trimester; J45.909 Unspecified asthma, uncomplicated; O99.332 Smoking (tobacco) complicating pregnancy, second trimester; F17.210 Nicotine dependence, cigarettes, uncomplicated; O09.32 Supervision of pregnancy with insufficient antenatal care, second trimester; Z91.14 Patient's other noncompliance with medication regimen; Z91.19 Patient's noncompliance with other medical treatment and regimen; Z3A.24 24 weeks gestation of pregnancy; Z82.49 Family history of ischemic heart disease and other diseases of the circulatory system; B85.0 Pediculosis due to Pediculus humanus capitis; Z88.1 Allergy status to other antibiotic agents; Z91.030 Bee allergy status
CPT/HCPCS: 80053; 80061; 80306; 81001; 81025; 82075; 83036; 84443; 85025; 99285

== ENCOUNTER 2020-03-22 20:38 | Emergency (ER) | payer MEDICARE, MEDICAID ==
[2020-03-22 21:42] LABS: Amphetamine Screen,Urine Not Detected (NotDetected); Barbiturate Screen,Urine Not Detected (NotDetected); Benzodiazepines Screen,Urine Not Detected (NotDetected); Cocaine Screen,Urine Not Detected (NotDetected); Methadone Screen, Urine Not Detected (NotDetected); Opiate Screen,Urine Not Detected (NotDetected); Oxycodone Screen, Urine Not Detected (NotDetected); Phencyclidine Screen,Urine Not Detected (NotDetected); Tricyclic Antidepressant,Urine Not Detected (NotDetected); Urn Cannabinoid Scrn Not Detected (NotDetected)
--- NOTE | 2020-03-22 23:11 | ED ---
Psych HPI - General Source: patient, RN notes reviewed Mode of arrival: ambulatory - History of Present Illness MD Complaint: other <Tre Booker - Last Filed: 03/22/20 23:11> <Jadon Meredith - Last Filed: 03/23/20 12:55> - General Chief Complaint: Psychiatric Symptoms Stated Complaint: Petition Time Seen by Provider: 03/22/20 21:00 - History of Present Illness Initial Comments: This is a 29-year-old female history of schizophrenia who was brought in by police and petitioned today. She's been petitioned by [facility] apparently. She denies any problems such as suicidal thoughts or ideation she denies any complaints of any pain fevers chills sweats or other symptoms that she is not sure why she is here other than she does realize she is here in petition her petition she has impaired judgment and likely stay for any treatment. Patient currently is and doesn't want to discuss care. Resistant to all treatment offered. She apparently is demonstrating some suspicious behavior. She apparently has had head lice for the past 2 months also. (Tre Booker) - Related Data Previous Rx's Medication Instructions Recorded Paliperidone IM [Invega Sustenna] 234 mg IM Q28D #1 ml 03/22/20 Allergies Allergy/AdvReac Type Severity Reaction Status Date / Time bee pollen Allergy Unknown Unknown Verified 03/22/20 21:52 ciprofloxacin HCl Allergy Unknown Unknown Verified 03/22/20 21:52 [From Cipro] ciprofloxacin [From Cipro] Allergy Unknown Verified 03/22/20 21:52 Review of Systems ROS Other: All systems not noted in ROS Statement are negative. <Tre Booker - Last Filed: 03/22/20 23:11> ROS Other: All systems not noted in ROS Statement are negative. <Jadon Meredith - Last Filed: 03/23/20 12:55> ROS Statement: Those systems with pertinent positive or pertinent negative responses have been documented in the HPI. Past Medical History Past Medical History: No Reported History History of Any Multi-Drug Resistant Organisms: None Reported Past Surgical History: No Surgical Hx Reported Additional Past Surgical History / Comment(s): Myringotomy with tube placement Past Psychological History: ADD/ADHD, Anxiety, Depression, Schizoaffective Disorder Smoking Status: Current every day smoker Past Alcohol Use History: None Reported Past Drug Use History: None Reported - Past Family History Father Family Medical History: Hypertension <Tre Booker Last Filed: 03/22/20 23:11> General Exam Limitations: no limitations General appearance: alert, in no apparent distress Head exam: Present: atraumatic, normocephalic, normal inspection Eye exam: Present: normal appearance, PERRL, EOMI. Absent: scleral icterus, conjunctival injection, periorbital swelling ENT exam: Present: normal exam, mucous membranes moist Neck exam: Present: normal inspection. Absent: tenderness, meningismus, lymph adenopathy Respiratory exam: Present: normal lung sounds bilaterally. Absent: respiratory distress, wheezes, rales, rhonchi, stridor Cardiovascular Exam: Present: regular rate, normal rhythm, normal heart sounds. Absent: systolic murmur, diastolic murmur, rubs, gallop, clicks GI/Abdominal exam: Present: soft, normal bowel sounds. Absent: distended, tenderness, guarding, rebound, rigid Extremities exam: Present: normal inspection, full ROM, normal capillary refill. Absent: tenderness, pedal edema, joint swelling, calf tenderness Back exam: Present: normal inspection Neurological exam: Present: alert, oriented X3, CN II-XII intact Psychiatric exam: Present: normal mood, flat affect. Absent: suicidal ideation Skin exam: Present: warm, dry, intact, normal color. Absent: rash <Tre Booker - Lenard Filed: 03/22/20 23:11> - General Exam Comments Initial Comments: This is a well-developed well-nourished awake alert oriented 3 female (Tre Booker) Course <Tre Booker - Last Filed: 03/22/20 23:11> Vital Signs 03/22/20 03/23/20 03/23/20 20:44 01:08 06:47 Temperature 97.8 F 98.2 F 98.7 F Pulse Rate 115 H 83 83 Respiratory 18 16 16 Rate Blood Pressure 118/77 120/75 97/54 O2 Sat by Pulse 98 94 L 98 Oximetry - Reevaluation(s) Reevaluation #1: 03/22/20 23:11 Review the material presented to be a cord and petitioned. Case will be endorsed to Dr. Corrigan at her shift change pending EPS evaluation (Tre Booker) Medical Decision Making <Jadon Meredith Last Filed: 03/23/20 12:55> - Medical Decision Making Patient seen by mental health services with plan for discharge. Patient reevaluated. Patient denies suicidal ideation and does contract for safety. (Jadon Meredith) - Lab Data Lab Results 03/22/20 Range/Units 21:15 Urine Opiates Screen Not Detected (NotDetected) Ur Oxycodone Screen Not Detected (NotDetected) Urine Methadone Screen Not Detected (NotDetected) Ur Propoxyphene Screen Not Detected (NotDetected) Ur Barbiturates Screen Not Detected (NotDetected) U Tricyclic Antidepress Not Detected (NotDetected) Ur Phencyclidine Scrn Not Detected (NotDetected) Ur Amphetamines Screen Not Detected (NotDetected) U Methamphetamines Scrn Not Detected (NotDetected) U Benzodiazepines Scrn Not Detected (NotDetected) Urine Cocaine Screen Not Detected (NotDetected) U Marijuana (THC) Screen Not Detected (NotDetected) Disposition <Tre Booker - Last Filed: 03/22/20 23:11> Is patient prescribed a controlled substance at d/c from ED?: No Time of Disposition: 12:55 <Jadon Meredith - Last Filed: 03/23/20 12:55> Clinical Impression: Schizoaffective disorder Disposition: HOME SELF-CARE Condition: Stable Instructions (If sedation given, give patient instructions): Schizoaffective Disorder (ED) Additional Instructions: Discharge to [facility]. Please comply with care and treatment. Follow-up with mental health as directed. Please follow-up with primary care physician in the next couple days for recheck. Return for thoughts of self- harm, worsening symptoms or other concerns. Referrals: Rosemarie Rogers MD [Primary Care Provider] - 1-2 days
[2020-03-23 01:09] VITALS: PULSE 83; RESP 16
[2020-03-23 07:10] VITALS: BP 97/54; TEMP 98.7
== END 2020-03-23 13:11 | disposition home or self-care (01) ==
LOC: EC 20:38
DX: F25.9 Schizoaffective disorder, unspecified (principal); F17.200 Nicotine dependence, unspecified, uncomplicated; Z88.1 Allergy status to other antibiotic agents; Z91.030 Bee allergy status
CPT/HCPCS: 80306; 82075; 99284

== ENCOUNTER 2020-04-05 15:52 | Inpatient (IN) | payer MEDICARE, MEDICAID ==
[2020-04-05 17:28] LABS: Appearance,Urine Clear (Clear); Bilirubin,Urine Negative (Negative); Blood,Urine Negative (Negative); Color,Urine Light Yellow; Glucose,Urine (UA) Negative (Negative); Ketones,Urine Negative (Negative); Leukocyte Esterase,Urine Negative (Negative); Nitrite,Urine Negative (Negative); PH, Urine 6.5 (5.0-8.0); Protein,Urine Negative (Negative); Specific Gravity,Urine 1.003 (1.001-1.035); Urobilinogen,Urine <2.0 mg/dL (<2.0)
[2020-04-05 17:37] LABS: Amphetamine Screen,Urine Not Detected (NotDetected); Barbiturate Screen,Urine Not Detected (NotDetected); Benzodiazepines Screen,Urine Not Detected (NotDetected); Cocaine Screen,Urine Not Detected (NotDetected); Methadone Screen, Urine Not Detected (NotDetected); Opiate Screen,Urine Not Detected (NotDetected); Oxycodone Screen, Urine Not Detected (NotDetected); Phencyclidine Screen,Urine Not Detected (NotDetected); Tricyclic Antidepressant,Urine Not Detected (NotDetected); Urn Cannabinoid Scrn Not Detected (NotDetected)
--- NOTE | 2020-04-05 20:41 | ED ---
General Adult HPI - General Chief complaint: Psychiatric Symptoms Stated complaint: petition Source: police, RN notes reviewed Mode of arrival: ambulatory Limitations: altered mental status - History of Present Illness Initial comments: 29-year-old female presents to the emergency department for a chief complaint of psychosis. Patient is currently about 27 weeks according to last ultrasound performed on 01/19/2020. Patient has extensive psychiatric history including anxiety, depression, schizoaffective disorder. Patient presents today with police. Patient was petitioned by a wall covering installer. Patient has been hallucinating and has been delusional. She is apparently not taking her medications however will not admit to this. Patient is a poor historian and has tangential comments. Patient has no other complaints at this time including shortness of breath, chest pain, abdominal pain, nausea or vomiting, headache, or visual changes. - Related Data Previous Rx's Medication Instructions Recorded Paliperidone IM [Invega Sustenna] 234 mg IM Q28D #1 ml 03/22/20 Allergies Allergy/AdvReac Type Severity Reaction Status Date / Time bee pollen Allergy Unknown Unknown Verified 04/05/20 16:09 ciprofloxacin HCl Allergy Unknown Unknown Verified 04/05/20 16:09 [From Cipro] ciprofloxacin [From Cipro] Allergy Unknown Verified 04/05/20 16:09 Review of Systems ROS Statement: Those systems with pertinent positive or pertinent negative responses have been documented in the HPI. ROS Other: All systems not noted in ROS Statement are negative. Past Medical History Past Medical History: No Reported History History of Any Multi-Drug Resistant Organisms: None Reported Past Surgical History: No Surgical Hx Reported Additional Past Surgical History / Comment(s): Myringotomy with tube placement Past Psychological History: ADD/ADHD, Anxiety, Depression, Schizoaffective Disor skyler Smoking Status: Current every day smoker Past Alcohol Use History: None Reported Past Drug Use History: None Reported - Past Family History Father Family Medical History: Hypertension General Exam Limitations: altered mental status General appearance: alert, in no apparent distress (Sitting up in bed crosslegged and smiling interactive) Head exam: Present: atraumatic, normocephalic, normal inspection Eye exam: Present: normal appearance, PERRL, EOMI. Absent: scleral icterus, conjunctival injection, periorbital swelling ENT exam: Present: normal exam, mucous membranes moist Neck exam: Present: normal inspection, full ROM. Absent: tenderness, meningismus, lymphadenopathy Respiratory exam: Present: normal lung sounds bilaterally Cardiovascular Exam: Present: regular rate, normal rhythm, normal heart sounds. Absent: systolic murmur, diastolic murmur, rubs, gallop, clicks GI/Abdominal exam: Present: soft, normal bowel sounds, other (Gravid). Absent: distended, tenderness, guarding, rebound, rigid Neurological exam: Present: alert Psychiatric exam: Present: manic Course Vital Signs 04/05/20 04/05/20 16:06 20:37 Temperature 98.1 F Pulse Rate 72 88 Respiratory 18 18 Rate Blood Pressure 117/72 129/82 O2 Sat by Pulse 100 99 Oximetry Medical Decision Making - Medical Decision Making Patient was evaluated by EPS, recommending inpatient admission. Patient to be certed by Dr Zeng. - Lab Data Lab Results 04/05/20 04/05/20 Range/Units 16:40 17:14 Urine Color Light Yellow Urine Appearance Clear (Clear) Urine pH 6.5 (5.0-8.0) Ur Specific [place] 1.003 (1.001-1.035) Urine Protein Negative (Negative) Urine Glucose (UA) Negative (Negative) Urine Ketones Negative (Negative) Urine Blood Negative (Negative) Urine Nitrite Negative (Negative) Urine Bilirubin Negative (Negative) Urine Urobilinogen <2.0 (<2.0) mg/dL Ur Leukocyte Esterase Negative (Negative) Urine Opiates Screen Not Detected (NotDetected) Ur Oxycodone Screen Not Detected (NotDetected) Urine Methadone Screen Not Detected (NotDetected) Ur Propoxyphene Screen Not Detected (NotDetected) Ur Barbiturates Screen Not Detected (NotDetected) U Tricyclic Antidepress Not Detected (NotDetected) Ur Phencyclidine Scrn Not Detected (NotDetected) Ur Amphetamines Screen Not Detected (NotDetected) U Methamphetamines Scrn Not Detected (NotDetected) U Benzodiazepines Scrn Not Detected (NotDetected) Urine Cocaine Screen Not Detected (NotDetected) U Marijuana (THC) Screen Not Detected (NotDetected) Disposition Clinical Impression: Acute psychosis Disposition: TRANSFER TO PSYCH HOSP/UNIT Condition: Fair Is patient prescribed a controlled substance at d/c from ED?: No Referrals: Rosemarie Rogers MD [Primary Care Provider] - 1-2 days Time of Disposition: 20:41
[2020-04-05] MEDS ORDERED: PERMETHRIN 1% CREME RINSE 59 ML LIQUID TOPICAL ONE (22:00)
[2020-04-06] MEDS ORDERED: ACETAMINOPHEN TAB 325 MG TAB PO PRN (09:20)
[2020-04-06] MEDS ORDERED: MAG HYDROX/AL HYDROX/SIMETH 30 ML CUP PO PRN (09:20)
[2020-04-06] MEDS ORDERED: ZIPRASIDONE 20 MG VIAL IM PRN (09:20)
[2020-04-06] MEDS: PALIPERIDONE 6 MG TAB.ER.24 PO SCH (11:23)
--- NOTE | 2020-04-06 17:31 | P.HP ---
Psychiatric H&P - . H&P Date: 04/06/20 History & Physical: Allergies Allergy/AdvReac Type Severity Reaction Status Date / Time bee pollen Allergy Unknown Unknown Verified 04/05/20 16:09 ciprofloxacin HCl Allergy Unknown Unknown Verified 04/05/20 16:09 [From Cipro] ciprofloxacin [From Cipro] Allergy Unknown Verified 04/05/20 16:09 Vital Signs Temp 98.4 F 04/06/20 13:00 Pulse 80 04/06/20 11:46 Resp 20 04/06/20 11:46 BP 133/51 04/06/20 11:46 Pulse Ox 98 04/06/20 09:32 Intake & Output 04/05/20 04/06/20 04/06/20 18:59 06:59 18:59 Weight 85.729 kg Laboratory Last Values Urine Color Light Yellow 04/05/20 16:40 Urine Appearance Clear (Clear) 04/05/20 16:40 Urine pH 6.5 (5.0-8.0) 04/05/20 16:40 Ur Specific [place] 1.003 (1.001-1.035) 04/05/20 16:40 Urine Protein Negative (Negative) 04/05/20 16:40 Urine Glucose (UA) Negative (Negative) 04/05/20 16:40 Urine Ketones Negative (Negative) 04/05/20 16:40 Urine Blood Negative (Negative) 04/05/20 16:40 Urine Nitrite Negative (Negative) 04/05/20 16:40 Urine Bilirubin Negative (Negative) 04/05/20 16:40 Urine Urobilinogen <2.0 mg/dL (<2.0) 04/05/20 16:40 Ur Leukocyte Esterase Negative (Negative) 04/05/20 16:40 Urine Opiates Screen Not Detected (NotDetected) 04/05/20 17:14 Ur Oxycodone Screen Not Detected (NotDetected) 04/05/20 17:14 Urine Methadone Screen Not Detected (NotDetected) 04/05/20 17:14 Ur Propoxyphene Screen Not Detected (NotDetected) 04/05/20 17:14 Ur Barbiturates Screen Not Detected (NotDetected) 04/05/20 17:14 U Tricyclic Antidepress Not Detected (NotDetected) 04/05/20 17:14 Ur Phencyclidine Scrn Not Detected (NotDetected) 04/05/20 17:14 Ur Amphetamines Screen Not Detected (NotDetected) 04/05/20 17:14 U Methamphetamines Scrn Not Detected (NotDetected) 04/05/20 17:14 U Benzodiazepines Scrn Not Detected (NotDetected) 04/05/20 17:14 Urine Cocaine Screen Not Detected (NotDetected) 04/05/20 17:14 U Marijuana (THC) Screen Not Detected (NotDetected) 04/05/20 17:14 04/06/20 17:17 IDENTIFYING DATA: 29-year-old single female HPI: Patient admitted to the inpatient psychiatric unit [facility] on an involuntary basis. Petition was done by rn social work stating "Jenise is not willing to meet with Dr. Allen despite numerous attempts on the following dates by the team: 03/15/2020, 03/27/2020 and 04/04/2020. She believes that the senior living is starving her despite being offered food on a regular basis. She refuses to do head lice treatment despite continuing to have visible lice on her head. She is not willing to engage with her treatment team and states that she is "completely stable." She has identified that she has gotten opinions from other doctors the does not feel she has a mental illness. snf staff reports she is walking around the house whispering to herself at times in talking about kitchen utensils doing sexual things to her." The patient is seen in her room. She per staff history has been given treatment for head lice in the emergency room. She has limited insight into her need for treatment/admission. She makes reference to having rescheduled an appointment. PAST PSYCHIATRIC HISTORY: Has had multiple inpatient psychiatric admissions per chart history. Most recently had an admission earlier this month, impression has been schizoaffective disorder, bipolar type. She is currently on Invega 6 mg daily. She had a previous admission in January 2020 and at that time was on Invega Sustenna IM. Most recently she has been in treatment with [facility] per chart history. PMH: Per chart history she was at the time of her last admission which was approximately 2 weeks ago on was 24 weeks . Per chart history history of asthma. She has been treated for lice in the emergency room. Patient herself does not seem to verbalize any significant medical issues. She does make reference to wanting to see a family practitioner. ALLERGIES: Bee pollen, ciprofloxacin, MEDICATIONS: Tylenol when necessary, Maalox when necessary, inVega, Geodon when necessary CHEMICAL DEPENDENCY HISTORY: She does not report any drug or alcohol use, per chart history last admission assessment she denied history of substance use or substance use problems. FAMILY PSYCHIATRIC HISTORY: None known FAMILY CHEMICAL DEPENDENCY HISTORY: Unknown SOCIAL HISTORY: It sounds as if she most recently has been perhaps at the senior living. Per chart history she is single. Per chart history she graduated from high school. Per chart history she has been on Social Security disability. MENTAL STATUS EXAM: She is alert and overall cooperative with the interview. She does not display any significant agitation. Her thought processes are disorganized. When asked her mood, she asks for 3 options and then she chooses "okay." She does not verbalize any thoughts of harm to self or others. She does not verbalize any hallucinations. Her insight is limited. Judgment shows evidence of recent impairment. I do not note any significant issues with disorientation or memory disturbance. STRENGTHS/WEAKNESSES: Strengthsapparent good physical health; Weaknesseslimited insight, coping skills INTELLECTUAL FUNCTIONING: Average IMPRESSIONS: Schizoaffective disorder, bipolar type PLAN: Cliff is admitted to the inpatient psychiatric unit [facility] on an involuntary basis. She'll be placed on SP 15 minute precautions. Baseline laboratory workup with the patient and medical consultation will be ordered. She'll be maintained on invega current dose. We will monitor for any medication side effects and monitor her ongoing response to treatment. Monitor regarding medication compliance. Estimated length of stay is 5-7 days. Prognosis guarded.
--- NOTE | 2020-04-06 18:55 | CONS ---
CONSULTATION DATE OF SERVICE: 04/06/2020 REASON FOR CONSULTATION: Advice regarding nicotine dependence and other medical issues requested by psychiatry. HISTORY OF PRESENT ILLNESS: This 29-year-old woman with a past history of multiple medical problems including ADD, ADHD, anxiety, depression, schizoaffective disorder, being followed by Ken, was apparently in a half-way. The patient was taken to [facility] with complaints of psychosis. Patient apparently is about 27 weeks . The patient is seen by repeater chief in town. The patient would like to have a section per patient and is looking for a new doc according to her, but currently the patient is also in isolation. Patient apparently also had lice previously. The patient has some hallucinations also with delusions. There is no chest pain, palpitations, headache, loss of consciousness, nausea, diarrhea, fever, rigors, chills at this time. PAST MEDICAL: History of anxiety depression, schizoaffective disorder, history ADD/ADHD, nicotine dependence. HOME MEDICATIONS: Invega. ALLERGIES: BEE POLLEN and CIPRO. FAMILY HISTORY: History of hypertension in the family. SOCIAL HISTORY: History of smoking. No history of alcohol intake. REVIEW OF SYSTEMS: ENT No history of diminished hearing or vision. CARDIOVASCULAR No angina or palpitations. RESPIRATORY No cough, no hemoptysis. GI No nausea, vomiting, or diarrhea. As mentioned earlier. NERVOUS No numbness or weakness. ALLERGY/IMMUNOLOGY No asthma or hayfever. MUSCULOSKELETAL As mentioned earlier. HEMATOLOGY/ONCOLOGY Negative. ENDOCRINE No history of diabetes or hypothyroidism. SKIN Negative. CONSTITUTIONAL No history of fever or weight loss. PSYCHIATRY As mentioned earlier. PHYSICAL EXAMINATION: Alert and oriented x3. Pulse 60, blood pressure 103/61, respiration 18, temperature 98.1, pulse ox 98% on room air HEENT: Conjunctivae normal. Oral mucosa moist. NECK: No jugular venous distention. No lymph node enlargement. CARDIOVASCULAR: S1, S2. RESPIRATORY: Diminished breath sounds at the bases. No rhonchi, no crackles. ABDOMEN: Soft. 27 weeks . LEGS: No edema, no swelling. NERVOUS SYSTEM: Higher functions mentioned earlier. Cranial nerves 2-12 grossly intact. Eye movements are full. Jaw opens in midline. No facial deviation. Moves all four limbs. The power is 5 out of 5. No sensory abnormalities. Gait is normal. SKIN: No rash. JOINTS: No active deforming arthropathy. LABS: At this time shows the UA and drug screen are negative. ASSESSMENT: 1. Possible psychosis, for evaluation. 2. Twenty-seven week . 3. History of anxiety, depression. 4. History of ADD ADHD. 5. History of schizoaffective disorder. 6. Continued ongoing nicotine dependence. 7. FULL CODE. RECOMMENDATIONS AND DISCUSSION: In this 29-year-old woman who presented for psychiatric evaluation, at this time I recommend to continue current medications. The patient appears to be medically stable. I recommend basic labs and we will be happy to review any abnormal labs. Otherwise, patient will be asked to follow with Dr. Rogers closely after discharge and CHEMICAL PROCESS ENGINEER followup as recommended. The patient was already treated for lice, but we will continue to monitor. Thank you, Dr. Ceja, for letting us participate in the care of this patient. ADIS / MICHELL: [id number] /
[2020-04-07 08:24] LABS: ALT 9 U/L (4-34); AST 17 U/L (14-36); African American GFR (CKD) >90 (>60 ml/min/1.73 sqM); Albumin 2.9 g/dL (3.5-5.0); Alkaline Phosphatase 48 U/L (38-126); Anion Gap 3 mmol/L; Blood Urea Nitrogen 11 mg/dL (7-17); Calcium 8.3 mg/dL (8.4-10.2); Carbon Dioxide 23 mmol/L (22-30); Chloride 108 mmol/L (98-107); Cholesterol 172 mg/dL (<200); Glucose 81 mg/dL (74-99); HDL Cholesterol 97 mg/dL (40-60); LDL Cholesterol,Calculated 54 mg/dL (0-99); Non-African American GFR(CKD) >90 (>60 ml/min/1.73 sqM); Sodium 134 mmol/L (137-145); Total Bilirubin 0.1 mg/dL (0.2-1.3); Total Protein 5.6 g/dL (6.3-8.2); Triglycerides 104 mg/dL (<150)
[2020-04-07 08:27] LABS: Basophils % (A) 1 %; Eosinophils # (A) 0.1 k/uL (0-0.7); Eosinophils % (A) 2 %; HCT 36.6 % (34.0-46.0); Lymphocytes # (A) 2.3 k/uL (1.0-4.8); Lymphocytes % (A) 29 %; MCH 32.3 pg (25.0-35.0); MCHC 32.8 g/dL (31.0-37.0); MCV 98.6 fL (80.0-100.0); Mean Platelet Volume 7.2; Monocytes # (A) 0.4 k/uL (0-1.0); Monocytes % (A) 5 %; Neutrophils # (A) 4.7 k/uL (1.3-7.7); Neutrophils % (A) 60 %; Platelet Count 275 k/uL (150-450); RBC 3.72 m/uL (3.80-5.40); RDW 12.1 % (11.5-15.5); WBC 7.8 k/uL (3.8-10.6)
[2020-04-07] MEDS: PALIPERIDONE 6 MG TAB.ER.24 PO SCH (09:45)
--- NOTE | 2020-04-07 09:58 | P.OBCN ---
History of Present Illness Consult date: 04/07/20 Reason for consult: other () Chief complaint: Acute schizophrenia, 27 weeks History of present illness: The patient is a 29-year-old 3 para 200 to is known to my practice and has been seen in the office on 2 or 3 occasions for this . She did present late but has otherwise had an uncomplicated to this point. She has been admitted to the inpatient psychiatric unit for ongoing treatment of acute schizophrenia and noncompliance with taking medications. She denies any ongoing concerns reports normal activity. She denies contractions or any other concerns to include vaginal discharge, leaking of fluid, bleeding, etc. she has additionally been found to currently have head lice. Obstetrical history: 3 para 2 scissors or 22 term vaginal deliveries. She does not have possession of either child to my knowledge. Current statistics are listed in history of present illness. Laboratory workups are as indicated in the record which is noncontributory to this admission. Gynecologic history: Unremarkable. Review of Systems Review of systems is confined to history of present illness. Past Medical History Past Medical History: No Reported History History of Any Multi-Drug Resistant Organisms: None Reported Past Surgical History: No Surgical Hx Reported Additional Past Surgical History / Comment(s): Myringotomy with tube placement Past Psychological History: ADD/ADHD, Anxiety, Depression, Schizoaffective Disorder Smoking Status: Current every day smoker Past Alcohol Use History: None Reported Past Drug Use History: None Reported - Past Family History Father Family Medical History: Hypertension Medications and Allergies Home Medications Medication Instructions Recorded Confirmed Type Paliperidone IM [Invega Sustenna] 234 mg IM Q28D #1 ml 03/22/20 03/22/20 Rx Allergies Allergy/AdvReac Type Severity Reaction Status Date / Time bee pollen Allergy Unknown Unknown Verified 04/05/20 16:09 ciprofloxacin HCl Allergy Unknown Unknown Verified 04/05/20 16:09 [From Cipro] ciprofloxacin [From Cipro] Allergy Unknown Verified 04/05/20 16:09 Exam Vital Signs Temp Pulse Resp BP 04/06/20 18:12 98.5 F 04/06/20 13:00 98.4 F 04/06/20 11:46 80 20 133/51 Intake and Output 04/06/20 04/07/20 04/07/20 22:59 06:59 14:59 Intake Total 1750 Balance 1750 Intake: Oral 1750 Physical examination is deferred as it is not indicated at this time. Results Result Diagrams: 04/07/20 07:48 04/07/20 07:48 Abnormal Lab Results - Last 24 Hours (Table) 04/07/20 04/07/20 Range/Units 07:48 07:48 RBC 3.72 L (3.80-5.40) m/uL Sodium 134 L (137-145) mmol/L Chloride 108 H (98-107) mmol/L Calcium 8.3 L (8.4-10.2) mg/dL Total Bilirubin 0.1 L (0.2-1.3) mg/dL Total Protein 5.6 L (6.3-8.2) g/dL Albumin 2.9 L (3.5-5.0) g/dL HDL Cholesterol 97 H (40-60) mg/dL Assessment and Plan (1) Current Visit: No Status: Acute Priority: Low Code(s): Z33.1 - STATE, INCIDENTAL SNOMED Code(s): 54667346 (2) Psychosis Current Visit: No Status: Acute Code(s): F29 - UNSP PSYCHOSIS NOT DUE TO A SUBSTANCE OR KNOWN PHYSIOL COND SNOMED Code(s): 31261447 Plan: She currently is experiencing no concerns and therefore requires only daily Doppler of heart tones. Should her stay be extended, the heart tones could be extended to the level of a nonstress test after 28 weeks. In the meantime, I have strongly encouraged her to continue to take her medications on a regular basis. Her case of head lice should be treated while an inpatient as well.
[2020-04-07] MEDS ORDERED: PERMETHRIN 1% CREME RINSE 59 ML LIQUID TOPICAL ONE (16:23)
--- NOTE | 2020-04-07 17:17 | P.PN ---
Progress Note - Text Progress Note Date: 04/07/20 Interval history: Patient is seen in cross coverage again today with female staff present. She does relate that she is eating well. She does not verbalize any adverse psychotropic medication side effects. Mental status exam: She is alert and cooperative with the interview. Her thought processes do show some disorganization. She describes her mood as "upbeat." She does not verbalize any thoughts of harm to self or others she does not display any agitation. Her affect does show some range. Plan: Patient will be maintained on current psychotropic medication regimen. Continue to monitor regarding any medicines patient side effects and monitor her ongoing response to treatment.
[2020-04-08] MEDS: PALIPERIDONE 6 MG TAB.ER.24 PO SCH (10:05)
--- NOTE | 2020-04-08 13:52 | P.PN ---
Progress Note - Text Progress Note Date: 04/08/20 Clinical Problems: Schizoaffective disorder bipolar type, rule out schizophrenia, Interim history: I reviewed the medical record, interviewed the patient and discuss her treatment and treatment plan during team meeting. She is well known to this unit from her prior admissions. She was just discharged on 03/22/2020. She presented to unit involuntarily With a history of noncompliance, paranoia, agitation and auditory hallucinations. The EPS nurse described her as extremely disorganized and unable to be redirected to questions. Her speech was loud with the talita of a officer. She was angry that she was not allowed to go outside the assisted and expressed the belief that her belongings have been tampered. On admission the unit she required 2 treatments with 1% premetherin cream for lice. Since her admission to the unit she has been compliant with oral medic ation, Invega 6 mg daily. She is posed no management problems and had no episodes of behavioral dyscontrol. OB consult appreciated. She was unable to explain the reason for this hospitalization. She talked tangentially about problems in the foster home. She denied current problems or concerns. Mental status exam: She presented as a casually groomed 29-year-old female who was pleasant on approach. She made eye contact and attended the interview. She had a blunted but bright facial expression. She has slight psychomotor retardation but no abnormal involuntary movements. Her speech was not spontaneous and had normal rate and rhythm. Her affect was blunted but stable and appropriate. She denied suicidal ideation and wishes. She denied homicidal ideation. She denied feeling hopeless, helpless or worthless. She did not express clear ideas reference or paranoid ideation. Her thinking was very concrete but her associations appeared coherent and logical. She den ied hallucinations and did not appear to be responding to internal stimuli. Assessment: She is chronically and severely mentally ill and her illness does not appear well-controlled with monthly Invega. We discussed alternative treatments including Haldol and Haldol Decanoate. She appeared to have difficulty understanding my explanation of the reason for the change and had difficulty making decision. Plan: Continue inpatient hospitalization. Safety precautions. Taper then discontinue Invega. Begin Haldol 5 mg daily and titrated according to clinical response and tolerance. Once we establish tolerance to Haldol begin Haldol decanoate. Evaluate clinical status response to treatment daily basis.
[2020-04-09] MEDS ORDERED: PALIPERIDONE 3 MG TAB.ER.24 PO SCH (09:00)
[2020-04-09] MEDS: HALOPERIDOL 5 MG TAB PO SCH (09:11)
--- NOTE | 2020-04-09 13:59 | P.PN ---
Progress Note - Text Progress Note Date: 04/09/20 Clinical Problems: Schizoaffective disorder bipolar type, rule out schizophrenia, Interim history: I reviewed the medical record, interviewed the patient and discuss her treatment and treatment plan during team meeting. Her only concern was discharged and she expressed desire to return "home". We talked about the current treatment plan and she replied that she would prefer natural treatment with "green stuff" or CBD oil. I explained that neither indicated for her condition and may be detrimental to her baby. She may return to the [facility] home after we completed the transition from Invega to Haldol and start Haldol Decanoate. Mental status exam: She presented as a casually groomed 29-year-old female who was pleasant on approach. She made eye contact and attended the interview. She had a blunted but bright facial expression. She has slight psychomotor retardation but no abnormal involuntary movements. Her speech was not spontaneous and had normal rate and rhythm. Her affect was blunted but stable and appropriate. She denied suicidal ideation and wishes. She denied homicidal ideation. She denied feeling hopeless, helpless or worthless. She did not express clear ideas reference or paranoid ideation. Her thinking was very concrete but her associations appeared coherent and logical. She denied hallucinations and did not appear to be responding to internal stimuli. Assessment: She has had no adverse reactions to the initial dose of Haldol. Plan: Continue inpatient hospitalization. Safety precautions. Taper then discontinue Invega. Continue Haldol 5 mg daily and titrated according to clinical response and tolerance. Once we establish tolerance to Haldol begin Haldol decanoate. Evaluate clinical status response to treatment daily basis.
[2020-04-10] MEDS: HALOPERIDOL 5 MG TAB PO SCH (08:45)
--- NOTE | 2020-04-10 13:11 | P.PN ---
Progress Note - Text Progress Note Date: 04/10/20 Clinical Problems: Schizoaffective disorder bipolar type, rule out schizophrenia, Interim history: I reviewed the medical record, interviewed the patient and discuss her treatment and treatment plan during team meeting. She denied problems or concerns other than wishing to be discharged. She denied side effects to Haldol and expressed willingness continue with Haldol as well as Haldol decanoate. She spends most of her time alone in a room incident response consultant interacts with staff or peers. She seldom attends therapeutic groups and activities. She has had no episodes of behavioral dyscontrol. Mental status exam: She presented as a casually groomed 29-year-old female dressed in a hospital gown. She made eye contact and attended the interview. She had a blunted but bright facial expression. She has slight psychomotor retardation but no abnormal involuntary movements. Her speech was not spontaneous and had normal rate and rhythm. Her affect was blunted but stable and appropriate. She denied suicidal ideation and wishes. She denied homicidal ideation. She denied feeling hopeless, helpless or worthless. She did not express clear ideas reference or paranoid ideation. Her thinking was very concrete but her associations appeared coherent and logical. She denied hallucinations and did not appear to be responding to internal stimuli. Assessment: She has had no episodes of behavioral dyscontrol, paranoia, agitation or aggressiveness since she was admitted to the unit. Plan: Continue inpatient hospitalization. Safety precautions. Discontinue Invega. Continue Haldol 5 mg daily and titrated according to clinical response and tolerance. Begin Haldol Decanoate 100 mg IM every 28 days on 04/11/2020. Evaluate clinical status response to treatment daily basis.
[2020-04-11] MEDS ORDERED: HALOPERIDOL DECANOATE 100 MG/ML 1 ML VIAL IM SCH (09:00)
[2020-04-11] MEDS: HALOPERIDOL 5 MG TAB PO SCH (09:03)
--- NOTE | 2020-04-11 14:10 | P.PN ---
Progress Note - Text Progress Note Date: 04/11/20 Clinical Problems: Schizoaffective disorder bipolar type, rule out schizophrenia, Interim history: I reviewed the medical record, interviewed the patient and discuss her treatment and treatment plan during team meeting. She was more distraught than on previous encounters. She cried during the interview. She complained about the length this hospitalization, the frequent hospitalizations and what she perceives as unfair services proactively mental health. She denied the allegations in the petition brought her to the hospital. She receives her first injection of Haldol Decanoate this morning. She denied side effects or adverse reaction to Haldol. Mental status exam: She presented as a casually groomed 29-year-old female dressed in a hospital gown. She made eye contact and attended the interview. She had a sad facial expression. She has slight psychomotor re tardation but no abnormal involuntary movements. Her speech was not spontaneous and had normal rate and rhythm. Her affect was depressed. She denied suicidal ideation and wishes. She denied homicidal ideation. She denied feeling hopeless, helpless or worthless. She did not express clear ideas reference or paranoid ideation. Her thinking was very concrete but her associations appeared coherent and logical. She denied hallucinations and did not appear to be responding to internal stimuli. Assessment: She is depressed over a lack of control of her life. She has had no episodes of behavioral dyscontrol, paranoia, agitation or aggressiveness since she was admitted to the unit. Plan: Continue inpatient hospitalization. Safety precautions. Continue Haldol 5 mg daily and titrated according to clinical response and tolerance. Continue Haldol Decanoate 100 mg IM every 28 days. Evaluate clinical status response to treatment daily basis.
[2020-04-12] MEDS: HALOPERIDOL 5 MG TAB PO SCH (09:07)
--- NOTE | 2020-04-12 12:54 | P.PN ---
Progress Note - Text Progress Note Date: 04/12/20 Clinical Problems: Schizoaffective disorder bipolar type, rule out schizophrenia, Interim history: I reviewed the medical record, interviewed the patient and discuss her treatment and treatment plan during team meeting. She denied problems or concerns. Only concern remains discharge. She was less distressed and preoccupied about discharge yesterday. She denied experiencing auditory, visual or olfactory hallucinations, ideas reference, thought insertion, thought broadcasting or thought control. She denied side effects to Haldol. She attends therapeutic groups and activities intermittently. She spends most of time alone and seldom initiates interaction with staff or peers. She has had no episodes of behavioral dyscontrol. The manager social services confirmed that she return to [facility] after discharge. Mental status exam: She presented as a casually groomed 29-year-old female dressed in a hospital gown. She made eye contact and attended the interview. She had a sad facial expression. She had no abnormality of psychomotor activity and no abnormal involuntary movements. Her speech was spontaneous with normal rate and rhythm. Her affect was blunted but bright. She denied suicidal ideation and wishes. She denied homicidal ideation. She denied feeling hopeless, helpless or worthless. She did not express clear ideas reference or paranoid ideation. Her thinking was very concrete but her associations appeared coherent and logical. She denied hallucinations and did not appear to be responding to internal stimuli. Assessment: She is not experiencing side effects to Haldol. Plan: Continue inpatient hospitalization. Safety precautions. Continue Haldol 5 mg daily and titrated according to clinical response and tolerance. Continue Haldol Decanoate 100 mg IM every 28 days. Evaluate clinical status response to treatment daily basis.
[2020-04-12 15:02] VITALS: BMI 28.7
[2020-04-13 07:03] VITALS: RESP 16
[2020-04-13] MEDS: HALOPERIDOL 5 MG TAB PO SCH (09:20)
--- NOTE | 2020-04-13 17:17 | P.PN ---
Progress Note - Text Progress Note Date: 04/13/20 Clinical Problems: Schizoaffective disorder bipolar type, rule out schizophrenia, Interim history: I reviewed the medical record and interviewed the patient. She denied problems. Her only concern remains discharge. She denied experiencing auditory, visual or olfactory hallucinations, ideas reference, thought insertion, thought broadcasting or thought control. She denied feeling paranoid, suspicious or frightened. She denied side effects to Haldol. She denied a problem with sleep or appetite. She attend 1 therapeutic groups yesterday. She spends most of time alone and seldom initiates interaction with staff or peers. She has had no episodes of behavioral dyscontrol. The medical social consultant confirmed that she return to [facility] after discharge. Mental status exam: She presented as a casually groomed 29-year-old female dressed in a hospital gown. She made eye contact and attended the interview. She had a right facial expression. She had no abnormality of psychomotor activity and no abnormal involuntary movements. Her speech was spontaneous with normal rate and rhythm. She had poverty of content. Her affect was bright. She denied suicidal ideation and wishes. She denied homicidal ideation. She denied feeling hopeless, helpless or worthless. She did not express ideas reference or paranoid ideation. Her thinking was very concrete but her associations appeared coherent and logical. She denied hallucinations and did not appear to be responding to internal stimuli. Assessment: She is not experiencing side effects to Haldol. She has no apparent symptoms of psychosis including hallucinations, paranoia or thought disturbances. Plan: Plan to discharge to [facility] on 04/15/2020. Safety precautions. Continue Haldol 5 mg daily and titrated according to clinical response and tolerance. Continue Haldol Decanoate 100 mg IM every 28 days. Evaluate clinical status response to treatment daily basis.
[2020-04-14 07:00] VITALS: BP 90/50; PULSE 51
[2020-04-14] MEDS: HALOPERIDOL 5 MG TAB PO SCH (09:18)
--- NOTE | 2020-04-14 10:02 | P.PN ---
Progress Note - Text Progress Note Date: 04/14/20 Clinical Problems: Schizoaffective disorder bipolar type, rule out schizophrenia, Interim history: I reviewed the medical record and interviewed the patient. She denied problems. Her only concern remains discharge. She denied that she is experiencing psychotic symptoms She denied side effects to Haldol. She denied a problem with sleep or appetite. She did not attend therapeutic groups or activities yesterday. She spends most of time alone and seldom initiates interaction with staff or peers. She has had no episodes of behavioral dyscontrol. discharge. Mental status exam: She presented as a casually groomed 29-year-old female dressed in a hospital gown. She made eye contact and attended the interview. She had a right facial expression. She had no abnormality of psychomotor activity and no abnormal involuntary movements. Her speech was spontaneous with normal rate and rhythm. She had poverty of content. Her affect was bright. She denied suicidal ideation and wishes. She denied homicidal ideation. She denied feeling hopeless, helpless or worthless. She did not express ideas reference or paranoid ideation. Her thinking was very concrete but her associations appeared coherent and logical. She denied hallucinations and did not appear to be responding to internal stimuli. Assessment: She is not experiencing side effects to Haldol. She has no apparent symptoms of psychosis including hallucinations, paranoia or thought disturbances. Plan: Plan to discharge to [facility] on 04/15/2020. Safety precautions. Continue Haldol 5 mg daily and titrated according to clinical response and tolerance. Continue Haldol Decanoate 100 mg IM every 28 days. Evaluate clinical status response to treatment daily basis.
[2020-04-15] MEDS: HALOPERIDOL 5 MG TAB PO SCH (08:49)
--- NOTE | 2020-04-15 11:33 | P.DS ---
Providers Date of admission: 04/06/20 09:16 Attending physician: Manolo Ceja MD Consults: 04/06/20 09:27 Consult Physician Routine Consulting Provider: Keily Powers Consult Reason/Comments: H and P Do you want consulting provider notified?: Yes 04/06/20 18:14 Consult Physician Routine Consulting Provider: Sreedhar Smith Reason/Comments: monitoring Do you want consulting provider notified?: Already Contacted Primary care physician: Ken Houston - Discharge Diagnosis(es) (1) Schizoaffective disorder, bipolar type Current Visit: No Status: Chronic Priority: High (2) Nicotine dependence Current Visit: No Status: Acute Priority: Medium (3) Current Visit: No Status: Acute Priority: Low Hospital Course: She is a 29-year-old single female who is 24 weeks . She was readmitted to the unit voluntarily with history of refusing to meet with her men [place] health professionals, impaired nutrition and impaired self care. On presentation she was once again infested with lice. At her care home she was walking around the house whispering to herself and talking about kitchen utensils doing sexual things to her. She was just discharged from unit on 03/22/2020 with paliperidone 234 mg IM monthly. I spoke to her outpatient psychiatrist who expressed concern about her overall functioning and multiple brief psychiatric hospitalizations. We admitted her psychiatric unit on this care of this junior underwriter. We provided a comprehensive biopsychosocial assessment. The infrastructure consultant automotive machinist apprentice completed the initial physical exam and history. We also consult dictated DOCUMENT REVIEW SPECIALIST. The manager net had no concerns about her and only recommended Doppler heart tone. A Doppler heart test showed the fetus of a heart rate in the 150s. Due to the apparent poor response to long-acting paliperidone change her medications to Haldol beginning at 5 mg per day. Once reestablish tolerance and we administered an injection of 100 mg on 04/11/2020. We treated the head lice with 1% Permethrin cream rinse and the nurses her and calling he lice and eggs from her. She posed no management problem and had no episodes of behavioral dyscontrol. She intermittently attended therapeutic groups and activities. She spent most of time in her room. She did not initiate contact with staff or peers. The time of discharge she presented as a casually groomed 29-year-old female who was pleasant on approach. She made eye contact and attended the interview. She had no distinguishing features or prominent physical abnormalities. She had a bright facial expression. She showed no abnormality of psychomotor activity. Her speech was slow but normal rate and rhythm. She had no articulation difficulties. Her affect was blunted but bright and stable. She denied suicidal ideation or wishes. She denied feeling hopeless, helpless or worthless. She did not express ideas reference, paranoid ideation or delusions. Her thinking is very concrete but her associations were coherent and logical. She denied hallucinations and did not appear to be responding to internal stimuli. Recommendations continue oral Haldol 5 mg daily until her third Haldol decanoate injection. She scheduled for the next Haldol Decanoate 100 mg on 05/09/2020. Patient Condition at Discharge: Stable Plan - Discharge Summary New Discharge Prescriptions: New Haloperidol [Haldol] 5 mg PO DAILY #30 tab Discontinued Paliperidone IM [Invega Sustenna] 234 mg IM Q28D #1 ml Discharge Medication List Haloperidol [Haldol] 5 mg PO DAILY #30 tab 04/15/20 [Rx] Follow up Appointment(s)/Referral(s): [facility] [Outside] - 04/22/20 3:30 pm (Alicia is scheduled with Dr Allen on 04-22-20 @ 3:30 at [facility] on [address]. ) Rosemarie Rogers MD [Primary Care Provider] - 1-2 days Discharge Disposition: HOME SELF-CARE
[2020-04-15 13:15] VITALS: TEMP 98.1
== END 2020-04-15 14:30 | disposition home or self-care (01) | DRG 832 ==
LOC: EC 15:52 → 3MHU 04-06 09:16
PROVIDERS: ADMIT Psychiatry & Neurology Psychiatry; ATTEND Psychiatry & Neurology Psychiatry
DX: O99.342 Other mental disorders complicating pregnancy, second trimester (principal); O98.812 Other maternal infectious and parasitic diseases complicating pregnancy, second trimester; F25.0 Schizoaffective disorder, bipolar type; B85.2 Pediculosis, unspecified; T50.906A Underdosing of unspecified drugs, medicaments and biological substances, initial encounter; Z91.128 Patient's intentional underdosing of medication regimen for other reason; O99.332 Smoking (tobacco) complicating pregnancy, second trimester; F17.200 Nicotine dependence, unspecified, uncomplicated; O99.512 Diseases of the respiratory system complicating pregnancy, second trimester; J45.909 Unspecified asthma, uncomplicated; Z3A.27 27 weeks gestation of pregnancy; F41.9 Anxiety disorder, unspecified; F90.9 Attention-deficit hyperactivity disorder, unspecified type; Y63.6 Underdosing and nonadministration of necessary drug, medicament or biological substance; Z79.899 Other long term (current) drug therapy; Z98.890 Other specified postprocedural states; Z88.1 Allergy status to other antibiotic agents; Z91.030 Bee allergy status; Z82.49 Family history of ischemic heart disease and other diseases of the circulatory system
CPT/HCPCS: 80053; 80061; 80306; 81003; 82075; 83036; 84443; 85025; 99285

== ENCOUNTER 2020-05-22 15:45 | Inpatient (IN) | payer MEDICARE, MEDICAID ==
[2020-05-22 17:00] LABS: Appearance,Urine Cloudy (Clear); Bacteria,Urine Occasional /hpf; Bilirubin,Urine Negative (Negative); Blood,Urine Negative (Negative); Color,Urine Yellow; Glucose,Urine (UA) Negative (Negative); Hyaline Casts,Urine 10 /lpf (0-2); Ketones,Urine 1+ (Negative); Leukocyte Esterase,Urine Large (Negative); Mucus,Urine Rare /hpf; Nitrite,Urine Negative (Negative); Protein,Urine 2+ (Negative); RBC,Urine 1 /hpf (0-5); Specific Gravity,Urine 1.015 (1.001-1.035); Squamous Epithelial Cell,Urine 41 /hpf (0-4); Urobilinogen,Urine <2.0 mg/dL (<2.0); WBC,Urine 79 /hpf (0-5)
[2020-05-22 17:07] LABS: Amphetamine Screen,Urine Not Detected (NotDetected); Barbiturate Screen,Urine Not Detected (NotDetected); Benzodiazepines Screen,Urine Not Detected (NotDetected); Cocaine Screen,Urine Not Detected (NotDetected); Methadone Screen, Urine Not Detected (NotDetected); Opiate Screen,Urine Not Detected (NotDetected); Oxycodone Screen, Urine Not Detected (NotDetected); Phencyclidine Screen,Urine Not Detected (NotDetected); Tricyclic Antidepressant,Urine Not Detected (NotDetected); Urn Cannabinoid Scrn Not Detected (NotDetected)
--- NOTE | 2020-05-22 18:16 | ED ---
Psych HPI <Jones Trujillo - Last Filed: 05/23/20 14:17> - General Source: patient, police Mode of arrival: wheelchair <Macie Sanchez - Last Filed: 05/26/20 14:29> - General Chief Complaint: Psychiatric Symptoms Stated Complaint: Court Order Time Seen by Provider: 05/22/20 16:10 - History of Present Illness Initial Comments: Patient is a 29-year-old female who presents to the emergency department on a pickup order. Patient has reportedly not been seeing her OB for care or following with [facility]. She does live at [facility] and was found leaving the facility today therefore police came to pick her up. Patient not cooperative and stating that she doesn't want to be treated. Patient states that she was trying to leave a stressful environment and so that is why she eloped from the [facility]. She is attempting to convince staff that she is not the correct "Geriann" that police were suppose to sheepskin pickler. Patient has very circular thoughts and therefore the remainder of the HPI is limited (Macie Sanchez) - Related Data Home Medications Medication Instructions Recorded Confirmed Docusate [Colace] 100 mg PO DAILY 05/22/20 05/22/20 Haloperidol Decanoate 100mg/1ml Oil 100 mg IM Q14D 05/22/20 05/22/20 Jml-Ocmr-Oisdj Acid 1 cap PO DAILY 05/22/20 05/22/20 [-U Capsule (formulary)] Allergies Allergy/AdvReac Type Severity Reaction Status Date / Time bee pollen Allergy Unknown Unknown Verified 05/23/20 17:38 ciprofloxacin HCl Allergy Unknown Unknown Verified 05/23/20 17:38 [From Cipro] ciprofloxacin [From Cipro] Allergy Unknown Verified 05/23/20 17:38 acetaminophen [From Tylenol] AdvReac Unknown Unknown Verified 05/23/20 17:37 Review of Systems ROS Other: All systems not noted in ROS Statement are negative. <Jones Trujillo - Last Filed: 05/23/20 14:17> ROS Other: All systems not noted in ROS Statement are negative. <Macie Sanchez - Last Filed: 05/26/20 14:29> ROS Statement: Those systems with pertinent positive or pertinent negative responses have been documented in the HPI. Past Medical History Past Medical History: No Reported History History of Any Multi-Drug Resistant Organisms: None Reported Past Surgical History: No Surgical Hx Reported Additional Past Surgical History / Comment(s): Myringotomy with tube placement Past Psychological History: ADD/ADHD, Anxiety, Depression, Schizoaffective Disorder Smoking Status: Never smoker Past Alcohol Use History: None Reported Past Drug Use History: None Reported - Past Family History Father Family Medical History: Hypertension <Macie Sanchez Last Filed: 05/26/20 14:29> General Exam Limitations: altered mental status General appearance: alert, in no apparent distress Head exam: Present: atraumatic, normocephalic, normal inspection Eye exam: Present: normal appearance, PERRL, EOMI. Absent: scleral icterus, conjunctival injection, periorbital swelling ENT exam: Present: normal exam, mucous membranes moist Neck exam: Present: normal inspection. Absent: tenderness, meningismus, lymphadenopathy Respiratory exam: Present: normal lung sounds bilaterally. Absent: respiratory distress, wheezes, rales, rhonchi, stridor Cardiovascular Exam: Present: regular rate, normal rhythm, normal heart sounds. Absent: systolic murmur, diastolic murmur, rubs, gallop, clicks GI/Abdominal exam: Present: soft, normal bowel sounds. Absent: distended, tenderness, guarding, rebound, rigid Extremities exam: Present: normal inspection, full ROM, normal capillary refill. Absent: tenderness, pedal edema, joint swelling, calf tenderness Back exam: Present: normal inspection Neurological exam: Present: alert, CN II-XII intact Psychiatric exam: Present: manic, other (paranoid. Circular thoughts and reptetitive statements) Skin exam: Present: warm, dry, intact, normal color. Absent: rash <Macie Sanchez - Last Filed: 05/26/20 14:29> Course Vital Signs 05/22/20 05/23/20 16:05 16:04 Temperature 99.2 F 98.3 F Pulse Rate 99 83 Respiratory 18 16 Rate Blood Pressure 108/62 121/55 O2 Sat by Pulse 96 100 Oximetry Medical Decision Making - Lab Data Result diagrams: 05/24/20 06:55 05/24/20 06:55 <Macie Sanchez Last Filed: 05/26/20 14:29> - Medical Decision Making Patient was placed into room 12. Urinalysis was performed. HCG is positive. Patient is about 6 weeks away from delivery. She denies any bleeding. Urinalysis is positive for 41 squamous cells with occasional bacteria. UDS is negative. She is evaluated by EPS states that the patient will be requiring admission for noncompliance and she is currently awaiting a bed on 3 W. (Macie Sanchez) - Lab Data Lab Results 05/22/20 05/22/20 Range/Units 16:46 16:46 Urine Color Yellow Urine Appearance Cloudy H (Clear) Urine pH 7.0 (5.0-8.0) Ur Specific Sidon 1.015 (1.001-1.035) Urine Protein 2+ H (Negative) Urine Glucose (UA) Negative (Negative) Urine Ketones 1+ H (Negative) Urine Blood Negative (Negative) Urine Nitrite Negative (Negative) Urine Bilirubin Negative (Negative) Urine Urobilinogen <2.0 (<2.0) mg/dL Ur Leukocyte Esterase Large H (Negative) Urine RBC 1 (0-5) /hpf Urine WBC 79 H (0-5) /hpf Ur Squamous Epith Cells 41 H (0-4) /hpf Urine Bacteria Occasional H (None) /hpf Hyaline Casts 10 H (0-2) /lpf Urine Mucus Rare H (None) /hpf Urine HCG, Qual Detected (Not Detectd) Urine Opiates Screen Not Detected (NotDetected) Ur Oxycodone Screen Not Detected (NotDetected) Urine Methadone Screen Not Detected (NotDetected) Ur Propoxyphene Screen Not Detected (NotDetected) Ur Barbiturates Screen Not Detected (NotDetected) U Tricyclic Antidepress Not Detected (NotDetected) Ur Phencyclidine Scrn Not Detected (NotDetected) Ur Amphetamines Screen Not Detected (NotDetected) U Methamphetamines Scrn Not Detected (NotDetected) U Benzodiazepines Scrn Not Detected (NotDetected) Urine Cocaine Screen Not Detected (NotDetected) U Marijuana (THC) Screen Not Detected (NotDetected) Disposition Time of Disposition: 14:18 <Jones Trujillo - Last Filed: 05/23/20 14:17> Is patient prescribed a controlled substance at d/c from ED?: No Decision to Admit Reason: Admit from EC <Macie Sanchez - Last Filed: 05/26/20 14:29> Clinical Impression: Psychosis, Disposition: ADMITTED IP TO THIS [facility] Condition: Stable
[2020-05-23] MEDS ORDERED: MAGNESIUM HYDROXIDE 2,400 MG/10 ML CUP PO PRN (16:17)
[2020-05-23] MEDS ORDERED: ACETAMINOPHEN TAB 325 MG TAB PO PRN (16:17)
[2020-05-23] MEDS ORDERED: MAG HYDROX/AL HYDROX/SIMETH 30 ML CUP PO PRN (16:17)
--- NOTE | 2020-05-23 20:44 | P.CON ---
Consult Note - . Consult date: 05/23/20 Assessment/Plan:: This is a 29-year-old white female 3 para 2001 at approximately 34 weeks gestation. Patient was admitted through the emergency room today, on a pickup order. She was noted to be noncompliant with her psychiatric medication and care, living locally at the [facility]. Patient's thoughts are circular, her history is not consistent with stated medical records. I was asked to see the patient as she is followed in my practice by my partner and has had inconsistent obstetrical care. Patient states the fetus is active. She denies any vaginal bleeding. No unusual discharge, no cramping or contractions. Past medical history is significant for ADHD, schizophrenia, and schizoaffective disorder. Past surgical history is significant for myringotomy as a child. Current medications vitamin daily, Colace daily, Haldol 100 mg IM every 14 days with which the patient has been noncompliant. ALLERGIES include ciprofloxacin, unknown reaction. Family history significant for hypertension. Social history patient is unemployed, she is single, she smokes tobacco daily, but denies other drug use. On exam patient is 5 foot 8 inches, 84 kg, blood pressure 121/55, pulse 77. She is unable to give a consistent history, stating that this is her first and that she is scheduled for section. The general physical exam appears within normal limits. The abdomen is gravid, 34-35 week size, vertex pr esentation by Cisco's maneuvers. Patient declines full physical examination. Extremities reveal no edema. No obvious skin rashes or lesions. Urinalysis reveals large esterase, occasional bacteria, 75 WBCs, 1+ ketones. Urine drug screen is negative. Impression: 34 week intrauterine , inconsistent care, being admitted for active psychosis with schizoaffective disorder. Noncompliant with medications. Plan: Urine culture. heart tones daily. I would recommend full obstetric ultrasound for estimated weight, fluid volume and growth. Continue psychiatric care. Thank you for the consultation.
--- NOTE | 2020-05-23 21:59 | US ---
EXAMINATION TYPE: US OB >= 14 wk fetus DATE OF EXAM: 05/23/2020 COMPARISON: us 01/19/2020 CLINICAL HISTORY: estimated weight, position, fluid TECHNIQUE: Transabdominal (TA) GESTATIONAL AGE / DATING Physician Established: (33 weeks/6 days) EDC: 07/05/2020 Dates by LMP: LMP unknown Dates by First Scan: (33 weeks/6 days) EDC: 07/05/2020 Dates by Current Scan: (33 weeks/3 days) EDC: 07/08/2020 SURVEY IUP: Single PLACENTA: Posterior PREVIA: No Previa DARRICK: 16.5 cm Normal CERVICAL LENGTH (transabdominal: norm > 3.0cm): 3.5 cm BIOMETRY PRESENTATION: Vertex LIE: Longitudinal BPD: 8.3 cm 33 weeks / 4 days HC: 31.2 cm 35 weeks / 0 days AC: 29.3 cm 33 weeks / 3 days FL: 6.1 cm 31 weeks / 4 days ESTIMATED WEIGHT IN GRAMS: 2089 grams ESTIMATED WEIGHT IN LBS/OZ: 4 lbs. 10 oz. HC/AC: 1.06 FL/AC: 21% HEART RATE: 134 bpm RHYTHM: Normal Viable IUP, measurements consistent with dates IMPRESSION: Limited survey. Single viable intrauterine corresponding to ultrasound age 33 weeks 3 days with estimated date of delivery July 08, 2020
[2020-05-24 07:08] LABS: Basophils % (A) 1 %; Eosinophils # (A) 0.2 k/uL (0-0.7); Eosinophils % (A) 2 %; HGB 12.4 gm/dL (11.4-16.0); Lymphocytes # (A) 2.7 k/uL (1.0-4.8); Lymphocytes % (A) 34 %; MCH 31.2 pg (25.0-35.0); MCHC 32.7 g/dL (31.0-37.0); MCV 95.4 fL (80.0-100.0); Mean Platelet Volume 6.9; Monocytes # (A) 0.5 k/uL (0-1.0); Monocytes % (A) 6 %; Neutrophils # (A) 4.4 k/uL (1.3-7.7); Neutrophils % (A) 54 %; Platelet Count 294 k/uL (150-450); RBC 3.98 m/uL (3.80-5.40); RDW 13.3 % (11.5-15.5); WBC 8.1 k/uL (3.8-10.6)
[2020-05-24 07:18] LABS: ALT 11 U/L (4-34); AST 16 U/L (14-36); African American GFR (CKD) >90 (>60 ml/min/1.73 sqM); Albumin 2.7 g/dL (3.5-5.0); Alkaline Phosphatase 62 U/L (38-126); Anion Gap 2 mmol/L; Blood Urea Nitrogen 3 mg/dL (7-17); Calcium 8.2 mg/dL (8.4-10.2); Carbon Dioxide 23 mmol/L (22-30); Chloride 110 mmol/L (98-107); Cholesterol 187 mg/dL (<200); Glucose 76 mg/dL (74-99); HDL Cholesterol 85 mg/dL (40-60); LDL Cholesterol,Calculated 72 mg/dL (0-99); Non-African American GFR(CKD) >90 (>60 ml/min/1.73 sqM); Potassium 3.7 mmol/L (3.5-5.1); Sodium 135 mmol/L (137-145); Total Bilirubin 0.3 mg/dL (0.2-1.3); Total Protein 5.1 g/dL (6.3-8.2); Triglycerides 150 mg/dL (<150)
[2020-05-24] MEDS: DOCUSATE 100 MG CAP PO SCH (09:56)
[2020-05-24] MEDS: PRENATAL VIT-IRON-FOLIC ACID 1 EACH CAP PO SCH (09:56)
--- NOTE | 2020-05-24 10:01 | P.PN ---
Subjective Progress Note Date: 05/24/20 Principal diagnosis: 34 week intrauterine , hospitalized for acute psychosis with history of schizophrenic disorder. fetus active Objective - Vital Signs Vital signs: Vital Signs Temp 99.0 F 05/24/20 06:42 Pulse 89 05/24/20 06:42 Resp 17 05/24/20 06:42 BP 116/74 05/24/20 06:42 Pulse Ox 97 05/24/20 06:42 Intake & Output 05/23/20 05/24/20 05/24/20 18:59 06:59 18:59 Weight 84.1 kg - Constitutional General appearance: Present: disheveled, morbidly obese - EENT Eyes: Present: PERRLA - Respiratory Respiratory: bilateral: CTA - Gastrointestinal General gastrointestinal: Present: normal bowel sounds - Integumentary Integumentary: Present: normal - Neurologic Neurologic: Present: CNII-XII intact - Musculoskeletal Musculoskeletal: Present: gait normal - Labs CBC & Chem 7: 05/24/20 06:55 05/24/20 06:55 Labs: Abnormal Lab Results - Last 24 Hours (Table) 05/24/20 Range/Units 06:55 Sodium 135 L (137-145) mmol/L Chloride 110 H (98-107) mmol/L BUN 3 L (7-17) mg/dL Creatinine 0.43 L (0.52-1.04) mg/dL Calcium 8.2 L (8.4-10.2) mg/dL Total Protein 5.1 L (6.3-8.2) g/dL Albumin 2.7 L (3.5-5.0) g/dL Triglycerides 150 H (<150) mg/dL HDL Cholesterol 85 H (40-60) mg/dL Microbiology - Last 24 Hours (Table) 05/22/20 16:46 Urine Culture - Final Urine,Voided Assessment and Plan Assessment: 34 week intrauterine . Psychiatric admission for psychosis, schizophrenia. Plan: Ultrasound reveals mackey vertex, normal DARRICK, 21st percentile estimated weight. Continue heart tones daily. Consider 1 hour Glucola testing if patient able to comply. Time with Patient: Less than 30
--- NOTE | 2020-05-24 12:31 | P.CONS ---
History of Present Illness - Reason for Consult Consult date: 05/24/20 - History of Present Illness The patient is a 29-year-old female with a PMH of schizophrenia, currently at 34 weeks gestation who was brought into the ED under police custody for not taking her medications and not seen her OB or following up with his [facility] appointments. The patient was noted to have circumferentially in the emergency room and was thereby admitted to the mental health unit where she was seen and evaluated earlier today. Patient was in good spirits and denied active complaints. She denied dysuria, urinary frequency, urgency. She also denied chest pain, shortness of breath, fever, chills, nausea, vomiting, cough, or abdominal pain. Laboratory evaluation from the emergency room was reviewed. Review of Systems Pertinent positives and negatives as discussed in HPI, a complete review of systems was performed and all other systems are negative. Past Medical History Past Medical History: No Reported History History of Any Multi-Drug Resistant Organisms: None Reported Past Surgical History: No Surgical Hx Reported Additional Past Surgical History / Comment(s): Myringotomy with tube placement Smoking Status: Current every day smoker - Past Family History Father Family Medical History: Hypertension Medications and Allergies Home Medications Medication Instructions Recorded Confirmed Type Docusate [Colace] 100 mg PO DAILY 05/22/20 05/22/20 History Haloperidol Decanoate 100mg/1ml Oil 100 mg IM Q14D 05/22/20 05/22/20 History Mid-Poei-Sitwm Acid 1 cap PO DAILY 05/22/20 05/22/20 History [-U Capsule (formulary)] Allergies Allergy/AdvReac Type Severity Reaction Status Date / Time bee pollen Allergy Unknown Unknown Verified 05/23/20 17:38 ciprofloxacin HCl Allergy Unknown Unknown Verified 05/23/20 17:38 [From Cipro] ciprofloxacin [From Cipro] Allergy Unknown Verified 05/23/20 17:38 acetaminophen [From Tylenol] AdvReac Unknown Unknown Verified 05/23/20 17:37 Physical Exam Vitals: Vital Signs Temp Pulse Pulse Resp BP BP Pulse Ox 05/24/20 06:42 99.0 F 89 17 116/74 97 05/23/20 16:43 97.1 F L 92 16 102/73 96 05/23/20 16:04 98.3 F 83 16 121/55 100 Intake and Output 05/23/20 05/24/2005/24/20 22:59 06:59 14:59 Other: Weight 84.1 kg General: non toxic, no distress, appears at stated age, normal weight Derm: no unusual rashes/lesions no unusual ecchymoses, warm, dry Head: atraumatic, normocephalic, symmetric Eyes: EOMI, no lid lag, anicteric sclera, pupils equal round reactive to light ENT: Nose and ears atraumatic, no thrush, no pharyngeal erythema Neck: No thyromegaly, no cervical lymphadenopathy, trachea midline, supple Mouth: no lip lesion, mucus membranes moist Cardiovascular: S1S2 reg, no murmur, positive posterior tibial pulse bilateral, no edema, capillary refill less than 2 seconds Lungs: CTA bilateral, no rhonchi, no rales , no accessory muscle use Abdominal: Third trimester gestation, soft, nontender to palpation, no guarding, normal bowel sounds Ext: no gross muscle atrophy, muscle strength 5 out of 5 in all 4 extremities grossly, no contractures, Neuro: CN II-XI grossly intact, light touch intact all 4 extremities, finger to nose within normal limits, Psych: Alert, oriented, appropriate affect Results CBC & Chem 7: 05/24/20 06:55 05/24/20 06:55 Labs: Abnormal Lab Results - Last 24 Hours (Table) 05/24/20 Range/Units 06:55 Sodium 135 L (137-145) mmol/L Chloride 110 H (98-107) mmol/L BUN 3 L (7-17) mg/dL Creatinine 0.43 L (0.52-1.04) mg/dL Calcium 8.2 L (8.4-10.2) mg/dL Total Protein 5.1 L (6.3-8.2) g/dL Albumin 2.7 L (3.5-5.0) g/dL Triglycerides 150 H (<150) mg/dL HDL Cholesterol 85 H (40-60) mg/dL Microbiology - Last 24 Hours (Table) 05/22/20 16:46 Urine Culture - Final Urine,Voided Assessment and Plan Plan: 34 week intrauterine -SERVICE CENTER COORDINATOR consulted -Patient had abnormal UA, OB awaiting urine cultures -Patient currently taking multivitamins -Patient scheduled to get glucose tolerance test Schizophrenia with psychosis -As per psychiatry Thank you for allowing us to participate in the care of this patient. We will follow peripherally. Do not hesitate to contact us with questions. Someone can be reached from the [facility] hospitalist group at all hours of the day at [phone].
--- NOTE | 2020-05-24 15:19 | P.HP ---
Psychiatric H&P - . H&P Date: 05/24/20 History & Physical: IDENTIFYING DATA: She is a 29-year-old single female who has a history of schizoaffective disorder. She is also 34 weeks . HISTORY OF PRESENT ILLNESS: The police brought her to the emergency room on a pickup order. According to information from her director of casework department in the [facility] she's been noncompliant with treatment and [facility] appointment for Haldol Decanoate injection today prior to admission. She will not keep her DOCTOR" appointments, will not cooperate with diabetes testing and she eloped from the nursing home. When the police arrived in the nursing home she refused to tell the police her name the ER she alleged that she is the subject of mistaken identity. She cares with her copies of her probate order and guardianship order. On some orders for her name is spelled "Milena" and others it is "Mercedes." She alleged that she has been mistaken with the other Milena who is mentally ill and under court mandated treatment. She denied that she had refused to go to the clinic for Haldol Decanoate injection, that she refused diabetic testing, refused to go to her obstetrical appointments or eloped from the nursing home. She alleged that she "signed out" during her "free time". When she was out to [facility] walking staff inappropriately a follow-up to her talking on the telephone her that when she] nursing home the police were waiting for her. She denied feeling depressed or having thoughts of or suicide. She denied feeling anxious, tense or worried. She denied use of alcohol or drugs with the exception of tobacco. She denied auditory, visual or olfactory hallucinations. She denied ideas reference, thought insertion, thought broadcasting or thought control. PAST PSYCHIATRIC HISTORY: She has a long history of psychiatric illness diagnosis schizoaffective disorder and multiple psychiatric hospitalizations. She was last discharged from this unit on 04/15/2020. She is in a residential nursing home and receives intensive case management through [facility]. PAST MEDICAL HISTORY: She is 34 weeks . She has a history of asthma. On 2 past admissions she had lice infestation. ALLERGIES: Ciprofloxacin acetaminophen SUBSTANCE USE HISTORY: Denied FAMILY PSYCHIATRIC/SUBSTANCE USE HISTORY: Denied LEGAL HISTORY: She has a public guardian SOCIAL HISTORY:. She is single and lives in a nursing home. She does not have custody of HER-2 children. She cried from high school. She is unemployed and receives social security disability. MENTAL STATUS EXAM: She presented as a casually groomed 29-year-old female with long dark hair. She made eye contact and attended to the interview. She had no distinction features are prominent physical abnormalities. She had a blunted but bright facial expression. She was alert and oriented to person, place and time. She showed no abnormality of psychomotor activity. She had no abnormal involuntary movements. Her speech was spontaneous with decreased rate and rhythm. She had no articulation difficulties. Affect was blunted, stable and appropriate. She denied suicidal ideation and wishes. She denied homicidal ideation. She denied feeling hopeless, helpless or worthless. She did not express ideas reference. She expressed vague. I talked about staff the nursing home are conspiring against her and following her. She also believes that she is a subject of mistaken identity involving other Mercedes Adame. Her thinking was concrete but her associations were coherent and logical. She denied hallucinations and did not appear to be responding to internal stimuli. Global impression of intellect is average. She has limited awareness or understanding of her mental illness. STRENGTHS: Good physical health, stable housing, stable income, engagement with intensive community mental health services WEAKNESSES: Lack of insight or understanding of her mental illness IMPRESSION: She is a 29-year-old single female who is 34 weeks . [facility] order for noncompliance with medical and psychiatric treatment. She has a fixed delusion that she is subject of mistaken identity. She'll be treated inpatient basis with combination of psychopharmacology and multimodal therapy. PRINCIPLE DIAGNOSIS: Schizoaffective disorder bipolar type, poor compliance with mental health care, 34 week intrauterine RECOMMENDATION: Admitted to the psychiatric unit involuntarily. Safety precautions. Consult medicine and SERVICE ORDER DISPATCHER. make up worker to coordinate discharge and aftercare services. Continue Haldol Decanoate 100 mg IM biweekly. Encourage participation in therapeutic groups and activities. Evaluate clinical status response to treatment daily basis. Follow-up with [facility]. Allergies Allergy/AdvReac Type Severity Reaction Status Date / Time bee pollen Allergy Unknown Unknown Verified 05/23/20 17:38 ciprofloxacin HCl Allergy Unknown Unknown Verified 05/23/20 17:38 [From Cipro] ciprofloxacin [From Cipro] Allergy Unknown Verified 05/23/20 17:38 acetaminophen [From Tylenol] AdvReac Unknown Unknown Verified 05/23/20 17:37 Vital Signs Temp 98.3 F 05/24/20 12:00 Pulse 89 05/24/20 06:42 Resp 17 05/24/20 06:42 BP 116/74 05/24/20 06:42 Pulse Ox 97 05/24/20 06:42 Intake & Output 05/23/20 05/24/20 05/24/20 18:59 06:59 18:59 Weight 84.1 kg Laboratory Last Values WBC 8.1 k/uL (3.8-10.6) 05/24/20 06:55 RBC 3.98 m/uL (3.80-5.40) 05/24/20 06:55 Hgb 12.4 gm/dL (11.4-16.0) 05/24/20 06:55 Hct 38.0 % (34.0-46.0) 05/24/20 06:55 MCV 95.4 fL (80.0-100.0) 05/24/20 06:55 MCH 31.2 pg (25.0-35.0) 05/24/20 06:55 MCHC 32.7 g/dL (31.0-37.0) 05/24/20 06:55 RDW 13.3 % (11.5-15.5) 05/24/20 06:55 Plt Count 294 k/uL (150-450) 05/24/20 06:55 Neutrophils % 54 % 05/24/20 06:55 Lymphocytes % 34 % 05/24/20 06:55 Monocytes % 6 % 05/24/20 06:55 Eosinophils % 2 % 05/24/20 06:55 Basophils % 1 % 05/24/20 06:55 Neutrophils # 4.4 k/uL (1.3-7.7) 05/24/20 06:55 Lymphocytes # 2.7 k/uL (1.0-4.8) 05/24/20 06:55 Monocytes # 0.5 k/uL (0-1.0) 05/24/20 06:55 Eosinophils # 0.2 k/uL (0-0.7) 05/24/20 06:55 Basophils # 0.0 k/uL (0-0.2) 05/24/20 06:55 Sodium 135 mmol/L (137-145) L 05/24/20 06:55 Potassium 3.7 mmol/L (3.5-5.1) 05/24/20 06:55 Chloride 110 mmol/L (98-107) H 05/24/20 06:55 Carbon Dioxide 23 mmol/L (22-30) 05/24/20 06:55 Anion Gap 2 mmol/L 05/24/20 06:55 BUN 3 mg/dL (7-17) L 05/24/20 06:55 Creatinine 0.43 mg/dL (0.52-1.04) L 05/24/20 06:55 Est GFR (CKD-EPI)AfAm >90 (>60 ml/min/1.73 sqM) 05/24/20 06:55 Est GFR (CKD-EPI)NonAf >90 (>60 ml/min/1.73 sqM) 05/24/20 06:55 Glucose 76 mg/dL (74-99) 05/24/20 06:55 Calcium 8.2 mg/dL (8.4-10.2) L 05/24/20 06:55 Total Bilirubin 0.3 mg/dL (0.2-1.3) 05/24/20 06:55 AST 16 U/L (14-36) 05/24/20 06:55 ALT 11 U/L (4-34) 05/24/20 06:55 Alkaline Phosphatase 62 U/L (38-126) 05/24/20 06:55 Total Protein 5.1 g/dL (6.3-8.2) L 05/24/20 06:55 Albumin 2.7 g/dL (3.5-5.0) L 05/24/20 06:55 Triglycerides 150 mg/dL (<150) H 05/24/20 06:55 Cholesterol 187 mg/dL (<200) 05/24/20 06:55 LDL Cholesterol, Calc 72 mg/dL (0-99) 05/24/20 06:55 HDL Cholesterol 85 mg/dL (40-60) H 05/24/20 06:55 TSH 1.620 mIU/L (0.465-4.680) 05/24/20 06:55 Urine Color Yellow 05/22/20 16:46 Urine Appearance Cloudy (Clear) H 05/22/20 16:46 Urine pH 7.0 (5.0-8.0) 05/22/20 16:46 Ur Specific [place] 1.015 (1.001-1.035) 05/22/20 16:46 Urine Protein 2+ (Negative) H 05/22/20 16:46 Urine Glucose (UA) Negative (Negative) 05/22/20 16:46 Urine Ketones 1+ (Negative) H 05/22/20 16:46 Urine Blood Negative (Negative) 05/22/20 16:46 Urine Nitrite Negative (Negative) 05/22/20 16:46 Urine Bilirubin Negative (Negative) 05/22/20 16:46 Urine Urobilinogen <2.0 mg/dL (<2.0) 05/22/20 16:46 Ur Leukocyte Esterase Large (Negative) H 05/22/20 16:46 Urine RBC 1 /hpf (0-5) 05/22/20 16:46 Urine WBC 79 /hpf (0-5) H 05/22/20 16:46 Ur Squamous Epith Cells 41 /hpf (0-4) H 05/22/20 16:46 Urine Bacteria Occasional /hpf (None) H 05/22/20 16:46 Hyaline Casts 10 /lpf (0-2) H 05/22/20 16:46 Urine Mucus Rare /hpf (None) H 05/22/20 16:46 Urine HCG, Qual Detected (Not Detectd) 05/22/20 16:46 Urine Opiates Screen Not Detected (NotDetected) 05/22/20 16:46 Ur Oxycodone Screen Not Detected (NotDetected) 05/22/20 16:46 Urine Methadone Screen Not Detected (NotDetected) 05/22/20 16:46 Ur Propoxyphene Screen Not Detected (NotDetected) 05/22/20 16:46 Ur Barbiturates Screen Not Detected (NotDetected) 05/22/20 16:46 U Tricyclic Antidepress Not Detected (NotDetected) 05/22/20 16:46 Ur Phencyclidine Scrn Not Detected (NotDetected) 05/22/20 16:46 Ur Amphetamines Screen Not Detected (NotDetected) 05/22/20 16:46 U Methamphetamines Scrn Not Detected (NotDetected) 05/22/20 16:46 U Benzodiazepines Scrn Not Detected (NotDetected) 05/22/20 16:46 Urine Cocaine Screen Not Detected (NotDetected) 05/22/20 16:46 U Marijuana (THC) Screen Not Detected (NotDetected) 05/22/20 16:46 05/24/20 15:07
[2020-05-24] MEDS: HALOPERIDOL DECANOATE 100 MG/ML 1 ML VIAL IM SCH ×2 (15:58→16:08)
[2020-05-24 19:26] LABS: Hemoglobin A1C 5.2 % (4.0-6.0)
[2020-05-25] MEDS: DOCUSATE 100 MG CAP PO SCH (09:53)
[2020-05-25] MEDS: PRENATAL VIT-IRON-FOLIC ACID 1 EACH CAP PO SCH (09:54)
--- NOTE | 2020-05-25 17:16 | P.PN ---
Progress Note - Text Progress Note Date: 05/25/20 Interval history: Patient reports that sleep and appetite are stable. She does make reference to some other paperwork regarding her name and people changing to her name. She shows me a paper that she has been working on that lists coping skills. Mental status exam: She presents as overall pleasant and cooperative. Her speech is not rapid or pressured. She does make reference to some paperwork regarding people changing to her name. She does not verbalize any thoughts of harm to self or others. She does not display any agitation. Thought processes seem to show some disorganization. Plan: Patient will be maintained on current treatment regimen. Continue to monitor for any medication side effects and monitor her ongoing response to treatment. She is encouraged regarding attending groups.
[2020-05-26] MEDS: DOCUSATE 100 MG CAP PO SCH (09:24)
[2020-05-26] MEDS: PRENATAL VIT-IRON-FOLIC ACID 1 EACH CAP PO SCH (09:24)
--- NOTE | 2020-05-26 17:10 | P.PN ---
Progress Note - Text Progress Note Date: 05/26/20 Interval history: Patient seen in [facility] again today. She reports that she is not taking the current vitamin because it makes her constipated. She does talk about taking a vitamin at home. She did seem to sleep well last night and says she felt rested. She talks about making some calls and finding a place to stay. Mental status exam: She is alert and cooperative with the interview. Her affect does show some range. She describes her mood is pretty good. She does not display any agitation. She does not make any statements about thoughts of harm to self or others. Plan: Patient will be maintained on current treatment regimen. Continue to monitor for any medication side effects and monitor her ongoing response to treatment.
[2020-05-27] MEDS: PRENATAL VIT-IRON-FOLIC ACID 1 EACH CAP PO SCH (10:13)
[2020-05-27] MEDS: DOCUSATE 100 MG CAP PO SCH (10:14)
--- NOTE | 2020-05-27 13:53 | P.PN ---
Progress Note - Text Progress Note Date: 05/27/20 Clinical Problems: Schizoaffective disorder bipolar type, poor compliance with mental health care, 34 week intrauterine Interim history: I reviewed the medical record, interviewed the patient and discussed her treatment and treatment plan during team meeting. She perseverated about mistaken identity alleging there are 5 Kristin Adame. She believes that another Kristin Marquez has a mental illness and she was mistakenly brought to the hospital instead of the other person. In support of her belief she showed me various probate documents where her name is spelled differently. In addition, on the order for the resident manager the social security number does not match hers. She refused the Haldol Decanoate injection. She has had no episodes of behavioral dyscontrol or received IM injections of Ativan or Geodon. Mental status exam: She presented as a casually groomed 29-year-old female who was intermittently pleasant, irritable and demanding. She made eye contact but did not appear to fully concentrate or attend to the interview. She had labile facial expression. She is not restless or agitated. Her speech was spontaneous disorder with her mood. Her affect was labile at times she became angry but the intensity of her emotional expression was not inappropriate. She denied suicidal ideation, wishes or homicidal ideation. She feels helpless and hopeless regarding issues of suicidality. She ruminated about this identity. She expressed ideas reference, paranoid ideation and delusions. Her thinking was concrete but associations were coherent and consistent. She denied hallucinations and did not appear to be responding to internal stimuli. Assessment: She is emotionally labile, has no insight or understanding of her illness and maintains a fixed belief that she is not the "mentally ill" Kristin Marquez. Plan: Continue inpatient treatment. Seek precautions. Demand for probate hearing for involuntary hospitalization submitted the probate Court. Continue Ativan 1 mg by mouth/IM 3 times a day when necessary for agitation or anxiety and Geodon 20 mg IM twice a day for agitation or acute psychosis. Restart Haldol and Haldol Decanoate after receive an order for involuntary hospitalization.
[2020-05-28] MEDS: PRENATAL VIT-IRON-FOLIC ACID 1 EACH CAP PO SCH (09:49)
[2020-05-28] MEDS: DOCUSATE 100 MG CAP PO SCH (09:49)
[2020-05-28] MEDS: HALOPERIDOL DECANOATE 100 MG/ML 1 ML VIAL IM SCH (11:22)
--- NOTE | 2020-05-28 14:11 | P.PN ---
Progress Note - Text Progress Note Date: 05/28/20 Clinical Problems: Schizoaffective disorder bipolar type, poor compliance with mental health care, 34 week intrauterine Interim history: I reviewed the medical record, interviewed the patient and discussed her treatment and treatment plan during team meeting. She requested to Haldol injection today stating that it's the "best way to get out of here." She did not perseverate about being the subject of a mistaken identity and being one of 5 different [facility]. She refused heart tones today. She attended one therapeutic groups (but otherwise does not attend therapeutic groups or activities). She had no episodes of behavioral dyscontrol. Mental status exam: She presented as a casually groomed 29-year-old female who was pleasant on approach. She made eye contact and appeared to attend to the interview. She had bright facial expression. She is not restless or agitated. Her speech was spontaneous with normal rate, rhythm and volume. Her affect was stable and appropriate. She denied suicidal ideation, wishes or homicidal ideation. She denied feeling hopeless or helpless. She did not ruminate about the delusional belief that she is subject a mistaken identity. Her thinking was concrete but associations were coherent and consistent. She denied hallucinations and did not appear to be responding to internal stimuli. Assessment: She is improved from admission and agreed to resume the monthly Haldol Decanoate injections. Plan: Continue inpatient treatment. Safety precautions. Date of the probate hearing is pending. Haldol Decanoate 100 mg IM today and 100 mg monthly. Continue Ativan 1 mg by mouth/IM 3 times a day when necessary for agitation or anxiety and Geodon 20 mg IM twice a day for agitation or acute psychosis.
[2020-05-29] MEDS: PRENATAL VIT-IRON-FOLIC ACID 1 EACH CAP PO SCH (08:35)
[2020-05-29] MEDS: DOCUSATE 100 MG CAP PO SCH (08:35)
--- NOTE | 2020-05-29 15:10 | P.PN ---
Progress Note - Text Progress Note Date: 05/29/20 Clinical Problems: Schizoaffective disorder bipolar type, poor compliance with mental health care, 34 week intrauterine Interim history: I reviewed the medical record, interviewed the patient and discussed her treatment and treatment plan during team meeting. "I took my shot. When can I go home." She had difficulty understanding the circumstances that brought her to the hospital. She did not believe me when I explained that she came here involuntarily and would need to remain in the hospital onto her probate hearing. I explained the process several times but she would not accept my explanation. She finally asked me to "write it down" and plans to "talk with [facility]" Mental status exam: She presented as a casually groomed 29-year-old female who was pleasant on approach. She made eye contact and appeared to attend to the interview. She had bright facial expression. She is not restless or agitated. Her speech was spontaneous with normal rate, rhythm and volume. Her affect was at times irritable, angry and accusatory but otherwise was pleasant and bright. She denied suicidal ideation, wishes or homicidal ideation. She denied feeling hopeless or helpless. She did not ruminate about the delusional belief that she is subject a mistaken identity. Her thinking was concrete but associations were coherent and consistent. She denied hallucinations and did not appear to be responding to internal stimuli. Assessment: She continues to deny the circumstances that brought her to the hospital but has been compliant with treatment on the unit. She does not appear to understand involuntary hospitalization process Plan: Continue inpatient treatment. Safety precautions. Date of the probate hearing is pending. Haldol Decanoate 100 mg monthly. Continue Ativan 1 mg by mouth/IM 3 times a day when necessary for agitation or anxiety and Geodon 20 mg IM twice a day for agitation or acute psychosis.
[2020-05-30] MEDS: DOCUSATE 100 MG CAP PO SCH (09:15)
[2020-05-30] MEDS: PRENATAL VIT-IRON-FOLIC ACID 1 EACH CAP PO SCH (09:15)
[2020-05-30 09:33] LABS: Glucose,Whole Blood 88 mg/dL (75-99)
--- NOTE | 2020-05-30 14:03 | P.PN ---
Progress Note - Text Progress Note Date: 05/30/20 Clinical Problems: Schizoaffective disorder bipolar type, poor compliance with mental health care, 34 week intrauterine Interim history: I reviewed the medical record, interviewed the patient and discussed her treatment and treatment plan during team meeting. We have been talked about her involuntary status. She believes we should discharge her because she "took a shot." She did not believe that she needs to stay in the hospital until her probate hearing. She would not come into my office and insisted that I go with her to nurses station so that we would have a nurse witnessed our conversation. Nurse Yemiy came out and explained that she could not leave the hospital until her probate hearing. The ammunition specialist called probate Court and confirmed that the hearing is June 05. Mental status exam: She presented as a casually groomed 29-year-old female who was pleasant on approach. She made eye contact and appeared to attend to the interview. She had bright facial expression. She was restless and rocked back and forth on her feet. Her speech was spontaneous with normal rate, rhythm and volume. Her affect was suspicious, guarded and accusatory but but not inappropriate. She denied suicidal ideation, wishes or homicidal ideation. She denied feeling hopeless or helpless. She did not ruminate about the delusional belief that she is subject a mistaken identity. Her thinking was concrete but associations were coherent and consisten t. She denied hallucinations and did not appear to be responding to internal stimuli. Assessment: She continues to deny the circumstances that brought her to the hospital but has been compliant with treatment on the unit. She does not understand the involuntary hospitalization process Plan: Continue inpatient treatment. Safety precautions. Haldol Decanoate 100 mg monthly. Continue Ativan 1 mg by mouth/IM 3 times a day when necessary for agitation or anxiety and Geodon 20 mg IM twice a day for agitation or acute psychosis.
[2020-05-31] MEDS: PRENATAL VIT-IRON-FOLIC ACID 1 EACH CAP PO SCH (09:19)
[2020-05-31] MEDS: DOCUSATE 100 MG CAP PO SCH (09:19)
--- NOTE | 2020-05-31 12:42 | P.PN ---
Progress Note - Text Progress Note Date: 05/31/20 Clinical Problems: Schizoaffective disorder bipolar type, poor compliance with mental health care, 34 week intrauterine Interim history: I reviewed the medical record, interviewed the patient and discussed her treatment and treatment plan during team meeting. She announced that she believes she has ADHD and asked about and medication for depression and anxiety "that begins with L." She asked me if I was going to start that medication and demanded that I stop Haldol. She does not believe that she requires treatment with Haldol. She denied problems other than "some depression and anxiety." She became increasingly angry when I would not agree to her request. She accused me of not "listing to" her. The [facility] liaison informed us that they plan to transfer her to [facility] after her probate hearing. Mental status exam: She presented as a casually groomed 29-year-old female who was pleasant on approach. She made eye contact and appeared to attend to the interview. She had angry facial expression. She was restless but showed no abnormal involuntary movements. Her speech was spontaneous and consistent with her mood. Her affect was irritable and suspicious.. She denied suicidal ideation, wishes or homicidal ideation. She denied feeling hopeless or helpless. She did not ruminate about the delusional belief that she is subject a mistaken identity. Her thinking was concrete but associations were coherent and consistent. She denied hallucinations and did not appear to be responding to internal stimuli. Assessment: She continues to deny the circumstances that brought her to the hospital but has been compliant with treatment on the unit. S Plan: Continue inpatient treatment. Safety precautions. Haldol Decanoate 100 mg monthly. Continue Ativan 1 mg by mouth/IM 3 times a day when necessary for agitation or anxiety and Geodon 20 mg IM twice a day for agitation or acute psychosis.
[2020-06-01] MEDS: DOCUSATE 100 MG CAP PO SCH (08:32)
[2020-06-01] MEDS: PRENATAL VIT-IRON-FOLIC ACID 1 EACH CAP PO SCH (08:32)
[2020-06-02] MEDS: PRENATAL VIT-IRON-FOLIC ACID 1 EACH CAP PO SCH (08:36)
[2020-06-02] MEDS: DOCUSATE 100 MG CAP PO SCH ×2 (08:36→22:05)
--- NOTE | 2020-06-02 17:24 | PN ---
PROGRESS NOTE DATE OF SERVICE: 06/02/2020. CHIEF COMPLAINT: The patient is 35 weeks . She was admitted on a pick-up order due to noncompliance with medications or followup with physicians including for care. INTERVAL HISTORY: Patient has been doing a little bit better overall. She had a quiet evening last night. She comes out in the day area. She tends to wander. She had not attended most of the groups yesterday, though she did make 1 group. She will interact some with staff and peers though she does not seem to engage in any consistent way. She slept fairly well last night. Today she has been up. Overall she is doing about the same. She seems to be a little more stable in her mood where she has a more positive outlook more of the time. She has had some complaints of constipation, though has been managing that with Colace and prune juice. She says for the most part that is going okay for her. She acknowledges that she has a better outlook and feels overall more even in her mood. She has been appropriate with care. She tolerates psychotropic medications. MENTAL STATUS: Patient gave good eye contact. She had normal psychomotor activity. She answered questions appropriately. Her thoughts were clear and coherent. She was spontaneous and interactive. She talked about some of her general health issues in her appropriate way. She had a good range of affect. She smiled through most of the interview. Her mood was even. She did not appear to be distressed. There was no indication of thought disorder. She voiced no thoughts of harm to self or others. Cognition was clear. ASSESSMENT: I will continue the current diagnosis and treatment plan. We will continue psychotropic medications the same. The patient does appear more even in her moods. Hopefully, we will see some continued stabilization of mood. We will continue to focus on supporting both mental health and needs. We will focus on stabilization and discharge planning. MMODL / IJN: [id number] /
--- NOTE | 2020-06-02 17:24 | PN ---
PROGRESS NOTE DATE OF SERVICE: 06/01/2020. CHIEF COMPLAINT: The patient is . She has been delusional. She was admitted on a pick-up order for noncompliance with medications and physician appointments including for management. INTERVAL HISTORY: Patient has been doing fair. She continues with some ups and downs in her mood. She can get irritable at times. She comes out in the day area. She does not interact too much with others. There are other times where she can present in a fairly good mood where she might smile and make some appropriate comments to others. At other times, she may get quite irritable, angry and loud. She slept fairly well last night. Today she has been up. She continues in the same manner. Her mood is up and down. Difficult to anticipate what might set her off. For the most part, she has been cooperative with care. She tolerates her psychotropic medication. MENTAL STATUS: Patient was restless. She gave fair eye contact. She answered questions with brief responses. She tended to be tangential. At times, she would veer off and make comments that were disconnected from the subject at hand. Her affect was intense. Her mood dysphoric. At the end of the interview, she seemed quite distressed for unclear reasons. It was difficult to assess for thought disorder. It is difficult to assess for any thoughts of harm to herself. She appeared oriented to her circumstances and environment. ASSESSMENT: I will continue the current diagnosis and treatment plan. We will continue to make efforts to engage the patient in individual and group therapeutic activities. I have encouraged the patient to attend groups. She will attend a group on occasion. When she does, she seems to be appropriate in group. We will continue on Haldol Decanoate 100 mg Q 2 weeks. We will continue to support management in regards to her as she is now at 34 weeks. We will focus on stabilization and discharge planning. MMODL / IJN: [id number] /
[2020-06-03] MEDS: DOCUSATE 100 MG CAP PO SCH ×2 (08:56→21:17)
[2020-06-03] MEDS: PRENATAL VIT-IRON-FOLIC ACID 1 EACH CAP PO SCH (08:56)
--- NOTE | 2020-06-03 15:50 | P.PN ---
Progress Note - Text Progress Note Date: 06/03/20 Clinical Problems: Schizoaffective disorder bipolar type, poor compliance with mental health care, 34 week intrauterine Interim history: I reviewed the medical record, interviewed the patient and discussed her treatment and treatment plan during team meeting. She denied problems or concerns other than wanting to leave the hospital. She appears unaware that [facility] is requesting transfer to [facility]. I referred her to the [facility] liaison to discuss her long-term plans. She is usually did not perseverate on the belief that she is subject to a mistaken identity. Mental status exam: She presented as a casually groomed 29-year-old female who was pleasant on approach. She made eye contact and appeared to attend to the interview. She had angry facial expression. She was restless but showed no abnormal involuntary movements. Her speech was spontaneous and consistent with her mood. Her affect was irritable and suspicious.. She denied suicidal ideation, wishes or homicidal ideation. She denied feeling hopeless or helpless. She did not ruminate about the delusional belief that she is subject a mistaken identity. Her thinking was concrete but associations were coherent and consistent. She denied hallucinations and did not appear to be responding to internal stimuli. Assessment: She continues to deny the circumstances that brought her to the hospital but has been compliant with treatment on the unit. Plan: Continue inpatient treatment. Safety precautions. Haldol Decanoate 100 mg monthly. Continue Ativan 1 mg by mouth/IM 3 times a day when necessary for agitation or anxiety and Geodon 20 mg IM twice a day for agitation or acute psychosis.
[2020-06-04] MEDS: PRENATAL VIT-IRON-FOLIC ACID 1 EACH CAP PO SCH (09:40)
[2020-06-04] MEDS: DOCUSATE 100 MG CAP PO SCH ×2 (09:40→21:30)
--- NOTE | 2020-06-04 13:29 | P.PN ---
Progress Note - Text Progress Note Date: 06/04/20 Clinical Problems: Schizoaffective disorder bipolar type, poor compliance with mental health care, 34 week intrauterine Interim history: I reviewed the medical record, interviewed the patient and discussed her treatment and treatment plan during team meeting. She is less argumentative than on prior encounters. She asked if she would be discharged after the probate hearing tomorrow. I explained that [facility] and her guarding are considering options other than returning to [facility]. Mental Status: She presented as a 29-year-old female who is casually dressed, pleasant and cooperative. She made eye contact and attended to interview. She had a blunted but bright facial expression. She is intermittently restless but not agitated or aggressive. Her speech is spontaneous with normal rate and rhythm. Affect was stable and appropriate. She denied suicidal ideation, wishes or homicidal ideation. She feels helpless about her hospitalization and court ordered treatment. She did not perseverate about mistaken identity. She denied hallucinations and did not appear to be responding to internal stimuli. Assessment: She continues to deny the circumstances that brought her to the hospital but has been compliant with treatment on the unit. Plan: Continue inpatient treatment. Safety precautions. Haldol Decanoate 100 mg monthly. Social work to coordinate discharge and aftercare services with [facility] and the patient's guardian. Continue Ativan 1 mg by mouth/IM 3 times a day when necessary for agitation or anxiety and Geodon 20 mg IM twice a day for agitation or acute psychosis.
[2020-06-05] MEDS: PRENATAL VIT-IRON-FOLIC ACID 1 EACH CAP PO SCH (09:23)
[2020-06-05] MEDS: DOCUSATE 100 MG CAP PO SCH ×2 (09:23→20:36)
--- NOTE | 2020-06-05 13:03 | P.PN ---
Progress Note - Text Progress Note Date: 06/05/20 Clinical Problems: Schizoaffective disorder bipolar type, poor compliance with mental health care, 34 week intrauterine Interim history: I reviewed the medical record, interviewed the patient and discussed her treatment and treatment plan during team meeting. She much is less argumentative than on prior encounters. She stipulated to the involuntary order. She perseverated about discharge. I told her we will discharge her after we obtain a copy of the probate order. The social problems specialist reported that during the meeting between [facility] and the energy administrator, the home help aide talked about discharge to a "locked facility". She vomited this morning. She intermittently attends therapeutic groups and activities. She slept 4 hours last night. Mental Status: She presented as a 29-year-old female who is casually dressed, pleasant and cooperative. She made eye contact and attended to interview. She had a blunted but bright facial expression. She is intermittently restless but not agitated or aggressive. Her speech is spontaneous with normal rate and rhythm. Affect was stable and appropriate. She denied suicidal ideation, wishes or homicidal ideation. She feels helpless about her hospitalization and court ordered treatment. She did not perseverate about mistaken identity. She denied hallucinations and did not appear to be responding to internal stimuli. Assessment: She continues to deny the circumstances that brought her to the hospital but has been compliant with treatment on the unit. Plan: Continue inpatient treatment. Safety precautions. Awaiting a copy of the probate order. Haldol Decanoate 100 mg monthly. Social work to coordinate discharge and aftercare services with [facility] and the patient's guardian. Continue Ativan 1 mg by mouth/IM 3 times a day when necessary for agitation or anxiety and Geodon 20 mg IM twice a day for agitation or acute psychosis.
[2020-06-06] MEDS: DOCUSATE 100 MG CAP PO SCH ×2 (08:32→21:49)
[2020-06-06] MEDS: PRENATAL VIT-IRON-FOLIC ACID 1 EACH CAP PO SCH (08:33)
--- NOTE | 2020-06-06 14:10 | P.PN ---
Progress Note - Text Progress Note Date: 06/06/20 Clinical Problems: Schizoaffective disorder bipolar type, poor compliance with mental health care, 34 week intrauterine Interim history: I reviewed the medical record, interviewed the patient and discussed her treatment and treatment plan during team meeting. She was pleasant until we began to discuss her discharge and recommendations for aftercare. She was keen on being discharged today stating that she has been taking her medications and agreed to the involuntary treatment order. The probate order does not include transfer to a state psychiatric hospital. Her healthcare social worker has been communicating with [facility] liaison. Apparently, her [facility] physician and her tube skiver and the ACT program wanted her transferred to [facility]. The liaison is alleging that she has an intake at [facility] scheduled for tomorrow. When I informed Kristin of this plan she became acutely distressed and attacked my competency. Mental Status: She presented as a 29-year-old female who is casually dressed, pleasant and cooperative. She made eye contact and attended to interview. She had a blunted but bright facial expression. She is intermittently restless but not agitated or aggressive. Her speech is spontaneous with normal rate and rhythm. Affect was angry but not inappropriate her uncontrolled. She denied suicidal ideation, wishes or homicidal ideation. She feels helpless about her hospitalization and court ordered treatment. She did not perseverate about mistaken identity. She denied hallucinations and did not appear to be responding to internal stimuli. Assessment: She continues to deny the circumstances that brought her to the hospital but has been compliant with treatment on the unit. We cannot justify an extended stay to accommodate a transfer to a state psychiatric facility. Plan: Continue inpatient treatment. Safety precautions. Haldol Decanoate 100 mg biweekly. Social work to coordinate discharge and aftercare services with [facility] and the patient's guardian. Continue Ativan 1 mg by mouth/IM 3 times a day when necessary for agitation or anxiety and Geodon 20 mg IM twice a day for agitation or acute psychosis.
[2020-06-07] MEDS: PRENATAL VIT-IRON-FOLIC ACID 1 EACH CAP PO SCH (09:35)
[2020-06-07] MEDS: DOCUSATE 100 MG CAP PO SCH ×2 (09:36→20:56)
--- NOTE | 2020-06-07 14:10 | P.PN ---
Progress Note - Text Progress Note Date: 06/07/20 Clinical Problems: Schizoaffective disorder bipolar type, poor compliance with mental health care, 34 week intrauterine Interim history: I reviewed the medical record, interviewed the patient and discussed her treatment and treatment plan during team meeting. I also spoke to Dr. Allen certified medical asst for [facility]. Dr. Allen recommended and authorized admission to [facility] because Kristin has not been compliant with outpatient care including obstetrical appointments. He is concerned that her behavior is placing the fetus at risk. He would like her inpatient until delivery. He informed me that [facility] is not accepting admissions and their admission director recommended admission to [facility]. The [facility] liaison informed us that's if we were to discharge her in [facility] would initiate admission to another psychiatric facility. Kristin was greatly distressed when I informed her of the recommendations. She demanded that I discharged her to independent living. She eventually demanded that we have this conversation at the nurses station with her social worker palliative care so that the conversation could be video recorded. The social worker palliative care confirmed the treatment plan and offered her the opportunity to speak with the recipient right clerk supervisor. Mental Status: She presented as a 29-year-old female who is angry and demanding. She made eye contact and attended to interview. She had an angry facial expression. She is intermittently restless but not agitated or aggressive. Her speech is spontaneous with normal rate and rhythm. Affect was angry but not inappropriate her uncontrolled. She denied suicidal ideation, wishes or homicidal ideation. She feels helpless about her hospitalization and court ordered treatment. She did not perseverate about mistaken identity. She denied hallucinations and did not appear to be responding to internal stimuli. Assessment: She continues to deny the circumstances that brought her to the hospital but has been compliant with treatment on the unit. Plan: Continue inpatient treatment. Safety precautions. Haldol Decanoate 100 mg biweekly. [facility] is pursuing transfer to [facility] with her psychiatric hospital or another [facility] psychiatric facility. Continue Ativan 1 mg by mouth/IM 3 times a day when necessary for agitation or anxiety and Geodon 20 mg IM twice a day for agitation or acute psychosis.
[2020-06-08] MEDS: PRENATAL VIT-IRON-FOLIC ACID 1 EACH CAP PO SCH (08:42)
[2020-06-08] MEDS: DOCUSATE 100 MG CAP PO SCH ×2 (08:42→19:37)
--- NOTE | 2020-06-08 13:52 | P.PN ---
Progress Note - Text Progress Note Date: 06/08/20 Clinical Problems: Schizoaffective disorder bipolar type, poor compliance with mental health care, 34 week intrauterine Interim history: I reviewed the medical record and interviewed the patient. She remains distressed about the recommendation that she remained in the hospital until delivery. She argued that this plan violated her rights. I explained [facility][1]'s concern regarding the safety of her unborn child. She is posed no management problem had no episodes appear lose control. Mental Status: She presented as a 29-year-old female who is angry and demanding. She made eye contact and attended to interview. She had a labile facial expression and she cried during the interview. She is intermittently restless but not agitated or aggressive. Her speech is spontaneous with normal rate and rhythm. Affect was angry but not inappropriate her uncontrolled. She denied suicidal ideation, wishes or homicidal ideation. She feels helpless about her hospitalization and court ordered treatment. She did not perseverate about mistaken identity. She denied hallucinations and did not appear to be responding to internal stimuli. Assessment: She continues to deny the circumstances that brought her to the hospital but has been compliant with treatment on the unit. Plan: Continue inpatient treatment. Safety precautions. Haldol Decanoate 100 mg biweekly. [facility] is pursuing transfer to [facility] or [facility]. Continue Ativan 1 mg by mouth/IM 3 times a day when necessary for agitation or anxiety and Geodon 20 mg IM twice a day for agitation or acute psychosis.
[2020-06-09] MEDS: DOCUSATE 100 MG CAP PO SCH ×2 (08:58→20:50)
[2020-06-09] MEDS: PRENATAL VIT-IRON-FOLIC ACID 1 EACH CAP PO SCH (08:58)
--- NOTE | 2020-06-09 11:09 | P.PN ---
Progress Note - Text Progress Note Date: 06/09/20 Clinical Problems: Schizoaffective disorder bipolar type, poor compliance with mental health care, 34 week intrauterine Interim history: I reviewed the medical record and interviewed the patient. She remains distressed about the recommendation that she remained in the hospital until delivery. She accused me of having confidence. She was happy to learn that she will be assigned to a different psychiatrist tomorrow. She replied "maybe she will discharge me." She is posed no management problem had no episodes appear lose control. She attended one therapeutic groups yesterday. She slept 6 hours. Mental Status: She presented as a 29-year-old female who is angry and demanding to be discharged. She made eye contact and attended to interview. She had a angry facial expression. She was not agitated or aggressive. Her speech is spontaneous with normal rate and rhythm. Affect was angry but not inappropriate her uncontrolled. She denied suicidal ideation, wishes or homicidal ideation. She feels helpless about her hospitalization and court ordered treatment. She did not perseverate about mistaken identity. She denied hallucinations and did not appear to be responding to internal stimuli. Assessment: She continues to deny the circumstances that brought her to the hospital but has been compliant with treatment on the unit. Plan: Continue inpatient treatment. Safety precautions. Haldol Decanoate 100 mg biweekly. [facility] is pursuing transfer to [facility] or another [facility] psychiatric hospital. Continue Ativan 1 mg by mouth/IM 3 times a day when necessary for agitation or anxiety and Geodon 20 mg IM twice a day for agitation or acute psychosis.
[2020-06-10] MEDS: DOCUSATE 100 MG CAP PO SCH ×2 (08:22→21:23)
[2020-06-10] MEDS: PRENATAL VIT-IRON-FOLIC ACID 1 EACH CAP PO SCH (08:23)
--- NOTE | 2020-06-10 13:42 | P.PN ---
Progress Note - Text Progress Note Date: 06/10/20 I reviewed the medical record, interviewed the patient and discussed in team meeting TODAY VITALS:P:60,R:14,BP:93/49 Interim history: She remains distressed about the recommendation that she remained in the hospital until delivery. She stated that if she will stay in hospital she wants to be sure that protective service will take away her baby ,she started to cry when I told her that she might be transferred to correction facility,patient was evasive and guarded ,refused to discuss previous pregnancies and claimed that she had 2 miscarriages She has been participating in therapeutic groups,no behavior problems Mental Status: She presented as a 29-year-old female who is demanding to be discharged. or to move to different floor She made eye contact and attended to interview. She was not agitated or aggressive. Her speech is spontaneous with normal rate and rhythm. Affect was labile changing from irritability to sobbing uncontrolled. She denied suicidal ideation, wishes or homicidal ideation. She feels helpless about her hospitalization and court ordered treatment.. She denied hallucinations and did not appear to be responding to internal stimuli. Assessment: Schizoaffective disorder bipolar type, 34 week intrauterine Plan: Continue inpatient treatment. Safety precautions. Haldol Decanoate 100 mg biweekly. Next injection on 06/12 [facility] is pursuing transfer to [facility] or another [facility]. Monitor her blood pressure
[2020-06-11] MEDS: PRENATAL VIT-IRON-FOLIC ACID 1 EACH CAP PO SCH (09:22)
[2020-06-11] MEDS: DOCUSATE 100 MG CAP PO SCH ×2 (09:22→20:48)
[2020-06-11 09:40] LABS: Basophils % (A) 1 %; Eosinophils # (A) 0.1 k/uL (0-0.7); Eosinophils % (A) 1 %; HCT 38.6 % (34.0-46.0); HGB 12.5 gm/dL (11.4-16.0); Lymphocytes # (A) 2.3 k/uL (1.0-4.8); Lymphocytes % (A) 27 %; MCH 31.6 pg (25.0-35.0); MCHC 32.4 g/dL (31.0-37.0); MCV 97.4 fL (80.0-100.0); Mean Platelet Volume 6.9; Monocytes # (A) 0.5 k/uL (0-1.0); Monocytes % (A) 5 %; Neutrophils # (A) 5.4 k/uL (1.3-7.7); Neutrophils % (A) 64 %; Platelet Count 298 k/uL (150-450); RBC 3.96 m/uL (3.80-5.40); WBC 8.5 k/uL (3.8-10.6)
[2020-06-11] MEDS ORDERED: HALOPERIDOL DECANOATE 100 MG/ML 1 ML VIAL IM SCH (10:45)
[2020-06-11] MEDS: HALOPERIDOL DECANOATE 100 MG/ML 1 ML VIAL IM SCH (11:36)
--- NOTE | 2020-06-11 13:38 | P.PN ---
Progress Note - Text Progress Note Date: 06/11/20 I reviewed the medical record, interviewed the patient and discussed in team meeting Interim history: Patient was pleasant ,smiling as I told her about her discharge plan to less restrisctive setting ,patient tried to gather more informations about post-discharge placement She has been participating in therapeutic groups,no behavior problems Mental Status: She presented as a 29-year-old female who is pleasant ,cooperative She made eye contact and attended to interview. She was not agitated or aggressive. Her speech is spontaneous with normal rate and rhythm. Affect was appropriate to thought content ,smiling and bright She denied suicidal ideation, wishes or homicidal ideation. . She denied hallucinations and did not appear to be responding to internal stimuli. Assessment: Schizoaffective disorder bipolar type, 34 week intrauterine Plan: Continue inpatient treatment. Safety precautions. Haldol Decanoate 100 mg biweekly ,she will receive next injection today. She will be transferred to [facility] tomorrow ACCORDING TO NOTES: ((tx team meeting held, case discussed. pt will likely be transferred to [facility] tomorrow as the [facility] tx team feels strongly it is in her best interest to be hospitalized until after the of her baby, for the safety of both the patient and her unborn child. Attending psychiatrist is aware of this plan. [facility] is coordinating. Will transfer via EMS.
[2020-06-12 07:01] VITALS: BP 118/64; PULSE 83; RESP 18; TEMP 97.6
[2020-06-12 09:35] VITALS: BMI 29.7
[2020-06-12] MEDS: PRENATAL VIT-IRON-FOLIC ACID 1 EACH CAP PO SCH (10:01)
[2020-06-12] MEDS: DOCUSATE 100 MG CAP PO SCH (10:01)
--- NOTE | 2020-06-12 10:02 | DS ---
DISCHARGE SUMMARY ADMITTING DATE: 05/22/2020. DISCHARGE DATE: 06/12/2020 Attending physician, initially she was under Dr. Manolo Ceja from May 22, and June 09, 2020, then I crossed covered him since June 10, 2020. CONSULTING PHYSICIAN: Dr. Whiteside for care at and Dr. Elias for medical consultation, H and P and followup. DISCHARGE DIAGNOSES: 1. Schizoaffective disorder, bipolar type. 2. A 37 week intrauterine . HISTORY AND PHYSICAL AND SUMMARY OF THE ADMISSION NOTES: Patient is a 29 years, single female who was brought to the emergency room by the police on pickup order according to the information from her lineman at [facility]. The patient has been noncompliant with her injection as she is supposed to have high dose of Decanoate every 2 weeks and she did not keep her doctor's appointment. Even she eloped from the residential where she was living. Patient denied any depression at the time of admission, denied any sort of suicide. She stated that she is frustrated as she is back in the inpatient unit. For details of psychiatric history and physical, please refer to Dr. Ceja's psych eval dictated on May 24, 2020. HOSPITAL COURSE: Patient was admitted to the hospital and she was on 15 minute safety. They did heart tone daily. In addition to she had ultrasound to estimate the weight and the growth and she was started back on Haldol Decanoate 100 mg IM every 2 weeks. Her last injection was on June 11, 2020. In addition, she was started on vitamin daily, Colace daily. Throughout her stay patient was not attending any therapeutic group and she was frustrated to be on the unit. Dr. Ceja discussed the case with her outpatient psychiatrist, Dr. Allen, who did recommend that the patient is supposed to be on the inpatient unit to continue her hospitalization until delivery. Initially patient was irritable, demanding to be discharged, claiming that it is mistaken identity and the police did pick the wrong person, In addition, she was very upset with her public guardian, as the public guardian did agree about the treatment plan that the patient is supposed to continue involuntary hospitalization until the of the child. For the first week, she was refusing to get her Haldol injection. However, after the probate hearing and we did receive the order from the court, she did get the injection on May 29, Haldol 100 mg IM and as I mentioned before, her next injection was on June 11, 2020. amusement park worker did try to coordinate transfer of the patient to the [facility] to [facility] as according to her outpatient psychiatrist, that the patient has not been compliant with the outpatient including the visits and he was very concerned that her behavior is placing the fetus at risk. Dr. Allen and the [facility] liaison did help to facilitate the transfer to a long-term facility and [facility] did accept the patient. Patient was initially resistant to any participation to therapeutic group. However, for the last couple of days when I was seeing her, she was compliant and she was trying to participate in most of group therapy. MENTAL STATUS EXAMINATION: At the time of her discharge, patient presented as a 29-year-old female, who is pleasant and cooperative. Made good eye contact and attended She was smiling. She did not show any agitation or aggression behavior. Her speech is spontaneous with normal rate and rhythm. Affect is appropriate to thought content. She denied any suicidal ideation or homicidal ideation. She was excited about having the baby in a couple of weeks. She denied any hallucination. She denied any delusional thinking and she did not appear to be responding to any internal stimuli. Her insight and judgment are fair. ASSESSMENT: 1. Schizoaffective disorder. 2. A 37 week intrauterine . DISCHARGE PLAN: Patient will be transferred today June 12 to [facility] until her delivery. Patient to continue on Haldol Decanoate 100 mg biweekly. Patient will be transferred to the hospital by ambulance. PROGNOSIS: Fair with compliance with mental health care and compliance with medications. MMODL / IJN: [id number] /
== END 2020-06-12 10:30 | DRG 885 ==
LOC: EC 15:45 → 3MHU 05-23 15:06
PROVIDERS: ADMIT Psychiatry & Neurology Psychiatry; ATTEND Psychiatry & Neurology Psychiatry
DX: F25.0 Schizoaffective disorder, bipolar type (principal); O99.344 Other mental disorders complicating childbirth; F41.9 Anxiety disorder, unspecified; O99.52 Diseases of the respiratory system complicating childbirth; J45.909 Unspecified asthma, uncomplicated; O99.334 Smoking (tobacco) complicating childbirth; F17.210 Nicotine dependence, cigarettes, uncomplicated; T43.4X6A Underdosing of butyrophenone and thiothixene neuroleptics, initial encounter; Z91.128 Patient's intentional underdosing of medication regimen for other reason; Z3A.34 34 weeks gestation of pregnancy; Z82.49 Family history of ischemic heart disease and other diseases of the circulatory system; Z91.19 Patient's noncompliance with other medical treatment and regimen; Z88.6 Allergy status to analgesic agent; Z88.1 Allergy status to other antibiotic agents; Z79.899 Other long term (current) drug therapy; Z56.0 Unemployment, unspecified
CPT/HCPCS: 76805; 80053; 80061; 80306; 81001; 81025; 82075; 82950; 83036; 84443; 85025; 87086; 99285

== ENCOUNTER 2020-09-19 09:36 | Emergency (ER) | payer MEDICARE, OTHER ==
[2020-09-19 09:42] VITALS: BP 116/66; PULSE 98; RESP 18; TEMP 98.8
--- NOTE | 2020-09-19 09:48 | ED ---
URI HPI - General Chief Complaint: Upper Respiratory Infection Stated Complaint: COVID Symptoms Time Seen by Provider: 09/19/20 09:47 Source: patient Mode of arrival: ambulatory Limitations: no limitations - History of Present Illness Initial Comments: 30yo female presenting for congestion, slight cough x 2-3 days. Denies chest pain SOB, states symptoms have been ongoing for past few days, patient requesting covid testing. states she has PCP appointment later this day. Denies diarrhea, vomiting, fevers. Patient denies . She appears well nontoxic in no acute respiratory distress on arrival - Related Data Home Medications Medication Instructions Recorded Confirmed Docusate [Colace] 100 mg PO DAILY 05/22/20 05/22/20 Haloperidol Decanoate 100mg/1ml Oil 100 mg IM Q14D 05/22/20 05/22/20 Npe-Ithd-Silml Acid 1 cap PO DAILY 05/22/20 05/22/20 [-U Capsule (formulary)] Previous Rx's Medication Instructions Recorded Mag Hydrox/Al Hydrox/Simeth 30 ml PO Q4HR PRN ml 06/11/20 [Maalox] Magnesium Hydroxide [Milk of 2,400 mg PO DAILY PRN ml 06/11/20 Magnesia Concentrate] Allergies Allergy/AdvReac Type Severity Reaction Status Date / Time bee pollen Allergy Unknown Unknown Verified 09/19/20 09:42 ciprofloxacin HCl Allergy Unknown Unknown Verified 09/19/20 09:42 [From Cipro] ciprofloxacin [From Cipro] Allergy Unknown Verified 09/19/20 09:42 acetaminophen [From Tylenol] AdvReac Unknown Unknown Verified 09/19/20 09:42 Review of Systems ROS Statement: Those systems with pertinent positive or pertinent negative responses have been documented in the HPI. ROS Other: All systems not noted in ROS Statement are negative. Past Medical History Past Medical History: No Reported History History of Any Multi-Drug Resistant Organisms: None Reported Past Surgical History: No Surgical Hx Reported Additional Past Surgical History / Comment(s): Myringotomy with tube placement Past Psychological History: ADD/ADHD, Anxiety, Depression, Schizoaffective Disorder Smoking Status: Current every day smoker Past Alcohol Use History: None Reported Past Drug Use History: None Reported - Past Family History Father Family Medical History: Hypertension General Exam - General Exam Comments Initial Comments: General: The patient is awake and alert, in no distress, and does not appear acutely ill. Eye: Pupils are equal, round and reactive to light, extra-ocular movements are intact. No nystagmus. There is normal conjunctiva bilaterally. No signs of icterus. Ears, nose, mouth and throat: There are moist mucous membranes and no oral lesions. Nasal congestion Neck: The neck is supple, there is no tenderness or JVD. Cardiovascular: There is a regular rate and rhythm. No murmur, rub or gallop is appreciated. Respiratory: Lungs are clear to auscultation, respirations are non-labored, breath sounds are equal. No wheezes, stridor, rales, or rhonchi.Dry cough Gastrointestinal: Soft, non-distended, non-tender abdomen without masses or organomegaly noted. There is no rebound or guarding present. Musculoskeletal: Normal ROM, no tenderness. Strength 5/5. Sensation intact. Pulses equal bilaterally 2+. Neurological: A&O x 3. CN II-XII intact grossly, There are no obvious motor or sensory deficits. Coordination appears grossly intact. Speech is normal. Skin: Skin is warm and dry and no rashes or lesions are noted. Psychiatric: Cooperative, appropriate mood & affect, normal judgment. Limitations: no limitations Course Vital Signs 09/19/20 09:39 Temperature 98.8 F Pulse Rate 98 Respiratory 18 Rate Blood Pressure 116/66 O2 Sat by Pulse 98 Oximetry Medical Decision Making - Medical Decision Making Cough dry. Lungs clear .Patient afebrile, nontoxic. And not hypoxic, requesting covid testing. Will be discharged with PCP after testing. Patient and attending agreeable to this care plan. Disposition Clinical Impression: Congestion of nasal sinus, Cough Disposition: HOME SELF-CARE Condition: Good Instructions (If sedation given, give patient instructions): Upper Respiratory Infection (ED) Additional Instructions: Please use medication as discussed. Please follow-up with family doctor in the next 2 days. Please return to emergency room if the symptoms increase or worsen or for any other concerns. Is patient prescribed a controlled substance at d/c from ED?: No Referrals: [facility] [Primary Care Provider] - 1-2 days Time of Disposition: 09:48
== END 2020-09-19 10:26 | disposition home or self-care (01) ==
LOC: EC 09:36
DX: R09.81 Nasal congestion (principal); R05 Cough; F17.200 Nicotine dependence, unspecified, uncomplicated; Z79.899 Other long term (current) drug therapy; Z91.030 Bee allergy status; Z88.1 Allergy status to other antibiotic agents; Z88.6 Allergy status to analgesic agent; Z20.828 Contact with and (suspected) exposure to other viral communicable diseases
CPT/HCPCS: 99283; U0003

== ENCOUNTER 2021-08-02 12:45 | Emergency (ER) | payer MEDICARE, OTHER ==
[2021-08-02 13:08] VITALS: BP 135/91; PULSE 115; RESP 18; TEMP 98.4
--- NOTE | 2021-08-02 14:10 | ED ---
Psych HPI - General Chief Complaint: Psychiatric Symptoms Stated Complaint: petition Time Seen by Provider: 08/02/21 13:17 Source: patient, police, RN notes reviewed Mode of arrival: ambulatory Limitations: no limitations - History of Present Illness Initial Comments: This a 31-year-old female presents emergency dept chief complaint of needing psychiatric help. Patient was brought to emergency department via police and is petition. Patient's been having some bizarre erratic behavior. Patient denies being suicidal homicidal states she has a bad situation where she is living and states that she needs to get out of the situation. Patient offers no other complaints. Denies being homicidal. - Related Data Home Medications Medication Instructions Recorded Confirmed Docusate [Colace] 100 mg PO DAILY 05/22/20 05/22/20 Haloperidol Decanoate 100mg/1ml Oil 100 mg IM Q14D 05/22/20 05/22/20 Xoj-Lqfp-Dzmym Acid 1 cap PO DAILY 05/22/20 05/22/20 [-U Capsule (formulary)] Previous Rx's Medication Instructions Recorded Mag Hydrox/Al Hydrox/Simeth 30 ml PO Q4HR PRN ml 06/11/20 [Maalox] Magnesium Hydroxide [Milk of 2,400 mg PO DAILY PRN ml 06/11/20 Magnesia Concentrate] Allergies Allergy/AdvReac Type Severity Reaction Status Date / Time bee pollen Allergy Unknown Unknown Verified 08/02/21 13:04 ciprofloxacin HCl Allergy Unknown Unknown Verified 08/02/21 13:04 [From Cipro] ciprofloxacin [From Cipro] Allergy Unknown Verified 08/02/21 13:04 acetaminophen [From Tylenol] AdvReac Unknown Unknown Verified 08/02/21 13:04 Review of Systems ROS Statement: Those systems with pertinent positive or pertinent negative responses have been documented in the HPI. ROS Other: All systems not noted in ROS Statement are negative. Past Medical History Past Medical History: No Reported History History of Any Multi-Drug Resistant Organisms: None Reported Past Surgical History: No Surgical Hx Reported Additional Past Surgical History / Comment(s): Myringotomy with tube placement Past Psychological History: ADD/ADHD, Anxiety, Depression, Schizoaffective Disorder Smoking Status: Current every day smoker Past Alcohol Use History: None Reported Past Drug Use History: None Reported - Past Family History Father Family Medical History: Hypertension General Exam Limitations: no limitations General appearance: alert, in no apparent distress Head exam: Present: atraumatic, normocephalic, normal inspection Eye exam: Present: normal appearance, PERRL, EOMI. Absent: scleral icterus, conjunctival injection, periorbital swelling ENT exam: Present: normal exam, mucous membranes moist Neck exam: Present: normal inspection, full ROM. Absent: tenderness, meningismus, lymphadenopathy Respiratory exam: Present: normal lung sounds bilaterally. Absent: respiratory distress, wheezes, rales, rhonchi, stridor Cardiovascular Exam: Present: regular rate, normal rhythm, normal heart sounds. Absent: systolic murmur, diastolic murmur, rubs, gallop, clicks GI/Abdominal exam: Present: soft, normal bowel sounds. Absent: distended, ten derness, guarding, rebound, rigid Neurological exam: Present: altered Psychiatric exam: Present: anxious Course Vital Signs 08/02/21 13:04 Temperature 98.4 F Pulse Rate 115 H Respiratory 18 Rate Blood Pressure 135/91 O2 Sat by Pulse 96 Oximetry Medical Decision Making - Medical Decision Making Patient was evaluated by EPS patient be discharged Return parameters discussed. Disposition Clinical Impression: Acute anxiety, PTSD (post-traumatic stress disorder) Disposition: HOME SELF-CARE Condition: Stable Additional Instructions: Please return to the Emergency Department if symptoms worsen or any other concerns. Is patient prescribed a controlled substance at d/c from ED?: No Referrals: None,Stated [REFERRING] - 1-2 days Time of Disposition: 14:39
== END 2021-08-02 14:54 | disposition home or self-care (01) ==
LOC: EC 12:45
DX: F43.10 Post-traumatic stress disorder, unspecified (principal); F41.9 Anxiety disorder, unspecified; F90.9 Attention-deficit hyperactivity disorder, unspecified type; F32.9 Major depressive disorder, single episode, unspecified; F25.9 Schizoaffective disorder, unspecified; F17.200 Nicotine dependence, unspecified, uncomplicated; Z88.1 Allergy status to other antibiotic agents; Z88.6 Allergy status to analgesic agent
CPT/HCPCS: 82075; 99284

== ENCOUNTER 2022-02-03 21:17 | Emergency (ER) | payer MEDICARE, OTHER ==
[2022-02-03 21:40] VITALS: TEMP 98.4
--- NOTE | 2022-02-03 21:55 | ED ---
Recheck HPI - General Chief Complaint: Recheck/Abnormal Lab/Rx Stated Complaint: Petition Time Seen by Provider: 02/03/22 21:41 Source: police, RN notes reviewed Mode of arrival: ambulatory Limitations: no limitations - History of Present Illness Initial Comments: Pleasant 31-year-old female presents large bilateral missing her monthly dose of Prolixin. Medication was ordered by psychiatry. Patient denies any suicidal or homicidal ideation. Denies any other symptomology. No recent illness. Positive cigarette smoker. Denies alcohol or drug abuse. No headache, no fever or chills, no changes in vision or hearing, no sore throat or difficulty with speech, no neck pain, no chest pain or shortness of breath, no abdominal pain, no nausea or vomiting, no changes in urination or bowel movements, no numbness or tingling, no extremity pain, no skin rashes or lesions. - Related Data Home Medications Medication Instructions Recorded Confirmed Docusate [Colace] 100 mg PO DAILY 05/22/20 05/22/20 Haloperidol Decanoate 100mg/1ml Oil 100 mg IM Q14D 05/22/20 05/22/20 Mbg-Sgru-Rtesy Acid 1 cap PO DAILY 05/22/20 05/22/20 [-U Capsule (formulary)] Previous Rx's Medication Instructions Recorded Mag Hydrox/Al Hydrox/Simeth 30 ml PO Q4HR PRN ml 06/11/20 [Maalox] Magnesium Hydroxide [Milk of 2,400 mg PO DAILY PRN ml 06/11/20 Magnesia Concentrate] Allergies Allergy/AdvReac Type Severity Reaction Status Date / Time bee pollen Allergy Unknown Unknown Verified 02/03/22 21:40 ciprofloxacin HCl Allergy Unknown Unknown Verified 02/03/22 21:40 [From Cipro] ciprofloxacin [From Cipro] Allergy Unknown Verified 02/03/22 21:40 acetaminophen [From Tylenol] AdvReac Unknown Unknown Verified 02/03/22 21:40 Review of Systems ROS Statement: Those systems with pertinent positive or pertinent negative responses have been documented in the HPI. ROS Other: All systems not noted in ROS Statement are negative. Past Medical History Past Medical History: No Reported History History of Any Multi-Drug Resistant Organisms: None Reported Past Surgical History: No Surgical Hx Reported Additional Past Surgical History / Comment(s): Myringotomy with tube placement Past Psychological History: ADD/ADHD, Anxiety, Depression, Schizoaffective Disorder Smoking Status: Current every day smoker Past Alcohol Use History: None Reported Past Drug Use History: None Reported - Past Family History Father Family Medical History: Hypertension General Exam Limitations: no limitations General appearance: alert, in no apparent distress Head exam: Present: atraumatic, normocephalic, normal inspection Eye exam: Present: normal appearance, PERRL, EOMI. Absent: scleral icterus, conjunctival injection, periorbital swelling ENT exam: Present: normal exam, mucous membranes moist Neck exam: Present: normal inspection. Absent: tenderness, meningismus, lymphadenopathy Respiratory exam: Present: normal lung sounds bilaterally. Absent: respiratory distress, wheezes, rales, rhonchi, stridor Cardiovascular Exam: Present: regular rate, normal rhythm, normal heart sounds. Absent: systolic murmur, diastolic murmur, rubs, gallop, clicks GI/Abdominal exam: Present: soft, normal bowel sounds. Absent: distended, tend erness, guarding, rebound, rigid Extremities exam: Present: normal inspection, full ROM, normal capillary refill. Absent: tenderness, pedal edema, joint swelling, calf tenderness Back exam: Present: normal inspection Neurological exam: Present: alert, oriented X3, CN II-XII intact Psychiatric exam: Present: normal affect, normal mood Skin exam: Present: warm, dry, intact, normal color. Absent: rash Course Vital Signs 02/03/22 21:38 Temperature 98.4 F Pulse Rate 109 H Respiratory 18 Rate Blood Pressure 125/87 O2 Sat by Pulse 96 Oximetry Medical Decision Making - Medical Decision Making Patient presents for medication administration. No other symptomatology or complaints. Patient was told to return to the ER for any signs or symptoms worsen. Told to return immediately if any other problems arise. All questions answered. Treatment plan discussed. Patient in agreement Every effort has been made to ensure accuracy of this dictation. However, due to the limitations of electronic medical records and dictation devices, errors in charting still occur. Disposition Clinical Impression: Medication administered, Cigarette smoker Disposition: HOME SELF-CARE Condition: Good Instructions (If sedation given, give patient instructions): How to Stop Smoking (ED), Depression (ED) Additional Instructions: Follow-up with your regular physician as directed. Return to the ER immediately if any symptoms worsen, new symptoms arise, or any other problems develop. Is patient prescribed a controlled substance at d/c from ED?: No Referrals: [facility] [Primary Care Provider] - 1-2 days Time of Disposition: 21:54
[2022-02-03] MEDS ORDERED: fluPHENAZine DECANOATE 25 MG/ML 5ML MDV IM ONE (22:00)
[2022-02-03 22:15] VITALS: BP 132/90; PULSE 102; RESP 16
== END 2022-02-03 22:14 | disposition home or self-care (01) ==
LOC: EC 21:17
DX: Z51.81 Encounter for therapeutic drug level monitoring (principal); F32.A Depression, unspecified; F41.9 Anxiety disorder, unspecified; F25.9 Schizoaffective disorder, unspecified; F90.9 Attention-deficit hyperactivity disorder, unspecified type; F17.210 Nicotine dependence, cigarettes, uncomplicated
CPT/HCPCS: 99282 ×2; 96372 ×2; J2680

== ENCOUNTER → 2022-02-23 | Outpatient (CLI) | payer MEDICARE, OTHER ==
--- NOTE | 2022-02-23 16:23 | XR ---
Abdomen HISTORY: Constipation Frontal view of the abdomen on 2 images No comparisons There is retained fecal debris present throughout the distribution of the colon. No evident bowel obs truction or pneumoperitoneum. No pathologic calcification. Lung bases are clear. Surgical clips suspe cted in the right upper quadrant. Bone mineralization is normal. IMPRESSION: Correlate for constipation.
== END | disposition home or self-care (01) ==
LOC: RADXRMAIN 15:43
PROVIDERS: ATTEND Internal Medicine
DX: K59.00 Constipation, unspecified (principal)
CPT/HCPCS: 74018

== ENCOUNTER 2022-04-18 14:52 | Emergency (ER) | payer MEDICARE, OTHER ==
[2022-04-18 15:08] VITALS: RESP 18; TEMP 98.2
[2022-04-18 16:21] LABS: Basophils # (A) 0.1 k/uL (0-0.2); Basophils % (A) 1 %; Eosinophils # (A) 0.2 k/uL (0-0.7); Eosinophils % (A) 2 %; HCT 45.7 % (34.0-46.0); HGB 15.2 gm/dL (11.4-16.0); Lymphocytes # (A) 2.7 k/uL (1.0-4.8); Lymphocytes % (A) 31 %; MCH 32.1 pg (25.0-35.0); MCHC 33.3 g/dL (31.0-37.0); MCV 96.4 fL (80.0-100.0); Mean Platelet Volume 6.7; Monocytes # (A) 0.5 k/uL (0-1.0); Monocytes % (A) 6 %; Neutrophils # (A) 5.1 k/uL (1.3-7.7); Neutrophils % (A) 58 %; Platelet Count 294 k/uL (150-450); RBC 4.75 m/uL (3.80-5.40); RDW 12.7 % (11.5-15.5); WBC 8.7 k/uL (3.8-10.6)
[2022-04-18 16:39] LABS: ALT 20 U/L (4-34); AST 27 U/L (14-36); African American GFR (CKD) >90 (>60 ml/min/1.73 sqM); Alkaline Phosphatase 53 U/L (38-126); Anion Gap 4 mmol/L; Blood Urea Nitrogen 8 mg/dL (7-17); Calcium 9.1 mg/dL (8.4-10.2); Carbon Dioxide 26 mmol/L (22-30); Chloride 108 mmol/L (98-107); Glucose 83 mg/dL (74-99); Non-African American GFR(CKD) >90 (>60 ml/min/1.73 sqM); Potassium 4.4 mmol/L (3.5-5.1); Sodium 138 mmol/L (137-145); Total Bilirubin 0.1 mg/dL (0.2-1.3); Total Protein 6.2 g/dL (6.3-8.2)
[2022-04-18 16:44] LABS: INR 0.9 (<1.2); Prothrombin Time 9.7 sec (9.0-12.0)
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
[2022-04-18 18:04] VITALS: BP 136/88; PULSE 88
== END 2022-04-18 18:04 | disposition home or self-care (01) ==
LOC: EC 14:52
DX: K64.8 Other hemorrhoids (principal); F17.209 Nicotine dependence, unspecified, with unspecified nicotine-induced disorders; Z88.6 Allergy status to analgesic agent; Z88.1 Allergy status to other antibiotic agents; Z91.030 Bee allergy status; Z88.9 Allergy status to unspecified drugs, medicaments and biological substances
CPT/HCPCS: 36415; 80053; 85025; 85610; 85730; 99284

== ENCOUNTER 2022-06-14 22:39 | Emergency (ER) | payer MEDICARE, OTHER ==
[2022-06-14 22:50] VITALS: BP 136/81; PULSE 89; RESP 18; TEMP 98.2
--- NOTE | 2022-06-14 22:58 | ED ---
Lower Extremity Injury HPI - General Chief Complaint: Extremity Injury, Lower Stated Complaint: Fall down 5 steps, toe pain Time Seen by Provider: 06/14/22 22:52 Source: patient, RN notes reviewed Mode of arrival: ambulatory - History of Present Illness Initial Comments: Patient tripped coming down stairs earlier today and injured her left fourth toe. She does have some radiation of pain into the foot. Pain is sharp, exacerbated by movement and palpation. Somewhat alleviated by rest. Patient is able to ambulate. No other injuries. No distal paresthesias. No headache, no fever or chills, no changes in vision or hearing, no sore throat or difficulty with speech, no neck pain, no chest pain or shortness of breath, no abdominal pain, no nausea or vomiting, no changes in urination or bowel movements, no numbness or tingling, no skin rashes or lesions. Past medical, surgical, social, and family history reviewed. MD Complaint: foot injury - Related Data Home Medications Medication Instructions Recorded Confirmed Docusate [Colace] 100 mg PO DAILY 05/22/20 05/22/20 Haloperidol Decanoate 100mg/1ml Oil 100 mg IM Q14D 05/22/20 05/22/20 Npr-Kyzl-Tcmht Acid 1 cap PO DAILY 05/22/20 05/22/20 [-U Capsule (formulary)] Previous Rx's Medication Instructions Recorded Mag Hydrox/Al Hydrox/Simeth 30 ml PO Q4HR PRN ml 06/11/20 [Maalox] Magnesium Hydroxide [Milk of 2,400 mg PO DAILY PRN ml 06/11/20 Magnesia Concentrate] Allergies Allergy/AdvReac Type Severity Reaction Status Date / Time bee pollen Allergy Unknown Unknown Verified 04/18/22 15:08 ciprofloxacin HCl Allergy Unknown Unknown Verified 04/18/22 15:08 [From Cipro] ciprofloxacin [From Cipro] Allergy Unknown Verified 04/18/22 15:08 acetaminophen [From Tylenol] AdvReac Unknown Unknown Verified 04/18/22 15:08 Review of Systems ROS Statement: Those systems with pertinent positive or pertinent negative responses have been documented in the HPI. ROS Other: All systems not noted in ROS Statement are negative. Past Medical History Past Medical History: No Reported History History of Any Multi-Drug Resistant Organisms: None Reported Past Surgical History: No Surgical Hx Reported Additional Past Surgical History / Comment(s): Myringotomy with tube placement Past Psychological History: ADD/ADHD, Anxiety, Depression, Schizoaffective Disorder Smoking Status: Current every day smoker Past Alcohol Use History: None Reported Past Drug Use History: None Reported - Past Family History Father Family Medical History: Hypertension General Exam General appearance: alert, in no apparent distress Head exam: Present: atraumatic, normocephalic, normal inspection Eye exam: Present: normal appearance, PERRL, EOMI. Absent: scleral icterus, conjunctival injection, periorbital swelling ENT exam: Present: normal exam, mucous membranes moist Neck exam: Present: normal inspection. Absent: tenderness, meningismus, lymphadenopathy Respiratory exam: Present: normal lung sounds bilaterally. Absent: respiratory distress, wheezes, rales, rhonchi, stridor Cardiovascular Exam: Present: regular rate, normal rhythm, normal heart sounds. Absent: systolic murmur, diastolic murmur, rubs, gallop, clicks GI/Abdominal exam: Present: soft. Absent: distended, tenderness, guarding, rebound, rigid Extremities exam: Present: full ROM, tenderness (Patient has tenderness to the left fourth toe, to lesser extent the dorsum of her left foot. No crepitus. No deformity.), normal capillary refill. Absent: normal inspection, pedal edema, joint swelling, calf tenderness Back exam: Present: normal inspection Neurological exam: Present: alert, oriented X3, CN II-XII intact Psychiatric exam: Present: normal affect, normal mood Skin exam: Present: warm, dry, intact, normal color. Absent: rash Course Vital Signs 06/14/22 22:46 Temperature 98.2 F Pulse Rate 89 Respiratory 18 Rate Blood Pressure 136/81 O2 Sat by Pulse 98 Oximetry Medical Decision Making - Medical Decision Making Slated injury to left fourth toe and left foot. No acute findings on x-ray. We'll discuss conservative therapy with the patient. Patient was told to return to the ER for any signs or symptoms worsen. Told to return immediately if any other problems arise. All questions answered. Treatment plan discussed. Patient in agreement Every effort has been made to ensure accuracy of this dictation. However, due to the limitations of electronic medical records and dictation devices, errors in charting still occur. Operations Dispatcher Dr. Meredith - Radiology Data Radiology results: report reviewed, image reviewed Disposition Clinical Impression: Contusion of left lesser toe(s) without damage to nail, initial encounter Disposition: HOME SELF-CARE Instructions (If sedation given, give patient instructions): Foot Contusion (ED) Additional Instructions: Follow-up with your regular physician as directed. Return to the ER immediately if any symptoms worsen, new symptoms arise, or any other problems develop. Is patient prescribed a controlled substance at d/c from ED?: No Referrals: None,Stated [Primary Care Provider] - 1-2 days Time of Disposition: 23:43
--- NOTE | 2022-06-14 23:28 | XR ---
EXAMINATION TYPE: XR foot complete LT DATE OF EXAM: 06/14/2022 COMPARISON: NONE HISTORY: Foot pain TECHNIQUE: 3 views FINDINGS: The metatarsals are intact. The toes are intact. I see no fracture nor dislocation. There i s minimal spurring at the talonavicular joint. IMPRESSION: No acute abnormality of the left foot. No fracture. The fourth toe appears intact
== END 2022-06-15 00:11 | disposition home or self-care (01) ==
LOC: EC 22:39
DX: S90.122A Contusion of left lesser toe(s) without damage to nail, initial encounter (principal); F17.200 Nicotine dependence, unspecified, uncomplicated; Z88.1 Allergy status to other antibiotic agents; Z88.8 Allergy status to other drugs, medicaments and biological substances; Z88.6 Allergy status to analgesic agent; Z91.030 Bee allergy status; W10.9XXA Fall (on) (from) unspecified stairs and steps, initial encounter
CPT/HCPCS: 99283

== ENCOUNTER 2022-07-04 15:58 | Emergency (ER) | payer MEDICARE, OTHER ==
[2022-07-04 16:10] LABS: Glucose,Whole Blood 126 mg/dL (70-110)
[2022-07-04] MEDS ORDERED: KETOROLAC 15 MG/ML 1 ML VIAL IVP STA (16:29)
[2022-07-04] MEDS ORDERED: SODIUM CHLORIDE 0.9% 1,000 ML IV STA (16:29)
--- NOTE | 2022-07-04 16:45 | XR ---
EXAMINATION TYPE: XR chest 2V DATE OF EXAM: 07/04/2022 COMPARISON: NONE HISTORY: Short of breath TECHNIQUE: 2 views FINDINGS: Heart and mediastinum are normal. Lungs are clear. Diaphragm is normal. Bony thorax is inta ct. IMPRESSION: Normal chest.
[2022-07-04 17:07] VITALS: RESP 16
[2022-07-04 17:09] LABS: Basophils # (A) 0.1 k/uL (0-0.2); Basophils % (A) 1 %; Eosinophils # (A) 0.1 k/uL (0-0.7); Eosinophils % (A) 1 %; HCT 47.3 % (34.0-46.0); HGB 15.8 gm/dL (11.4-16.0); Lymphocytes # (A) 2.3 k/uL (1.0-4.8); Lymphocytes % (A) 20 %; MCH 31.5 pg (25.0-35.0); MCHC 33.4 g/dL (31.0-37.0); MCV 94.4 fL (80.0-100.0); Mean Platelet Volume 7.2; Monocytes # (A) 0.5 k/uL (0-1.0); Monocytes % (A) 4 %; Neutrophils % (A) 72 %; Platelet Count 234 k/uL (150-450); RBC 5.01 m/uL (3.80-5.40); RDW 12.4 % (11.5-15.5); WBC 11.1 k/uL (3.8-10.6)
[2022-07-04 17:30] LABS: African American GFR (CKD) >90 (>60 ml/min/1.73 sqM); Anion Gap 11 mmol/L; Blood Urea Nitrogen 13 mg/dL (7-17); Calcium 9.2 mg/dL (8.4-10.2); Carbon Dioxide 23 mmol/L (22-30); Chloride 105 mmol/L (98-107); Glucose 99 mg/dL (74-99); Non-African American GFR(CKD) >90 (>60 ml/min/1.73 sqM); Potassium 4.1 mmol/L (3.5-5.1); Sodium 139 mmol/L (137-145)
--- NOTE | 2022-07-04 18:09 | ED ---
General Adult HPI - General Chief complaint: Upper Respiratory Infection Stated complaint: Headache/SOB Time Seen by Provider: 07/04/22 16:05 Source: patient Mode of arrival: ambulatory Limitations: no limitations - History of Present Illness Initial comments: Patient is a 31-year-old female who presents emergency Department complaining of a headache that she currently does not have as well as shortness of breath. States she has also had some episodes of nausea and vomiting and diarrhea over the last few days. Is concerned she may have COVID-19. Denies any sick contacts. Denies any fevers. Denies any chest pain or shortness breath. Denies any current abdominal pain. Denies any urinary complaints. she has no other acute complaints at this time. Presents for further evaluation. - Related Data Home Medications Medication Instructions Recorded Confirmed Docusate [Colace] 100 mg PO DAILY 05/22/20 05/22/20 Haloperidol Decanoate 100mg/1ml Oil 100 mg IM Q14D 05/22/20 05/22/20 Bqm-Mppw-Zsimq Acid 1 cap PO DAILY 05/22/20 05/22/20 [-U Capsule (formulary)] Previous Rx's Medication Instructions Recorded Mag Hydrox/Al Hydrox/Simeth 30 ml PO Q4HR PRN ml 06/11/20 [Maalox] Magnesium Hydroxide [Milk of 2,400 mg PO DAILY PRN ml 06/11/20 Magnesia Concentrate] Allergies Allergy/AdvReac Type Severity Reaction Status Date / Time bee pollen Allergy Unknown Unknown Verified 07/04/22 16:04 ciprofloxacin HCl Allergy Unknown Unknown Verified 07/04/22 16:04 [From Cipro] ciprofloxacin [From Cipro] Allergy Unknown Verified 07/04/22 16:04 acetaminophen [From Tylenol] AdvReac Unknown Unknown Verified 07/04/22 16:04 Review of Systems ROS Statement: Those systems with pertinent positive or pertinent negative responses have been documented in the HPI. Review of Systems: CONST: Denies fever EYES: Denies blurry vision ENT: Endorses nasal congestion C/V: Denies Chest pain RESP: Denies shortness of breath GI: Denies abdominal pain : Denies dysuria SKIN: Denies rash. MSK: Denies joint pain. NEURO: Endorses mild headache ROS Other: All systems not noted in ROS Statement are negative. Past Medical History Past Medical History: No Reported History History of Any Multi-Drug Resistant Organisms: None Reported Past Surgical History: No Surgical Hx Reported Additional Past Surgical History / Comment(s): Myringotomy with tube placement Past Psychological History: ADD/ADHD, Anxiety, Depression, Schizoaffective Disorder Smoking Status: Current every day smoker Past Alcohol Use History: None Reported Past Drug Use History: None Reported - Past Family History Father Family Medical History: Hypertension General Exam - General Exam Comments Initial Comments: General: Appears in no acute distress. HEAD: Normal with no signs of head trauma. EYES: PERRLA, EOMI, conjunctiva normal, no discharge. ENT: Hearing grossly intact, normal oropharynx. RESPIRATORY: Clear breath sounds bilaterally. No wheezes, rales, or rhonchi. C/V: Regular rate and rhythm. S1 and S2 auscultated, no edema, peripheral pulses 2+ and intact throughout ABD: Abd is soft, nontender, nondistended EXT: Normal range of motion, no obvious deformity SKIN: No rashes or lesions observed on exposed skin. NEURO: Alert and oriented 4. Limitations: no limitations Course Vital Signs 07/04/22 07/04/22 07/04/22 16:00 17:03 18:25 Temperature 98.0 F 98.5 F 98.9 F Pulse Rate 82 75 68 Respiratory 20 16 16 Rate Blood Pressure 109/60 122/57 120/81 O2 Sat by Pulse 97 98 98 Oximetry Medical Decision Making - Medical Decision Making Based on the patient's presentation and physical exam, I do believe she is likely experiencing a upper respiratory illness. Concern for COVID-19. We'll obtain viral swabs. She is also expressing concern over repeated episodes of diarrhea and nausea. We will obtain basic labs to ensure there is no dehydration. She was in agreement this plan. Chest x-ray will also be obtained. Chest x-ray shows no acute cardio pulmonary process. Laboratory studies are remarkable for negative Covid to, influenza test. The remainder the labs are unremarkable. I updated the patient. Vital signs remained within normal limits. She is feeling improved. I beleive it is safe to be discharged home at this time. She was in agreement this plan. I instructed the patient to follow up with their PCP in the next 1-3 days. I explained that the patient should return to the emergency department if they experience any worsening symptoms. Strict return precautions were discussed with the patient. The patient expressed understanding of these instructions. I answered all questions that the patient had. The patient was discharged home in good condition with their prescriptions and follow up information. - Lab Data Result diagrams: 07/04/22 17:00 07/04/22 17:00 Lab Results 07/04/22 07/04/22 07/04/22 Range/Units 16:08 16:37 16:37 WBC (3.8-10.6) k/uL RBC (3.80-5.40) m/uL Hgb (11.4-16.0) gm/dL Hct (34.0-46.0) % MCV (80.0-100.0) fL MCH (25.0-35.0) pg MCHC (31.0-37.0) g/dL RDW (11.5-15.5) % Plt Count (150-450) k/uL MPV Neutrophils % % Lymphocytes % % Monocytes % % Eosinophils % % Basophils % % Neutrophils # (1.3-7.7) k/uL Lymphocytes # (1.0-4.8) k/uL Monocytes # (0-1.0) k/uL Eosinophils # (0-0.7) k/uL Basophils # (0-0.2) k/uL Sodium (137-145) mmol/L Potassium (3.5-5.1) mmol/L Chloride (98-107) mmol/L Carbon Dioxide (22-30) mmol/L Anion Gap mmol/L BUN (7-17) mg/dL Creatinine (0.52-1.04) mg/dL Est GFR (CKD-EPI)AfAm (>60 ml/min/1.73 sqM) Est GFR (CKD-EPI)NonAf (>60 ml/min/1.73 sqM) Glucose (74-99) mg/dL POC Glucose (mg/dL) 126 H (70-110) mg/dL POC Glu Quenching Machine Operator ID [place] Calcium (8.4-10.2) mg/dL Coronavirus (PCR) Not Detected (Not Detectd) Influenza Type A RNA Not Detected (Not Detectd) Influenza Type B (PCR) Not Detected (Not Detectd) 07/04/22 07/04/22 Range/Units 17:00 17:00 WBC 11.1 H (3.8-10.6) k/uL RBC 5.01 (3.80-5.40) m/uL Hgb 15.8 (11.4-16.0) gm/dL Hct 47.3 H (34.0-46.0) % MCV 94.4 (80.0-100.0) fL MCH 31.5 (25.0-35.0) pg MCHC 33.4 (31.0-37.0) g/dL RDW 12.4 (11.5-15.5) % Plt Count 234 (150-450) k/uL MPV 7.2 Neutrophils % 72 % Lymphocytes % 20 % Monocytes % 4 % Eosinophils % 1 % Basophils % 1 % Neutrophils # 8.0 H (1.3-7.7) k/uL Lymphocytes # 2.3 (1.0-4.8) k/uL Monocytes # 0.5 (0-1.0) k/uL Eosinophils # 0.1 (0-0.7) k/uL Basophils # 0.1 (0-0.2) k/uL Sodium 139 (137-145) mmol/L Potassium 4.1 (3.5-5.1) mmol/L Chloride 105 (98-107) mmol/L Carbon Dioxide 23 (22-30) mmol/L Anion Gap 11 mmol/L BUN 13 (7-17) mg/dL Creatinine 0.84 (0.52-1.04) mg/dL Est GFR (CKD-EPI)AfAm >90 (>60 ml/min/1.73 sqM) Est GFR (CKD-EPI)NonAf >90 (>60 ml/min/1.73 sqM) Glucose 99 (74-99) mg/dL POC Glucose (mg/dL) (70-110) mg/dL POC Glu Quenching Machine Operator ID Calcium 9.2 (8.4-10.2) mg/dL Coronavirus (PCR) (Not Detectd) Influenza Type A RNA (Not Detectd) Influenza Type B (PCR) (Not Detectd) Disposition Clinical Impression: URI (upper respiratory infection) Disposition: HOME SELF-CARE Condition: Good Instructions (If sedation given, give patient instructions): Upper Respiratory Infection (ED) Is patient prescribed a controlled substance at d/c from ED?: No Referrals: [facility] [Primary Care Provider] - 1-2 days Time of Disposition: 18:05
[2022-07-04 19:23] VITALS: BP 120/81; PULSE 68; TEMP 98.9
== END 2022-07-04 18:25 | disposition home or self-care (01) ==
LOC: EC 15:58
DX: J06.9 Acute upper respiratory infection, unspecified (principal); F41.9 Anxiety disorder, unspecified; F17.200 Nicotine dependence, unspecified, uncomplicated; F90.9 Attention-deficit hyperactivity disorder, unspecified type; F32.A Depression, unspecified; Z20.822 Contact with and (suspected) exposure to COVID-19; Z91.030 Bee allergy status; Z88.1 Allergy status to other antibiotic agents; Z79.899 Other long term (current) drug therapy; Z88.6 Allergy status to analgesic agent
CPT/HCPCS: 99284 ×2; 96374 ×2; 96361 ×2; 36415; 80048; 85025; 87502; 87635; 71046; J1885

== ENCOUNTER 2022-07-22 11:36 | Emergency (ER) | payer MEDICARE, OTHER ==
[2022-07-22 12:30] VITALS: TEMP 98.4
[2022-07-22] MEDS ORDERED: IPRATROPIUM-ALBUTEROL 3 ML NEB INHALATION STA (14:46)
[2022-07-22] MEDS ORDERED: predniSONE 20 MG TAB PO STA (14:46)
--- NOTE | 2022-07-22 15:01 | XR ---
EXAMINATION TYPE: XR chest 2V DATE OF EXAM: 07/22/2022 2:53 PM COMPARISON: Chest radiographs from 07/04/2022 TECHNIQUE: XR chest 2V Frontal and lateral views of the chest. CLINICAL INDICATION:Female, 32 years old with history of wheezing; FINDINGS: Lungs/Pleura: Bibasilar atelectasis. No evidence for pneumothorax pleural effusion or focal consolida tion. Mild peribronchial cuffing noted. Pulmonary vascularity: Unremarkable. Heart/mediastinum: Cardiomediastinal silhouette is unremarkable. Musculoskeletal: No acute osseous pathology. IMPRESSION: Mild peribronchial cuffing correlate for for asthma.
--- NOTE | 2022-07-22 15:08 | ED ---
URI HPI - General Chief Complaint: Upper Respiratory Infection Stated Complaint: covid test Time Seen by Provider: 07/22/22 12:31 Source: patient Mode of arrival: ambulatory Limitations: no limitations - History of Present Illness Initial Comments: 32-year-old female with past medical history of tension presents to the emergency department with cough and sinus pressure. Was seen in the emergency department 2 weeks ago for similar complaint. States that she was negative for Covid. She felt better for 2 days however states her symptoms worsen. Has frontal pressure, nasal congestion and a scratchy throat. Requesting Covid testing as she does live in a house with several other people. She denies chest pain. Nonproductive cough. No shortness of breath. No history of asthma. Patient is a smoker. No concern for . No other alleviating, precipitating or modifying factors - Related Data Home Medications Medication Instructions Recorded Confirmed Docusate [Colace] 100 mg PO DAILY 05/22/20 05/22/20 Haloperidol Decanoate 100mg/1ml Oil 100 mg IM Q14D 05/22/20 05/22/20 Piu-Sudf-Bouga Acid 1 cap PO DAILY 05/22/20 05/22/20 [-U Capsule (formulary)] Previous Rx's Medication Instructions Recorded Mag Hydrox/Al Hydrox/Simeth 30 ml PO Q4HR PRN ml 06/11/20 [Maalox] Magnesium Hydroxide [Milk of 2,400 mg PO DAILY PRN ml 06/11/20 Magnesia Concentrate] Albuterol Inhaler [Ventolin Hfa 2 puff INHALATION QID #8 gm 07/22/22 Inhaler] Azithromycin [Zithromax Z Pack] 1 tab PO DIRECTED #6 tab 07/22/22 predniSONE [Deltasone] 20 mg PO BID #10 tab 07/22/22 Allergies Allergy/AdvReac Type Severity Reaction Status Date / Time bee pollen Allergy Unknown Unknown Verified 07/22/22 12:30 ciprofloxacin HCl Allergy Unknown Unknown Verified 07/22/22 12:30 [From Cipro] ciprofloxacin [From Cipro] Allergy Unknown Verified 07/22/22 12:30 acetaminophen [From Tylenol] AdvReac Unknown Unknown Verified 07/22/22 12:30 Review of Systems ROS Statement: Those systems with pertinent positive or pertinent negative responses have been documented in the HPI. ROS Other: All systems not noted in ROS Statement are negative. Past Medical History Past Medical History: Hyperlipidemia History of Any Multi-Drug Resistant Organisms: None Reported Past Surgical History: Ear Surgery Additional Past Surgical History / Comment(s): Myringotomy with tube placement Past Psychological History: ADD/ADHD, Anxiety, Depression, Schizoaffective Disorder Smoking Status: Current every day smoker Past Alcohol Use History: None Reported Past Drug Use History: None Reported - Past Family History Father Family Medical History: Hypertension General Exam Limitations: no limitations General appearance: alert, in no apparent distress Head exam: Present: atraumatic, normocephalic, normal inspection Eye exam: Present: normal appearance, PERRL, EOMI. Absent: scleral icterus, conjunctival injection, periorbital swelling ENT exam: Present: normal exam, mucous membranes moist Neck exam: Present: normal inspection. Absent: tenderness, meningismus, lymphadenopathy Respiratory exam: Present: normal lung sounds bilaterally. Absent: respiratory distress, wheezes, rales, rhonchi, stridor Cardiovascular Exam: Present: regular rate, normal rhythm, normal heart sounds. Absent: systolic murmur, diastolic murmur, rubs, gallop, clicks GI/Abdominal exam: Present: soft, normal bowel sounds. Absent: distended, tenderness, guarding, rebound, rigid Extremities exam: Present: normal inspection, full ROM, normal capillary refill. Absent: tenderness, pedal edema, joint swelling, calf tenderness Back exam: Present: normal inspection Neurological exam: Present: alert, oriented X3, CN II-XII intact Psychiatric exam: Present: normal affect, normal mood Skin exam: Present: warm, dry, intact, normal color. Absent: rash Course Vital Signs 07/22/22 07/22/22 07/22/22 12:26 14:21 14:58 Temperature 98.4 F Pulse Rate 87 85 95 Respiratory 16 16 18 Rate Blood Pressure 123/90 140/86 O2 Sat by Pulse 95 96 Oximetry 07/22/22 07/22/22 15:06 15:34 Temperature Pulse Rate 95 86 Respiratory 18 16 Rate Blood Pressure 140/80 O2 Sat by Pulse 99 Oximetry Medical Decision Making - Medical Decision Making Upon arrival patient is placed into hallway 26. Covid test is negative. Chest x-rays performed which demonstrates mild perirectal coughing. Patient does have wheezing to the right lung. She is given a DuoNeb breathing treatment and 60 g of prednisone. Patient will be discharged home on an albuterol inhaler, prednisone and an azithromycin pack. She is to follow-up with primary care doctor in 2-4 days and return for any new worsening symptoms. Patient was discharged home in stable condition - Lab Data Lab Results 07/22/22 Range/Units 12:32 Coronavirus (PCR) Not Detected (Not Detectd) Disposition Clinical Impression: URI (upper respiratory infection) Disposition: HOME SELF-CARE Condition: Stable Instructions (If sedation given, give patient instructions): Upper Respiratory Infection (ED) Additional Instructions: Please use the inhaler every 4 hours. Take the steroids and antibiotics as directed. Follow-up with your primary care doctor in 2-4 days and return for any new or worsening symptoms Prescriptions: predniSONE [Deltasone] 20 mg PO BID #10 tab Albuterol Inhaler [Ventolin Hfa Inhaler] 2 puff INHALATION QID #8 gm Azithromycin [Zithromax Z Pack] 1 tab PO DIRECTED #6 tab Is patient prescribed a controlled substance at d/c from ED?: No Referrals: [facility] [Primary Care Provider] - 1-2 days Time of Disposition: 15:08
[2022-07-22 15:34] VITALS: BP 140/80; PULSE 86; RESP 16
== END 2022-07-22 15:34 | disposition home or self-care (01) ==
LOC: EC 11:36
DX: J06.9 Acute upper respiratory infection, unspecified (principal); E78.5 Hyperlipidemia, unspecified; F41.9 Anxiety disorder, unspecified; F32.A Depression, unspecified; F17.200 Nicotine dependence, unspecified, uncomplicated; Z91.030 Bee allergy status; Z88.1 Allergy status to other antibiotic agents; Z88.6 Allergy status to analgesic agent; Z79.51 Long term (current) use of inhaled steroids; Z79.899 Other long term (current) drug therapy; Z20.822 Contact with and (suspected) exposure to COVID-19
CPT/HCPCS: 94640; 87635; 71046; 99283; J7512

== ENCOUNTER 2022-11-11 10:54 | Day surgery (SDC) | payer MEDICARE, OTHER ==
[2022-09-28 14:20] VITALS: BMI 43.2
[~2022-11-11 10:54] MED LIST: LACTATED RINGERS 1,000 ML IV SCH; ONDANSETRON 4 MG/2 ML VIAL IVP PRN
[2022-11-11 12:04] VITALS: TEMP 97.1
[2022-11-11 12:16] LABS: Glucose,Whole Blood 104 mg/dL (70-110)
[2022-11-11] MEDS ORDERED: PROPOFOL 10 MG/ML 20 ML VIAL IV ONE (12:18)
--- NOTE | 2022-11-11 12:36 | P.PCN ---
Date of Procedure: 11/11/22 Procedure(s) Performed: BRIEF HISTORY: Patient is a 32-year-old pleasant female scheduled for an elective colonoscopy as a part of evaluation of blood in the stool. PROCEDURE PERFORMED: Colonoscopy. PREOPERATIVE DIAGNOSIS: Blood in the stool IV sedation per Anesthesia. PROCEDURE: After informed consent was obtained, the patient, was brought into the endoscopy unit. IV sedation was administered by Anesthesia under continuous monitoring. Digital rectal examination was normal. Initially the Olympus CF-160 flexible video colonoscope was then inserted in the rectum, gradually advanced into the cecum without any difficulty. Careful examination was performed as the scope was gradually being withdrawn. Ileocecal valve and the appendiceal orifice were visualized and appeared normal. Prep was excellent. Mucosa of the cecum, ascending colon, transverse colon, descending colon, sigmoid colon, and rectum appeared normal. Retroflexion was performed in the rectum and no lesions were seen. The patient tolerated the procedure well. IMPRESSION: Normal-appearing colon from rectum to cecum with no evidence of colorectal neoplasia. RECOMMENDATIONS: Findings of this examination were discussed with the patient as well as a family. She was advised to have a repeat screening colonoscopy at age 44.
[2022-11-11 13:10] VITALS: BP 108/77; PULSE 81; RESP 20
== END 2022-11-11 13:26 | disposition home or self-care (01) ==
LOC: ORWHC2ENDO 10:54
PROVIDERS: ATTEND Internal Medicine Gastroenterology
DX: R19.5 Other fecal abnormalities (principal); I10 Essential (primary) hypertension; E78.5 Hyperlipidemia, unspecified; F41.9 Anxiety disorder, unspecified; F32.A Depression, unspecified; F20.9 Schizophrenia, unspecified; Z88.5 Allergy status to narcotic agent; Z88.1 Allergy status to other antibiotic agents; Z91.030 Bee allergy status; F90.9 Attention-deficit hyperactivity disorder, unspecified type; R56.9 Unspecified convulsions; Z79.02 Long term (current) use of antithrombotics/antiplatelets; Z79.83 Long term (current) use of bisphosphonates; Z79.891 Long term (current) use of opiate analgesic; Z79.899 Other long term (current) drug therapy
CPT/HCPCS: 81025; 45378; J2704

== ENCOUNTER 2024-04-10 02:34 | Emergency (ER) | payer MEDICARE, OTHER ==
[2024-04-10 03:15] VITALS: TEMP 98.4
[2024-04-10 03:31] LABS: ALT 17 U/L (4-34); AST 25 U/L (14-36); African American GFR (CKD) >90 (>60 ml/min/1.73 sqM); Albumin 4.3 g/dL (3.5-5.0); Alkaline Phosphatase 47 U/L (38-126); Anion Gap 6 mmol/L; Blood Urea Nitrogen 16 mg/dL (7-17); Calcium 8.8 mg/dL (8.4-10.2); Carbon Dioxide 22 mmol/L (22-30); Chloride 103 mmol/L (98-107); Glucose 121 mg/dL (74-99); Non-African American GFR(CKD) >90 (>60 ml/min/1.73 sqM); Potassium 4.2 mmol/L (3.5-5.1); Sodium 131 mmol/L (137-145); Total Bilirubin 0.8 mg/dL (0.2-1.3); Total Protein 6.5 g/dL (6.3-8.2)
[2024-04-10 03:44] LABS: Basophils % (A) 0 %; Eosinophils # (A) 0.1 k/uL (0-0.7); Eosinophils % (A) 1 %; HCT 53.9 % (34.0-46.0); HGB 17.7 gm/dL (11.4-16.0); Lymphocytes # (A) 0.6 k/uL (1.0-4.8); Lymphocytes % (A) 4 %; MCH 31.9 pg (25.0-35.0); MCHC 32.9 g/dL (31.0-37.0); Mean Platelet Volume 7.4; Monocytes # (A) 0.4 k/uL (0-1.0); Monocytes % (A) 3 %; Neutrophils # (A) 13.4 k/uL (1.3-7.7); Neutrophils % (A) 92 %; Platelet Count 187 k/uL (150-450); RBC 5.55 m/uL (3.80-5.40); WBC 14.6 k/uL (3.8-10.6)
[2024-04-10] MEDS: SODIUM CHLORIDE 0.9% 1,000 ML IV ONE (04:05)
--- NOTE | 2024-04-10 04:37 | ED ---
General Adult HPI - General Chief complaint: Nausea/Vomiting/Diarrhea Stated complaint: NVD Time Seen by Provider: 04/10/24 03:14 Source: patient, EMS, RN notes reviewed, old records reviewed Mode of arrival: EMS Limitations: no limitations - History of Present Illness Initial comments: 33-year-old female presents for evaluation of nausea vomiting and diarrhea. Symptoms began several hours prior to arrival with significant vomiting as well as diarrhea. She has nausea without abdominal pain. No fever. She states she does not recall eating any questionable food and the symptoms began abruptly. - Related Data Home Medications Medication Instructions Recorded Confirmed Linaclotide [Linzess] 145 mcg PO DAILY 09/28/22 11/11/22 metFORMIN HCL [Glucophage] 500 mg PO HS 09/28/22 11/11/22 Metoprolol Succinate [Metoprolol 12.5 mg PO BID 11/06/22 11/11/22 Succinate ER] OLANZapine 7.5 mg PO HS 11/06/22 11/11/22 Rosuvastatin [Crestor] 10 mg PO DAILY 11/06/22 11/11/22 Simethicone [Gas-X] 80 mg PO QID PRN 11/06/22 11/11/22 hydroCHLOROthiazide [Hydrodiuril] 12.5 mg PO DAILY 11/06/22 11/11/22 Allergies Allergy/AdvReac Type Severity Reaction Status Date / Time bee pollen Allergy Unknown Unknown Verified 04/10/24 02:40 ciprofloxacin HCl Allergy Unknown Unknown Verified 04/10/24 02:40 [From Cipro] ciprofloxacin [From Cipro] Allergy Unknown Verified 04/10/24 02:40 peanut Allergy Anaphylaxis Verified 04/10/24 02:54 Review of Systems ROS Statement: Those systems with pertinent positive or pertinent negative responses have been documented in the HPI. ROS Other: All systems not noted in ROS Statement are negative. Past Medical History Past Medical History: Hyperlipidemia, Seizure Disorder Additional Past Medical History / Comment(s): "seizure x 1 from narcan", "temporary paralyzed colon", constipation, "light cirrhosis", hypoglycemia- Nimisha @fpc unsure about her hx.-this fpc is temporary situation for pt., finishing A/B for bronchitis, unsure if pt. is diabetic, thinks takes metformin for weight loss History of Any Multi-Drug Resistant Organisms: None Reported Past Surgical History: Ear Surgery Additional Past Surgical History / Comment(s): pt not sure of past surgeries Past Anesthesia/Blood Transfusion Reactions: No Reported Reaction, Unable to Obtain Additional Past Anesthesia/Blood Transfusion Reaction / Comment(s): group care worker unaware Past Psychological History: ADD/ADHD, Anxiety, Depression, Schizoaffective Disorder Smoking Status: Current every day smoker Past Alcohol Use History: None Reported Past Drug Use History: None Reported - Past Family History Father Family Medical History: Unable to Obtain General Exam Limitations: no limitations General appearance: alert, in no apparent distress Head exam: Present: atraumatic, normocephalic Eye exam: Present: normal appearance, PERRL Neck exam: Present: normal inspection Respiratory exam: Present: normal lung sounds bilaterally. Absent: respiratory distress, wheezes Cardiovascular Exam: Present: regular rate, normal rhythm GI/Abdominal exam: Present: soft. Absent: distended, tenderness, guarding Extremities exam: Present: normal inspection, normal capillary refill Neurological exam: Present: alert, oriented X3, CN II-XII intact. Absent: motor sensory deficit Psychiatric exam: Present: normal affect, normal mood Skin exam: Present: warm, dry, intact. Absent: cyanosis, diaphoretic Course Vital Signs 04/10/24 02:35 Temperature 98.4 F Pulse Rate 91 Respiratory 18 Rate Blood Pressure 102/69 O2 Sat by Pulse 97 Oximetry - Reevaluation(s) Reevaluation #1: 04/10/24 04:36 Patient reevaluated, nausea has improved no further vomiting. No abdominal pain. Reevaluation #2: 04/10/24 05:30 Patient reevaluated, no abdominal pain, nausea improved and able to tolerate oral liquids Medical Decision Making - Medical Decision Making Was pt. sent in by a medical professional or institution (, PA, STAFF RADIOGRAPHER, urgent care, hospital, or longterm...) When possible be specific @ -No Did you speak to anyone other than the patient for history (EMS, parent, family, police, friend...)? What history was obtained from this source @ -No Did you review nursing and triage notes (agree or disagree)? Why? @ -I reviewed and agree with nursing and triage notes Were old charts reviewed (outside hosp., previous admission, EMS record, old EKG , old radiological studies, urgent care reports/EKG's, longterm records)? Report findings @ -No old charts were reviewed Differential Abdominal Pain Women: Appendicitis, Cholecystitis, diverticulosis, ischemic bowel, pancreatitis, hepatitis, UTI, gastroenteritis, AAA, incarcerated hernia, bowel obstruction, constipation, inflammatory bowel, hepatitis, peptic ulcer disease, splenic infarction, perforated viscus, vulvitis, ovarian torsion, PID, kidney stone, placenta abruption, this is not meant to be an all-inclusive list EKG interpreted by me (3pts min.). @ -As above X-rays interpreted by me (1pt min.). @ -None done CT interpreted by me (1pt min.). @ -None done U/S interpreted by me (1pt. min.). @ -None done What testing was considered but not performed or refused? (CT, X-rays, U/S, labs)? Why? @ -None What meds were considered but not given or refused? Why? @ -None Did you discuss the management of the patient with other professionals (professionals i.e. , PA, STAFF RADIOGRAPHER, lab, RT, psych nurse, social worker school, day worker, teacher, precinct commanding officer, community case manager)? Give summary @ -No Was smoking cessation discussed for >3mins.? @ -No Was critical care preformed (if so, how long)? @ -No Were there social determinants of health that impacted care today? How? (Homelessness, low income, unemployed, alcoholism, drug addiction, transportation, low edu. Level, literacy, decrease access to med. care, half-way, rehab)? @ -No Was there de-escalation of care discussed even if they declined (Discuss DNR or withdrawal of care, Hospice)? DNR status @ -No What co-morbidities impacted this encounter? (DM, HTN, Smoking, COPD, CAD, Cancer, CVA, ARF, Chemo, Hep., AIDS, mental health diagnosis, sleep apnea, morbid obesity)? @ -None Was patient admitted / discharged? Hospital course, mention meds given and route, prescriptions, significant lab abnormalities, going to OR and other pertinent info. @ -33-year-old female with nausea vomiting diarrhea. Symptoms began acutely and she states that other people in her household have had a gastrointestinal illness. She has no abdominal pain specifically just nausea. She does have a leukocytosis and elevated hemoglobin suggestive of dehydration. She is given IV fluids and antiemetics by paramedics. She is observed in the emergency dep artment with significant improvement in symptoms. She is given return parameters and instructed to return to the emergency department with abdominal pain or recurrent vomiting. Undiagnosed new problem with uncertain prognosis? @ -No Drug Therapy requiring intensive monitoring for toxicity (Heparin, Nitro, Insulin, Cardizem)? @ -No Were any procedures done? @ -No Diagnosis/symptom? @ -Nausea vomiting diarrhea Acute, or Chronic, or Acute on Chronic? @Acute Uncomplicated (without systemic symptoms) or Complicated (systemic symptoms)? @ -Default Side effects of treatment? @ -No Exacerbation, Progression, or Severe Exacerbation? @ -No Poses a threat to life or bodily function? How? (Chest pain, [place], [place], pneumonia, PE, COPD, DKA, ARF, appy, cholecystitis, CVA, Diverticulitis, Homicidal, Suicidal, threat to staff... and all critical care pts) @ -Low risk at this time - Lab Data Result diagrams: 04/10/24 02:42 04/10/24 02:42 Lab Results 04/10/24 04/10/24 04/10/24 Range/Units 02:42 02:42 03:30 WBC 14.6 H (3.8-10.6) k/uL RBC 5.55 H (3.80-5.40) m/uL Hgb 17.7 H (11.4-16.0) gm/dL Hct 53.9 H (34.0-46.0) % MCV 97.0 (80.0-100.0) fL MCH 31.9 (25.0-35.0) pg MCHC 32.9 (31.0-37.0) g/dL RDW 12.0 (11.5-15.5) % Plt Count 187 (150-450) k/uL MPV 7.4 Neutrophils % 92 % Lymphocytes % 4 % Monocytes % 3 % Eosinophils % 1 % Basophils % 0 % Neutrophils # 13.4 H (1.3-7.7) k/uL Lymphocytes # 0.6 L (1.0-4.8) k/uL Monocytes # 0.4 (0-1.0) k/uL Eosinophils # 0.1 (0-0.7) k/uL Basophils # 0.0 (0-0.2) k/uL Sodium 131 L (137-145) mmol/L Potassium 4.2 (3.5-5.1) mmol/L Chloride 103 (98-107) mmol/L Carbon Dioxide 22 (22-30) mmol/L Anion Gap 6 mmol/L BUN 16 (7-17) mg/dL Creatinine 0.68 (0.52-1.04) mg/dL Est GFR (CKD-EPI)AfAm >90 (>60 ml/min/1.73 sqM) Est GFR (CKD-EPI)NonAf >90 (>60 ml/min/1.73 sqM) Glucose 121 H (74-99) mg/dL Calcium 8.8 (8.4-10.2) mg/dL Total Bilirubin 0.8 (0.2-1.3) mg/dL AST 25 (14-36) U/L ALT 17 (4-34) U/L Alkaline Phosphatase 47 (38-126) U/L Total Protein 6.5 (6.3-8.2) g/dL Albumin 4.3 (3.5-5.0) g/dL Urine Color Yellow Urine Appearance Cloudy H (Clear) Urine pH 5.5 (5.0-8.0) Ur Specific [place] 1.016 (1.001-1.035) Urine Protein Trace H (Negative) Urine Glucose (UA) Negative (Negative) Urine Ketones Negative (Negative) Urine Blood Negative (Negative) Urine Nitrite Negative (Negative) Urine Bilirubin Negative (Negative) Urine Urobilinogen <2.0 (<2.0) mg/dL Ur Leukocyte Esterase Negative (Negative) Urine RBC 2 (0-5) /hpf Urine WBC 3 (0-5) /hpf Ur Squamous Epith Cells 4 (0-4) /hpf Urine Bacteria Moderate H (None) /hpf Hyaline Casts 8 H (0-2) /lpf Urine Mucus Occasional H (None) /hpf Urine Yeast (Budding) Rare H (None) /hpf Urine HCG, Qual (Not Detectd) 04/10/24 Range/Units 03:30 WBC (3.8-10.6) k/uL RBC (3.80-5.40) m/uL Hgb (11.4-16.0) gm/dL Hct (34.0-46.0) % MCV (80.0-100.0) fL MCH (25.0-35.0) pg MCHC (31.0-37.0) g/dL RDW (11.5-15.5) % Plt Count (150-450) k/uL MPV Neutrophils % % Lymphocytes % % Monocytes % % Eosinophils % % Basophils % % Neutrophils # (1.3-7.7) k/uL Lymphocytes # (1.0-4.8) k/uL Monocytes # (0-1.0) k/uL Eosinophils # (0-0.7) k/uL Basophils # (0-0.2) k/uL Sodium (137-145) mmol/L Potassium (3.5-5.1) mmol/L Chloride (98-107) mmol/L Carbon Dioxide (22-30) mmol/L Anion Gap mmol/L BUN (7-17) mg/dL Creatinine (0.52-1.04) mg/dL Est GFR (CKD-EPI)AfAm (>60 ml/min/1.73 sqM) Est GFR (CKD-EPI)NonAf (>60 ml/min/1.73 sqM) Glucose (74-99) mg/dL Calcium (8.4-10.2) mg/dL Total Bilirubin (0.2-1.3) mg/dL AST (14-36) U/L ALT (4-34) U/L Alkaline Phosphatase (38-126) U/L Total Protein (6.3-8.2) g/dL Albumin (3.5-5.0) g/dL Urine Color Urine Appearance (Clear) Urine pH (5.0-8.0) Ur Specific [place] (1.001-1.035) Urine Protein (Negative) Urine Glucose (UA) (Negative) Urine Ketones (Negative) Urine Blood (Negative) Urine Nitrite (Negative) Urine Bilirubin (Negative) Urine Urobilinogen (<2.0) mg/dL Ur Leukocyte Esterase (Negative) Urine RBC (0-5) /hpf Urine WBC (0-5) /hpf Ur Squamous Epith Cells (0-4) /hpf Urine Bacteria (None) /hpf Hyaline Casts (0-2) /lpf Urine Mucus (None) /hpf Urine Yeast (Budding) (None) /hpf Urine HCG, Qual Not Detected (Not Detectd) Disposition Clinical Impression: Dehydration, Nausea vomiting and diarrhea Disposition: HOME SELF-CARE Condition: Fair Instructions (If sedation given, give patient instructions): Acute Nausea and Vomiting in Children (ED), Acute Diarrhea (ED) Is patient prescribed a controlled substance at d/c from ED?: No Referrals: Tu Drake MD [Primary Care Provider] - 1-2 days Time of Disposition: 05:32
[2024-04-10 04:53] LABS: Appearance,Urine Cloudy (Clear); Bacteria,Urine Moderate /hpf; Bilirubin,Urine Negative (Negative); Blood,Urine Negative (Negative); Budding Yeast,Urine Rare /hpf; Color,Urine Yellow; Glucose,Urine (UA) Negative (Negative); Hyaline Casts,Urine 8 /lpf (0-2); Ketones,Urine Negative (Negative); Leukocyte Esterase,Urine Negative (Negative); Mucus,Urine Occasional /hpf; Nitrite,Urine Negative (Negative); PH, Urine 5.5 (5.0-8.0); Protein,Urine Trace (Negative); RBC,Urine 2 /hpf (0-5); Specific Gravity,Urine 1.016 (1.001-1.035); Squamous Epithelial Cell,Urine 4 /hpf (0-4); Urobilinogen,Urine <2.0 mg/dL (<2.0); WBC,Urine 3 /hpf (0-5)
[2024-04-10 06:11] VITALS: BP 98/65; PULSE 84; RESP 16
== END 2024-04-10 05:38 | disposition home or self-care (01) ==
LOC: EC 02:34
DX: E86.0 Dehydration (principal); R19.7 Diarrhea, unspecified; R11.2 Nausea with vomiting, unspecified; F17.200 Nicotine dependence, unspecified, uncomplicated; Z88.1 Allergy status to other antibiotic agents; Z91.030 Bee allergy status; Z88.8 Allergy status to other drugs, medicaments and biological substances
CPT/HCPCS: 36415; 80053; 81001; 81025; 85025; 96360; 99284

== ENCOUNTER → 2024-07-06 | Outpatient (CLI) | payer MEDICARE, OTHER ==
--- NOTE | 2024-07-06 14:17 | MR ---
EXAMINATION TYPE: MR pituitary wo/w con DATE OF EXAM: 07/06/2024 1:16 PM CLINICAL INDICATION: Female, 33 years old with history of R79.89 elevated prolactin level; [facility], [place] erik prolactin level, dizziness COMPARISON: None TECHNIQUE: Multi planar, multi sequence imaging was performed through the brain. Specialized thin s equences were obtained through the pituitary gland/sella turcica. Pre-and post gadolinium sequences were obtained. IV Contrast: 8 cc Gadavist FINDINGS: The birch-white junctions, ventricular system, and basal cisterns appear unremarkable. The morphology of the pituitary gland is within normal limits. The pituitary stalk is not deviated. After administ ration of gadolinium, homogeneous pituitary enhancement is seen. The intracranial arterial flow voids are intact. Cavum septum pellucidum. IMPRESSION: No pituitary gland abnormality. No convincing MRI evidence for pituitary micro or macroadenoma. If t he patient has abnormal labs and/or symptoms possibly related to pituitary neoplasm I would consider repeat MRI in 6-12 months time to reassess.
== END | disposition home or self-care (01) ==
LOC: RADMRIMAIN 11:05
PROVIDERS: ATTEND Family Medicine
DX: R79.89 Other specified abnormal findings of blood chemistry (principal)
CPT/HCPCS: 70553; A9585